=== PATIENT | female | born 1990 | race Caucasian/White ===

== ENCOUNTER 2017-03-26 05:33 | Emergency (ER) | payer SELFPAY ==
[~2017-03-26] VITALS: Ht 162.6 cm; Wt 52.2 kg
[~2017-03-26 05:33] MED LIST: ACYCLOVIR800 MG PO; AUGMENTIN1 TA2 PO; BACTRIM DS 8001 TA1 PO; BACTRIM DS 8001 TAB PO; BACTROBAN2% TP; BENTYL10 MG OR; CIPRO 500MG TA500 MG PO; DARVOCET-N 1001 EACH PO; KEFLEX 500MG.500 MG PO; LORTAB 5/500 501 TAB PO; MAGMTHWSH PO; NO HOME MEDS; NOMEDS XX; PRENATAL PLUS1 TA1 PO; PYRIDIUM 200MG200 MG PO; SEPTRA DS 800 M1 TAB PO; ULTRAM50 MG PO; VICODIN 5/500 T1 TAB PO
[2017-03-26 06:04] LABS: URINE BILIRUBIN - DIPSTICK NEGATIVE (NEG); URINE BLOOD 2+ (NEG)
[2017-03-26 06:16] LABS: LYMPH # 3.2 K/mm3 (0.7-4.5); LYMPH % 23.2 % (10-50.0)
[2017-03-26 06:19] LABS: URINE SQUAMOUS CELLS OCC #/hpf (0-5)
[2017-03-26 06:21] LABS: HEMOGLOBIN 12.7 g/dL (12.2-16.2)
--- NOTE | 2017-03-26 06:49 | Emergency Room Report ---
History of Present Illness Time Seen by MD Valdes Presenting Problem in Triage Pt arrived:Walked Presenting Problem:C/O PELVIC AND LOW BACK PAIN FOR 4 DAYS. 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 N Clinical Suspician of Infection? Y Mental Status: 1 - Regular (Normal Baseline) Sepsis Risk:Low Sepsis Risk Have you (or family members/close friends) recently traveled outside the [place]? N If Yes, where/when: Have you had exposure to infectious disease within the past month? N TB? Other? Specify: Source patient, RN notes reviewed, family, old records Exam Limitations no limitations Comment pt with 4 day hx of lower abd pain with no fever or vag d/c and she has urinary sx -no vomitnig or diarrhea Cardiac Chest Pain Chest pain indicative of cardiac No Timing/Duration this evening Severity moderate ALLERGIES Coded Allergies: Penicillins (03/26/17) Home Medications Reported Medications No Known Home Medications History Medical History General CAD? No Angina: No PR: No Hypertension? No Hyperlipidemia? No CHF? No DVT? No PE? No COPD? No Asthma? No Anemia? No GERD? No Gastric ulcers? No GI Bleed? No Hernia? No Thyroid Problems? No Hypothyroidism? No CVA? No Seizures? No Diabetes? No Insulin Dependent: No Insulin Pump: No Home FSBS? No Renal Insuffiency? No End Stage Renal Disease? No UTI? Yes Stones? No BPH? No GB Disease: No Nephritic Syndrome? No Asplenia? No Hepatitis? Yes Sickle Cell Disease? No Arthritis? No Migraines? No Cataracts? No Glaucoma? No MRSA? No HIV? No TB? No Anxiety? Yes Depression? Yes Cancer? No More? 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 Respiratory denies cough, denies shortness of breath, denies wheezing Cardiovascular denies chest pain, denies palpitations, denies syncope Gastrointestinal see HPI, abdominal pain, nausea, denies vomiting Genitourinary see HPI, dysuria, frequency. denies: discharge. Musculoskeletal denies back pain, denies joint pain, denies joint swelling, denies neck pain Skin denies rash Psychiatric/Neurological denies headache, denies seizure Physical Exam Vital Signs Vital Signs Date Time Temp Pulse Resp B/P Pulse O2 O2 Flow FiO2 Ox Delivery Rate 03/26 0540 100.3 58 20 115/83 95 - WBC >12,000 or <4,000 or 10% bands? 2 or more SIRS Criteria Met? B/P:115/83 MAP:93 Creatinine >2.0? UA output<0.5ml/kg/hr for 2 hrs? Platelet count >100,000? Lactate >2.0mmol/1? INR >1.2 or PTT > than 60 sec? Evidence of Organ Dysfunction? Provider documented clinical suspician of infection? Y Sepsis Criteria Count: 1 Sepsis Risk: Low Sepsis Risk General Appearance no apparent distress Eye Exam - bilateral eye PERRL, bilateral eye EOMI Ear, Nose, Throat normal ENT inspection Neck supple Respiratory Status No: respiratory distress. 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 No Results/Orders Laboratory Tests 03/26/17 0600: Lactic Acid 1.3 03/26/17 0600: Sodium 135 L, Potassium 3.7, Chloride 98, Carbon Dioxide 24, BUN 8, Creatinine 0.9, Estimated Creat Clear 79, Estimated GFR (MDRD) 77, Glucose 179 H, Calcium 9.0, Total Bilirubin 0.3, AST 18, ALT 18, Alkaline Phosphatase 104, Total Protein 8.6 H, Albumin 3.4, Globulin 5.2 H, Albumin/Globulin Ratio 0.7 L, WBC 13.8 H, RBC 4.20, Hgb 12.7, Hct 37.0, MCV 88.1, RDW 13.8, Plt Count 387, MPV 7.5, Gran % 71.6, Gran # 9.9 H, Lymphocytes % 23.2, Monocytes % 4.6, Eosinophils % 0.3, Basophils % 0.3, Lymphocytes # 3.2, Monocytes # 0.6, Eosinophils # 0.0, Basophils # 0.0, PUBS MCHC 34.2, MCH 30.1 03/26/17 0540: Urine Color YELLOW, Urine Appearance CLEAR, Urine pH 6.0, Ur Specific [place] 1.010, Urine Protein 2+ H, Urine Ketones NEGATIVE, Urine Blood 2+ H, Urine Nitrate NEGATIVE, Urine Bilirubin NEGATIVE, Urine Urobilinogen 0.2, Ur Leukocyte Esterase 3+ H, Urine RBC 5-10, Urine WBC 20-50, Ur Squamous Epith Cells OCC, Urine Bacteria 1+, Urine Mucus OCC, Urine Glucose NEGATIVE Current Medication Orders Sig/Lisa Start time Last Medication Dose Route Stop Time Status Admin Ceftriaxone Sodium 1 GM ONCE ONE 03/26 0745 r Sodium Chloride 50 ML IV 03/26 0814 Ketorolac 30 MG ONCE ONE 03/26 0745 AC Tromethamine IV 03/26 0746 Ceftriaxone Sodium 0 .STK-MED ONE 03/26 0741 DCr IV Ketorolac 0 .STK-MED ONE 03/26 0741 DC Tromethamine .ROUTE Sodium Chloride 50 ML .STK-MED ONE 03/26 0741 DC IV Sodium Chloride 10 ML PRN PRN 03/26 0600 AC IV 03/27 0548 Orders Procedure Date/time Status DIET-NOTHING BY MOUTH 03/[address] ABD & PELVIS W/O CONTRAST 03/[address] ABD/PELVIS REQ 03/26 617 Complete IV SALINE LOCK 03/26 549 Active CULTURE, BLOOD 03/26 549 Active URINALYSIS/COMPLETE 03/26 549 Complete URINE 03/26 549 Complete LACTIC ACID 03/26 549 Complete CBC WITH AUTO DIFF 03/26 549 Complete CHEM 12 PROFILE 08/29 0549 Complete CULTURE, URINE 03/26 0540 Active XRAY/CT/US XRAY/CT/US CT abdomen, pelvis CT interpretation by discussed w/radiologist Time results known: 733 CT Results normal/NAD Departure Departure Time of Disposition 733 Disposition DC Home or Self Care(routine) Clinical Impression Primary Impression: UTI (urinary tract infection) Qualifiers: Urinary tract infection type: acute cystitis Hematuria presence: without hematuria Qualified Code: N30.00 - Acute cystitis without hematuria Condition STABLE Referrals Robe CHAVEZ,Taj Beal Patient Instructions DI for Urinary Tract Infection (UTI) Additional Instructions use meds and see dr burton and pcp for follow up Discharge Counseling Counseled pt/family regarding diagnosis, test results, medications/RX, follow up needs Prescriptions Current Visit Scripts Ciprofloxacin HCl (Cipro 500MG TAB) 500 MG PO BID #14 TAB ED Critical Care Critical Care No at 0743
[2017-03-26] MEDS ORDERED: CIPRO 500MG TA500 MG PO (07:43)
[2017-03-26 08:41] VITALS: BP 100/53
--- NOTE | 2017-03-26 09:48 | RADIOLOGY REPORT PS360 ---
CT ABD PELVIS W/O CONTRAST CLINICAL INDICATION: Abdominal pain, lower pelvic pain, bilateral flank pain C/O PELVIC AND LOW BACK PAIN ORDERING PHYSICIAN: Kendall Garcia MD PATIENT AGE: 26 years COMPARISON: 11/04/2007 TECHNIQUE: Axial images obtained with sagittal and coronal reformats. PROCEDURE: Oral Contrast: None IV Contrast: None . FINDINGS: Study is limited without IV and oral contrast with multiple unopacified bowel loops which could obscure or mimic pathology. Clear lung bases. Liver, gallbladder, spleen, adrenal glands, and pancreas have an unremarkable unenhanced CT appearance. No obvious renal or ureteral calculi. No hydronephrosis. The left kidney is somewhat larger than the right is of questionable clinical significance. Unremarkable appendix. Moderate amount retained colonic feces. Multiple fluid-filled bowel loops are present in the pelvis which could obscure or mimic pathology. There is a IUD in place. Small amount of fluid noted in the pelvis. No free air. No acute bony anomalies. IMPRESSION: 1. Somewhat limited exam without IV and oral contrast. Multiple unopacified bowel loops are present which could obscure or mimic pathology. 2. Mildly prominent fluid-filled small bowel loops in the pelvis and left abdominal region. No obvious transition point. This may reflect ileus or enteritis. 3. Moderate amount retained colonic feces. 4. Left kidney appears somewhat larger than the right of questionable clinical significance. Urinary tract infection is a consideration. Please correlate with clinical findings.
== END 2017-03-26 08:42 | disposition home or self-care (01) ==
LOC: ER 05:33
PROVIDERS: Emergency Medicine
DX: N30.00 Acute cystitis without hematuria (principal); Z72.0 Tobacco use

== ENCOUNTER 2017-03-27 00:58 | Inpatient (IN) | payer SELFPAY ==
[2017-03-27] VITALS (8 sets, daily range): BP systolic 101–129; BP diastolic 55–80
[~2017-03-27] VITALS: Ht 162.6 cm; Wt 52.2 kg
[2017-03-27 01:31] LABS: HEMOGLOBIN 11.8 g/dL (12.2-16.2); LYMPH # 3.4 K/mm3 (0.7-4.5); LYMPH % 30.6 % (10-50.0)
--- NOTE | 2017-03-27 01:36 | Emergency Room Report ---
History of Present Illness Time Seen by MD Lozada Presenting Problem in Triage Pt arrived:Walked Presenting Problem:ABNORMAL BLOOD CX Onset of symptoms date/time:/ or onset unknown for:MEDICAL HX UNKNOWN Treatment Prior to Arrival: PT STATED SHE TOOK 1 TYLENOL 3 THAT WAS PERSCRIBED TO HER AT THE LAST VISIT TO THE ER. 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 Y Clinical Suspician of Infection? Y Mental Status: 1 - Regular (Normal Baseline) Sepsis Risk:Possible Sepsis Risk Have you (or family members/close friends) recently traveled outside the [place]? N If Yes, where/when: Have you had exposure to infectious disease within the past month? N TB? Other? Specify: Source patient, RN notes reviewed, old records Exam Limitations no limitations Comment pt with hx of iv drug use and was seen in am with lower abd pain and was sent home on cipro did not fill and had pos gram neg rods blood culture- pt with no fever or rash and no chest or jt pain - she was contcted and returned to ed - Cardiac Chest Pain Chest pain indicative of cardiac No Timing/Duration this evening Severity moderate ALLERGIES Coded Allergies: Penicillins (03/26/17) Home Medications Active Scripts Ciprofloxacin HCl (Cipro 500MG TAB) 500 MG PO BID #14 TAB Prov: 03/26/17 History Medical History General CAD? No Angina: No DE: No Hypertension? No Hyperlipidemia? No CHF? No DVT? No PE? No COPD? No Asthma? No Anemia? No GERD? No Gastric ulcers? No GI Bleed? No Hernia? No Thyroid Problems? No Hypothyroidism? No CVA? No Seizures? No Diabetes? No Insulin Dependent: No Insulin Pump: No Home FSBS? No Renal Insuffiency? No End Stage Renal Disease? No UTI? Yes Stones? No BPH? No GB Disease: No Nephritic Syndrome? No Asplenia? No Hepatitis? Yes Sickle Cell Disease? No Arthritis? No Migraines? No Cataracts? No Glaucoma? No MRSA? No HIV? No TB? No Anxiety? Yes Depression? Yes Cancer? No More? 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 Respiratory see HPI, cough, denies shortness of breath, denies wheezing Cardiovascular denies chest pain, denies palpitations, denies syncope Gastrointestinal see HPI, nausea, denies vomiting Genitourinary denies: dysuria, frequency, hesitancy, hematuria. Musculoskeletal denies back pain, denies joint pain, denies joint swelling, denies neck pain Skin denies rash Psychiatric/Neurological see HPI, denies headache, denies seizure, other Physical Exam Vital Signs Vital Signs Date Time Temp Pulse Resp B/P Pulse O2 O2 Flow FiO2 Ox Delivery Rate 03/27 0203 98.3 108 20 109/61 99 03/27 0102 98.3 110 20 129/80 98 - WBC >12,000 or <4,000 or 10% bands? 2 or more SIRS Criteria Met? B/P:109/61 MAP:96 Creatinine >2.0? UA output<0.5ml/kg/hr for 2 hrs? Platelet count >100,000? Lactate >2.0mmol/1? INR >1.2 or PTT > than 60 sec? Evidence of Organ Dysfunction? Provider documented clinical suspician of infection? Y Sepsis Criteria Count: 2 Sepsis Risk: Possible Sepsis Risk General Appearance no apparent distress Eye Exam - bilateral eye PERRL, bilateral eye EOMI Ear, Nose, Throat normal ENT inspection Neck supple Respiratory Status No: respiratory distress. Lung Sounds bilateral: lungs clear. 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 No Results/Orders Laboratory Tests 03/27/17 0140: Opiates Screen POSITIVE H, Urine Methadone Screen NEGATIVE, Barbiturates NEGATIVE, Phencyclidine Screen NEGATIVE, Amphetamines Screen POSITIVE H, Benzodiazepines Screen NEGATIVE, Cocaine Screen NEGATIVE, Marijuana (THC) Screen POSITIVE H, Urine Color DK YELLOW, Urine Appearance SL CLOUDY, Urine pH 6.0, Ur Specific [place] 1.020, Urine Protein 1+ H, Urine Ketones NEGATIVE, Urine Blood 1+ H, Urine Nitrate NEGATIVE, Urine Bilirubin NEGATIVE, Urine Urobilinogen 0.2, Ur Leukocyte Esterase 1+ H, Urine RBC 5-10, Urine WBC 20-50, Ur Squamous Epith Cells 3-5, Urine Bacteria 1+, Urine Mucus OCC, Urine Glucose NEGATIVE 03/27/17 013: Lactic Acid 1.9 03/27/17 013: Sodium 135 L, Potassium 3.5, Chloride 96 L, Carbon Dioxide 27, BUN 11, Creatinine 1.0, Estimated Creat Clear 71, Estimated GFR (MDRD) 68, Glucose 100, Calcium 8.7, Total Bilirubin 0.4, AST 23, ALT 27, Alkaline Phosphatase 105, Creatine Kinase 44, CK-MB (CK-2) Rel Index 1.1, CK and CKMB Interp < 0.5, Troponin I < 0.02, Total Protein 8.6 H, Albumin 3.4, Globulin 5.2 H, Albumin/ Globulin Ratio 0.7 L, WBC 11.2 H, RBC 3.93 L, Hgb 11.8 L, Hct 35.6 L, MCV 90.6, RDW 13.6, Plt Count 365, MPV 8.1, Gran % 64.7, Gran # 7.3, Lymphocytes % 30.6, Monocytes % 4.1, Eosinophils % 0.4, Basophils % 0.3, Lymphocytes # 3.4, Monocytes # 0.5, Eosinophils # 0.0, Basophils # 0.0, PUBS MCHC 33.0, ESR 108 H, MCH 29.9 Current Medication Orders Sig/Lisa Start time Last Medication Dose Route Stop Time Status Admin Sodium Chloride 10 ML PRN PRN 03/27 115 AC IV 03/28 115 Orders Procedure Date/time Status Decision to admit 08/30 0238 Active CHEST(2 VIEWS-NOT PORTABLE) 03/27 235 Active IV SALINE LOCK 03/27 116 Active CULTURE, BLOOD 03/27 116 Active URINALYSIS/COMPLETE 03/27 116 Complete LACTIC ACID 03/27 116 Complete SED RATE 03/27 116 Complete DRUG ABUSE SCREEN (TRIAGE) 03/27 116 Complete C-REACTIVE PROTEIN 03/27 116 Complete COMPLETE METABOLIC PANEL 03/27 116 Complete CBC WITH AUTO DIFF 03/27 116 Complete CARDIAC ENZYMES 03/27 116 Complete XRAY/CT/US XRAY/CT/US XRAY chest XR interpretation by reviewed by me Xray Results normal/NAD Departure Departure Time of Disposition 0252 Disposition Still a Patient Clinical Impression Primary Impression: Gram-negative bacteremia Secondary Impressions: IV drug abuse, Tobacco use Condition STABLE ED Critical Care Critical Care No at 0304
[2017-03-27 01:44] LABS: URINE BILIRUBIN - DIPSTICK NEGATIVE (NEG); URINE BLOOD 1+ (NEG)
[2017-03-27 01:58] LABS: AMPHETAMINES/METAMPHETAMINES POSITIVE ng/mL (<1000)
[2017-03-27 02:04] LABS: BUN 11 mg/dL (7-18); GFR (ESTIMATED) 68 ML/MIN (59-)
--- NOTE | 2017-03-27 05:59 | RADIOLOGY REPORT PS360 ---
CHEST(2 VIEWS-NOT PORTABLE) HISTORY: cough ORDERING PHYSICIAN: Magen Garcia MD PATIENT AGE: 26 years COMPARISON: 12/20/2009 FINDINGS: Unremarkable cardiovascular structures. Hyperinflation with attenuation of the peripheral pulmonary vessels consistent with small airway disease. There is prominence of the anterior clear space. No lobar consolidation or collapse. No acute bony anomalies IMPRESSION Hyperinflation which may be seen with asthma or bronchitis, otherwise negative
--- NOTE | 2017-03-27 12:02 | ACUTE CARE PROGRESS NOTE (QUA) ---
Progress Notes Subjective Date 03/27/17 Time 1158 Assessment/Plan Problem List 1. Gram-negative bacteremia 2. UTI (urinary tract infection) Plan: make medication changes This inpt stay is expected to cross 2 MNs from start of care Yes Antibiotic Stewardship (2) Current Culture Results Microbiology 03/27 130 BLOOD: Anaerobic Blood Culture - RECD 03/27 130 BLOOD: Aerobic Blood Culture - RECD INITIAL PCR RESULTS = E COLI Infxn that will respond? Yes Right drug,dose,and route? Yes (CHANGED ANTIBIOTIC SELECTION) More targeted antbx? Yes Comment: PT EMPIRICALLY STARTED ON LEVQUIN FOR UTI/POSITIVE BLOOD CULTURES. PHARMACIST REVIEWED C&S AND PCR INITIAL RESULTS SHOWED E COLI. BASED ON FACILITY'S ANTIBIOGRAMS, SUGGESTED SWITCHING FROM LEVAQUIN TO ROCEPHIN 1 GM IVPB EVERY 24 HOURS. CHUCHO BRUNO APRN AGREED. at 1201
--- NOTE | 2017-03-27 12:48 | PHARMACY CLINIC NOTE ---
Patient Demographics Patient Demographics Admission date: 03/27/17 Date: 03/27/17 Time: 1247 Allergies Coded Allergies: Penicillins (03/26/17) HEIGHT- FT: 5 IN: 4.00 K.164 VTE General Information Labs: Laboratory Tests 03/27 0130 Hematology Hgb (12.2 - 16.2 g/dL) 11.8 L Hct (37.0 - 47.0 %) 35.6 L Plt Count (142 - 424 K/mm3) 365 Disclaimer The following section includes nursing documentation that has been pulled in for pharmacy review. Patient's VTE score: 1 Patient's VTE Risk: VERY LOW RISK Clinical trial participant? No VTE prophylaxis [id number] [id number] VTE prophylaxis ordered? Yes Type of prophylaxis/treatment: MINNIE at [id number]
--- NOTE | 2017-03-27 13:21 | HISTORY AND PHYSICAL REPORT ---
Demographics: Admit date: 03/27/17 Chief complaint: positive blood culture PRIMARY DIAGNOSIS: GRAM NEGATIVE BACTERIA Allergies: Coded Allergies: Penicillins (03/26/17) History of present illness: History of present illness: this wf who was in the ed on the and had evaal for lower abd pain with possible uti and stable labs and nondiagnostic ct - she was d/c on cipro and follow up in office- she was discovered to have positive e coli blood cultures and i called pt to return to ed for eval- she had not started abx but had been given abx iv on prev visit- she admitted to iv drug use and no other acute c/o except feeling ill- she was admitted for eval and treatment as inc esr and c reat protein - Past medical history: Family HX Family Hx Insignificant Yes Immunization HX DT/Tetanus 1-4 Years Ago Pneumonia Never Had TB Test in last year Yes Result Unknown General CAD? No Angina: No IN: No Hypertension? No Hyperlipidemia? No CHF? No DVT? No PE? No COPD? No Asthma? No Anemia? No GERD? No Gastric ulcers? No GI Bleed? No Hernia? No Thyroid Problems? No Hypothyroidism? No CVA? No Seizures? No Diabetes? No Insulin Dependent: No Insulin Pump: No Home FSBS? No Renal Insuffiency? No UTI? Yes Stones? No BPH? No GB Disease: No Nephritic Syndrome? No Asplenia? No Hepatitis? Yes Sickle Cell Disease? No Arthritis? No Migraines? No Cataracts? No Glaucoma? No MRSA? No HIV? No TB? No Anxiety? Yes Depression? Yes Cancer? No More? Yes Additional hx: HEP C Past Surgical HX Previous Surgery?Y Tonsils MYRINGOTOMY D&E 02/08/08 Current home meds: Active Scripts Ciprofloxacin HCl (Cipro 500MG TAB) 500 MG PO BID #14 TAB Prov: 03/26/17 Social Hx: Smoking HX Tobacco Yes Type Cigarettes Packs/day < 1 PACK Are you/the child exposed to second-hand smoke: No Alcohol Alcohol: No Hx of Drug Use Drug Use? Yes Drug(s) of Choice: heroin Patien't marital status is single Patient's support system is fair Review of systems: Constitutional see HPI, malaise. No: chills, fever. Eyes No: drainage. Ears, Nose, Mouth, Throat No ear discharge, No epistaxis, No throat pain Respiratory No: cough, shortness of breath, wheezing. Cardiovascular No chest pain, No palpitations, No syncope Gastrointestinal/Abdominal see HPI, No abdominal pain, No nausea, poor appetite, poor fluid intake, No vomiting Genitourinary No: discharge, dysuria, frequency, hesitancy, hematuria. Musculoskeletal No: back pain, joint pain, joint swelling, neck pain. Skin No: rash. Neurological No: headache, parasthesia, seizure disorder. Psychiatric No: no symptoms reported. Exam: Lab data for last 24 hours: Laboratory Tests 03/27/17 0140: Opiates Screen POSITIVE H, Urine Methadone Screen NEGATIVE, Barbiturates NEGATIVE, Phencyclidine Screen NEGATIVE, Amphetamines Screen POSITIVE H, Benzodiazepines Screen NEGATIVE, Cocaine Screen NEGATIVE, Marijuana (THC) Screen POSITIVE H, Urine Color DK YELLOW, Urine Appearance SL CLOUDY, Urine pH 6.0, Ur Specific [place] 1.020, Urine Protein 1+ H, Urine Ketones NEGATIVE, Urine Blood 1+ H, Urine Nitrate NEGATIVE, Urine Bilirubin NEGATIVE, Urine Urobilinogen 0.2, Ur Leukocyte Esterase 1+ H, Urine RBC 5-10, Urine WBC 20-50, Ur Squamous Epith Cells 3-5, Urine Bacteria 1+, Urine Mucus OCC, Urine Glucose NEGATIVE 03/27/17 0130: Lactic Acid 1.9 03/27/17 0130: Sodium 135 L, Potassium 3.5, Chloride 96 L, Carbon Dioxide 27, BUN 11, Creatinine 1.0, Estimated Creat Clear 71, Estimated GFR (MDRD) 68, Glucose 100, Calcium 8.7, Total Bilirubin 0.4, AST 23, ALT 27, Alkaline Phosphatase 105, Creatine Kinase 44, CK-MB (CK-2) Rel Index 1.1, CK and CKMB Interp < 0.5, Troponin I < 0.02, Total Protein 8.6 H, Albumin 3.4, Globulin 5.2 H, Albumin/ Globulin Ratio 0.7 L, WBC 11.2 H, RBC 3.93 L, Hgb 11.8 L, Hct 35.6 L, MCV 90.6, RDW 13.6, Plt Count 365, MPV 8.1, Gran % 64.7, Gran # 7.3, Lymphocytes % 30.6, Monocytes % 4.1, Eosinophils % 0.4, Basophils % 0.3, Lymphocytes # 3.4, Monocytes # 0.5, Eosinophils # 0.0, Basophils # 0.0, PUBS MCHC 33.0, ESR 108 H, MCH 29.9 Microbiology 03/27 130 BLOOD: Anaerobic Blood Culture - RECD 03/27 130 BLOOD: Aerobic Blood Culture - RECD 03/27 130 BLOOD: Anaerobic Blood Culture - RECD 03/27 130 BLOOD: Aerobic Blood Culture - RECD Admission vital signs: 1ST Vital Signs Result Date Time Pulse Ox 98 03/27 102 B/P 129/80 03/27 102 Temp 98.3 03/27 102 Pulse 110 03/27 102 Resp 20 03/27 102 O2 Delivery OXYGEN 03/27 321 Exam General appearance: alert, awake Eyes: anicteric, PERRLA ENT: dry mucous membranes Neck: no JVD Cardiovascular: regular rate & rhythm, murmur Respiratory: clear to auscultation, no respiratory distress ABD: soft, no tenderness, no guarding, no organomegaly Genitourinary: no hematuria Extremities: moves all, no calf tenderness Musculoskeletal: equal muscle strength Skin: intact 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 Gram-negative bacteremia 2. UTI (urinary tract infection) 3. IV drug abuse 4. Tobacco use Plan: will give abx for 10 days at 1320
--- NOTE | 2017-03-27 17:01 | RADIOLOGY REPORT PS360 ---
PROCEDURE: 2-D M-mode and color Doppler study INDICATIONS FOR THE TEST: Chest pain + COPD Heart Murmur Tobacco Smoking+ Palpitations Fatigue Syncope Edema Hypertension Diabetes Mellitus Rheumatic Fever SOB PATRICK Obesity Hyperlipidemia Family History HD Additional History DRUG USER CRYSTAL METH DRUG OF CHOICE, HEROIN USER, + DRUG CULTURES PATIENT INFORMATION HEIGHT: 64 WEIGHT:115 GENDER: Female B/P: 2-D/M-MODE INTERPRETATION: 2-D MEASUREMENTS OBSERVED VALUES IN CMS Right Ventricular Dimension (RVDd) 2.2 Interventricular Septum (Thickness)(IVsd) 0.9 Left Ventricular Internal Dimensions(LVIDd) 4.8 Left Ventricular Posterior Wall (Thickness)(LVPWd) 0.7 Aortic Root 3.0 Aortic Cusp Separation 2.1 Left Atrial Dimensions (LAD) 2.7 2D 1. Left atrium is normal size, left ventricle is normal size, there is no concentric left ventricular hypertrophy, visually estimated ejection fraction 55% with no obvious regional wall motion abnormality. 2. The right atrium and right ventricle are normal size and contractility. 3. The aortic, mitral and tricuspid valve are grossly normal. 4. The pulmonic valve is poorly visualized. 5. No significant pericardial effusion noted. DOPPLER INTERROGATION: Doppler interrogation of the aortic mitral and tricuspid valvular presence of trace mitral and tricuspid regurgitation, tricuspid and jet velocity insufficient for calculation of the right ventricular systolic pressure, diastolic parameters are within normal range. CONCLUSION: 1. Normal left ventricular size, preserved left ventricular systolic function, visually estimated ejection fraction 55% with no obvious regional wall motion abnormality ,diastolic parameters are within normal range. 2. Trace mitral and tricuspid regurgitation. 3. No significant pericardial effusion noted.
[2017-03-28 03:11] VITALS: BP 103/59
[2017-03-28 06:00] VITALS: BP 103/60
[2017-03-28 06:18] LABS: LYMPH # 3.6 K/mm3 (0.7-4.5)
[2017-03-28 06:43] LABS: HEMOGLOBIN 10.7 g/dL (12.2-16.2)
[2017-03-28 08:00] VITALS: BP 103/64
[2017-03-28 08:40] LABS: HIV Screen 4th Generation wRfx Non Reactive (Non Reactive)
[2017-03-28 08:49] VITALS: BP 103/60
--- NOTE | 2017-03-28 09:00 | ACUTE CARE PROGRESS NOTE (QUA) ---
Progress Notes Subjective Date 03/28/17 Time 0857 Patient/family reports: feeling better Nursing reports: alert, no complaints Objective Findings Laboratory Tests 03/28/17 0555: Sodium 139, Potassium 4.1, Chloride 104, Carbon Dioxide 29, BUN 5 L, Creatinine 0.8, Estimated Creat Clear 89, Estimated GFR (MDRD) 88, Glucose 110 H, Calcium 8.3 L, WBC 7.9, RBC 3.64 L, Hgb 10.7 L, Hct 33.1 L, MCV 90.8, RDW 13.6, Plt Count 383, MPV 7.7, Gran % 47.0, Gran # 3.7, Lymphocytes % 45.0, Monocytes % 4.8 , Eosinophils % 2.7, Basophils % 0.5, Lymphocytes # 3.6, Monocytes # 0.4, Eosinophils # 0.2, Basophils # 0.0, PUBS MCHC 32.1, MCH 29.1 Vital Signs Date Time Temp Pulse Resp B/P Pulse O2 O2 Flow FiO2 Ox Delivery Rate 03/28 0849 98.4 77 18 103/60 96 03/28 0600 98.4 77 18 103/60 96 ROOM AIR 03/28 0311 98.9 95 18 103/59 99 ROOM AIR 03/27 2025 98.2 88 18 102/64 98 03/27 2000 98.2 88 18 102/64 98 ROOM AIR 03/27 1600 98.0 78 18 112/55 99 ROOM AIR Current Medications Diphenhydramine HCl 25 MG Q6HP PRN PO Diphenhydramine HCl 0 .STK-MED ONE PO (DC) Levofloxacin/Dextrose 150 ML 2100 IV (DC) Sodium Chloride 1,000 ML .STK-MED ONE IV (DC) Nicotine 0 .STK-MED ONE TD (DC) Ceftriaxone Sodium 1 GM 1300 IV Sodium Chloride 50 ML Acetaminophen 650 MG Q4HP PRN PO Acetaminophen/Codeine Phosphate 1 EACH Q4HP PRN PO Nicotine 21 MG DAILYP PRN TD Ondansetron HCl 4 MG Q6HP PRN IV Sodium Chloride 1,000 ML .Q10H IV Sodium Chloride 10 ML PRN PRN IV Last VS-Temp:98.4 B/P:103/60 Pulse:77 Resp:18 SaO2:96 ROOM AIR Last weight lbs:115 oz:0 [id number] Method:Stated Exam General appearance: normal appearance, awake, no acute distress Eyes: normal exam ENT: normal exam Neck: normal inspection Cardiovascular: normal exam, regular rate & rhythm Respiratory: normal exam ABD: normal exam, soft Genitourinary: normal voiding & quantity Extremities: normal exam Musculoskeletal: normal exam Skin: normal exam, intact, warm Neuro: normal exam, alert, intact, oriented Reviewed: allergies, medications, vital signs, lab results Assessment/Plan Problem List 1. Gram-negative bacteremia 2. UTI (urinary tract infection) 3. IV drug abuse 4. Tobacco use Patient condition Stable Plan: continue current care This inpt stay is expected to cross 2 MNs from start of care Yes Comments: ROUNDED WITH CALLIE, patient will talk with friends to see if she has away to get back to the hospital every day for 10 days for IM injections Antibiotic Stewardship (2) Current Culture Results Microbiology 03/27 130 BLOOD: Anaerobic Blood Culture - RECD 03/27 130 BLOOD: Aerobic Blood Culture - RECD Infxn that will respond? Yes Right drug,dose,and route? Yes (CHANGED ANTIBIOTIC SELECTION) More targeted antbx? Yes at 0900
[2017-03-28 09:42] LABS: HBsAg Screen Negative (Negative); Hep A Ab, IgM Negative (Negative); Hep B Core Ab, IgM Negative (Negative); Hep C Virus Ab >11.0 (0.0-0.9)
[2017-03-28 15:59] VITALS: BP 92/64
[2017-03-28] MEDS ORDERED: INVANZ 1 GM1 GM IM (17:13)
--- NOTE | 2017-03-28 17:18 | DISCHARGE SUMMARY STANDARD ---
Demographics Admit date: 03/27/17 Discharge date: 03/28/17 History of present illness History of present illness this wf who was in the ed on the and had evaal for lower abd pain with possible uti and stable labs and nondiagnostic ct - she was d/c on cipro and follow up in office- she was discovered to have positive e coli blood cultures and i called pt to return to ed for eval- she had not started abx but had been given abx iv on prev visit- she admitted to iv drug use and no other acute c/o except feeling ill- she was admitted for eval and treatment as inc esr and c reat protein - Hospital Course Hospital Course: bacterima/uti- iv antibotics, monitoring vs and conditon, Blood cx + for ecoli- neg esbl- sensitive to invanz pt states doing better today would like to go home and come back daily for im injections x 10 days. pt has found tranportation for daily injections x 10 days. Discharge diagnoses Problem List 1. Gram-negative bacteremia 2. UTI (urinary tract infection) 3. IV drug abuse 4. Tobacco use Medications Medications: Discharge meds are as noted. Follow up Follow up in office in: 5 DAYS with: Thomas CHAVEZ,Magen Zavala Comment: rounded with thomas at [id number]
[2017-03-28 18:08] VITALS: BP 92/64
--- OUTSIDE RECORDS SUMMARY | 2017-05-03 10:11 | External Medical Summary Rpt ---
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 t by Light microsc opy Erythro 5-10 0 complet cytes 017 ed [Presen 05:40 ce] in Urine sedimen t by Light microsc opy Epithel OCC 0#/hp complet ial 017 f - ed cells.s 05:40 5#/hp quamous f [Presen ce] in Urine sedimen t by Microsc opy high power field Leukocy 20-50 O complet cary 017 wbc/hpf ed [#/volu 05:40 me] in Urine Urinalysis dipstick W Reflex Microscopic panel in Urine (03-26-2017 05:40) Appeara CLEAR CLEAR complet nce of 017 ed Urine 05:40 Bilirub NEGATIV NEG complet in 017 E ed [Presen 05:40 ce] in Urine by Test strip Erythro 2+ NEG Abnorma complet cytes 017 l ed [Presen 05:40 ce] in Urine Color YELLOW YELLOW complet of 017 ed Urine 05:40 Ketones NEGATIV NEG complet 017 E ed [Presen 05:40 ce] in Urine by Automat ed test strip Mucus 3+ NEG Abnorma complet [Presen 017 l ed ce] in 05:40 Urine sedimen t by Light microsc opy Nitrite NEGATIV NEG complet 017 E ed [Presen 05:40 ce] in Urine by Test strip Urobili 0.2 NEG complet nogen 017 ed [Presen 05:40 ce] in Urine by Test strip B-HCG Ur Ql (05-28-2013 16:30) B-HCG NEGATIV NEG complet Ur Ql 013 E ed 16:30 URINALYSIS/COMPLETE (05-28-2013 16:30) URINE 05-28- YELLOW YELLOW complet COLOR 013 ed 16:30 URINE 05-28- CLEAR CLEAR complet APPEARA 013 ed NCE 16:30 URINE 05-28- NEGATIV NEG complet GLUCOSE 013 E ed - 16:30 DIPSTIC K URINE 05-28- 2+ NEG complet BILIRUB 013 ed IN - 16:30 DIPSTIC K URINE 05-28-2 1+ NEG complet KETONE 013 mg/dL ed 16:30 URINE 05-28-2 Greater 1.005-1 complet SPECIFI 013 than .030 ed C 16:30 or GRAVITY equal to 1.030 URINE 05-28-2 3+ NEG complet BLOOD 013 ed 16:30 URINE 05-28-2 6.5 UNK 5.0-8.5 complet PH 013 ed 16:30 URINE 05-28-2 3+ NEG complet PROTEIN 013 mg/dL ed - 16:30 DIPSTIC K URINE 05-28-2 1.0 NEG complet UROBILI 013 E.U./dL ed NOGEN - 16:30 DIPSTIC K URINE 05-28-2 POSITIV NEG complet NITRATE 013 E ed - 16:30 DIPSTIC K URINE 05-28-2 TRACE NEG complet LEUK 013 ed ESTERAS 16:30 E URINE 05-28- 50-100 0 complet RBC 013 rbc/hpf ed 16:30 URINE 10-31-2 3-5 O complet WBC 013 wbc/hpf ed 16:30 URINE 10-31-2 OCC 0-5 complet SQUAMOU 013 #/hpf ed S CELLS 16:30 URINE 05-28-2 2+ O complet BACTERI 013 ed A 16:30 Procedures Procedure DOS Code Location Performer Comment INCISION 03729 RADHA RADHA & 3 TRICE TRICE DRAINAGE ABSCESS SIMPLE/SI NGLE IAADIADOO 11186 FLORES FLORES 3 DON DON STREPTOCO CCUS GROUP A RADIOLOGI 62675 [facility] EXAMINATI INC INC ON TIBIA & FIBULA 2 VIEWS RADEX 30487 [facility] ANKLE 3 [facility] COMPLETE INC INC MINIMUM 3 VIEWS CRTCHS E0114 [facility] UNDARM 3 OTH THAN WOOD PAIR PAD TIP&HNDGR IP APPLICATI 92612 [facility] RAMSE[facility] ON LONG 3 [facility] LEG INC INC SPLINT THIGH ANKLE/TOE S ANTIBODY 03767 COMBINED COMBINED CHLAMYDIA 3 PHYSICIAN PHYSICIAN S LA S LA CUL BACT 70675 COMBINED COMBINED XCPT 3 PHYSICIAN PHYSICIAN URINE S LA S LA BLOOD/STO OL AEROBIC ISOL HEPATITIS 99381 [facility] RAMSE[facility] B CORE 3 [facility] ANTIBODY INC INC HBCAB TOTAL HEPATITIS 45057 [facility] RAMSE[facility] B SURF 3 [facility] [address] [facility] RAMSE[facility] HEPATITIS 3 [facility] B INC INC SURFACE ANTIGEN ANTIBODY 13744 [facility] RAMSE[facility] HERPES 3 [facility] SMPLX INC INC TYPE 1 ANTIBODY 02698 [facility] RAMSE[facility] VIRUS NOT 3 [facility] INC INC ELSEWHERE SPECIFIFE D HEPATITIS 33785 [facility] RAMSEY C 3 [facility] ANTIBODY INC INC HEPATITIS 92788 [facility]SE[facility] A 3 [facility] ANTIBODY INC INC HAAB INFLUENZA 73877 ANA M ANA M VACC 2 FRANSICO FRANSICO IIV3 SPLIT VIRUS PRSRV FREE ID INCISION 00580 [facility] & 2 EMERGENCY [place] DRAINAGE PHYS PSC ABSCESS SIMPLE/SI NGLE IADNA 83582 PATHOLOGY PICKLESIM NEISSERIA 2 & ER JR JAIMEE CYTOLOGY GONORRHOE LAB AE AMPLIFIED PROBE TQ CYTP C/V 52745 PATHOLOGY PICKLESIM AUTO THIN 2 & ER JR JAIMEE LYR CYTOLOGY PREPJ SCR LAB MNL RESCR PHYS IADNA 71868 PATHOLOGY PICKLESIM CHLAMYDIA 2 & ER JR JAIMEE CYTOLOGY TRACHOMAT LAB IS AMPLIFIED PROBE TQ ANESTHESI 48232 YOHANNES WHITE III A 2 DAGO OUSMANE DELIVERY ONLY 08768 [facility] DELIVERY 2 OLIVIA OLIVIA ONLY LOW 741 [facility] CERVICAL 2 [facility] [place] [address] DEVONTE GAMA KENNY SURG 2 JIN & PATHOLOGY DUBILIER GROSS&TRICE ROSCOPIC EXAM US PREG 51315 [facility] UTERUS 2 OLIVIA OLIVIA REAL TIME F/U TRNSABDL PER FETUS IADNA 73857 MEDICAL MEDICAL STREPTOCO 2 DIAGNOSTI DIAGNOSTI CCUS C LAB LLC C LAB [facility] GROUP B [place] T[place] P[place] 96685 [facility] UTERUS 1 OLIVIA OLIVIA REAL TIME F/U TRNSABDL PER FETUS SMR PRIM 57791 [facility] SRC WET 1 OLIVIA OLIVIA MOUNT NFCT AGT DIAB G0109 [facility] SELF-MGMT 1 [facility] TRN [facility] HOSP GROUP SESSION PER 30 MIN GLUCOSE 28242 LAB DARLYN LAB DARLYN TOLERANCE 1 AMERIC AMERIC TEST GTT HOLDINGS HOLDING 3 SPECIMENS GLUCOSE 91545 LAB D[facility] LAB DARLYN TOLERANCE 1 AMERIC AMERIC EA ADDL HOLDINGS HOLDING BEYOND 3 SPECIMENS GLUCOSE 00299 LAB [facility] LAB DARLY[facility] POST 1 AMERIC AMERIC GLUCOSE HOLDINGS HOLDING DOSE BLOOD 88424 LAB [facility] LAB D[facility] COUNT 1 AMERIC AMERIC COMPLETE HOLDINGS HOLDING AUTOMATED ANTIBODY 73242 LAB [facility] LAB D[facility] SCREEN 1 AMERIC AMERIC RBC EACH HOLDINGS HOLDING [place] PREG 36846 [place] [facility] UTERUS 1 PIPE ORGAN MECHANIC APPRENTICE OLIVIA AFTER 1ST ASSOCIATE TRIMEST S 1/ GESTATION ALPHA-FET 90641 LAB COR LAB COR OPROTEIN 1 YSABEL YSABEL [place] [address] LAB COR LAB COR ESTRIOL 1 YSABEL YSABEL HOLDING HOLDING [place] GONADOTRO 69159 LAB COR LAB COR PIN 1 YSABEL YSABEL CHORIONIC HOLDING [place] [address] LAB COR LAB COR 1 YSABEL YSABEL HOLDING HOLDING [place] US PREG 49877 [place] [facility] UTERUS 1 PIPE ORGAN MECHANIC APPRENTICE OLIVIA REAL TIME ASSOCIATE W/IMAGE [place] [address] LAB DARLYN LAB DARLYN NON-IMMUN 1 AMERIC AMERIC OLOGIC HOLDING HOLDING OTH/THN CYTOPATHI C US PREG 23367 [place] [facility] UTERUS 1 PIPE ORGAN MECHANIC APPRENTICE OLIVIA REAL TIME ASSOCIATE W/IMAGE S DCMTN TRANSVAG CYTP C/V 27046 PATHOLOGY PATHOLOGY AUTO THIN 1 & & LYR CYTOLOGY CYTOLOGY PREPJ SCR LAB LAB MNL RESCR PHYS IADNA 42032 PATHOLOGY PATHOLOGY NEISSERIA 1 & & CYTOLOGY CYTOLOGY GONORRHOE LAB LAB AE AMPLIFIED PROBE TQ IADNA 18736 PATHOLOGY PATHOLOGY CHLAMYDIA 1 & & CYTOLOGY CYTOLOGY TRACHOMAT LAB LAB IS AMPLIFIED PROBE TQ DRUG SCR G0434 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 NOT 1 Y Y CHROMATOG CORPORATI CORPORATI RAPHIC; ON OF AM ON OF AM ANY NUMBER PT ENC GONADOTRO 90725 COMBINED COMBINED PIN 1 PHYSICIAN PHYSICIAN MOYA S LA S LA QUANTITAT LUIZ ORTHOPANT 55550 THE BA[facility] OGRAM 1 IMPLANT & DON ORAL SURGERY C OPHTH 88636 [place] [facility], MEDICAL 0 VISION CHAPARRITA M XM&EVAL COMPRHNSV ESTAB PT 1/> REMOVAL 73552 [facility] IMPLANTAB 0 PHYSICIAN SUSY LE GROUP CONTRACEP PCC TIVE CAPSULES CYTP C/V 63040 PATHOLOGY PATHOLOGY AUTO THIN 0 & & LYR CYTOLOGY CYTOLOGY PREPJ SCR LAB LAB MNL RESCR PHYS IADNA 34326 PATHOLOGY PATHOLOGY NEISSERIA 0 & & CYTOLOGY CYTOLOGY GONORRHOE LAB LAB AE AMPLIFIED PROBE TQ IADNA 03256 PATHOLOGY PATHOLOGY CHLAMYDIA 0 & & CYTOLOGY CYTOLOGY TRACHOMAT LAB LAB IS AMPLIFIED PROBE TQ ECG 99756 [facility]RA[facility]IO RAMSEY ROUTINE 0 [facility] ECG INC INC W/LEAST 12 LDS TRCG ONLY W/O I&R RADIOLOGI 07638 PAULO ENAMORADO C EXAM 0 MEDICAL NASIM CHEST 2 IMAGING VIEWS ASSOCIATE FRONTAL&L S ATERAL ECG 63603 BRAULIO JORDANMIE ROUTINE 0 [facility] [place] W/LEAST PROF SERV 12 LDS I&R ONLY OPHTH 76600 [place], MEDICAL 9 VISION CHAPARRITA M XM&EVAL COMPRHNSV ESTAB PT 1/> IM ADM 41322 [facility] PRQ ID 9 [facility] SUBQ/IM [facility] NJXS 1 BANK ACCT VACCINE MPSV4 20841 [facility] VACCINE 9 [facility] [place] ACYW-135 BANK ACCT SUBQ USE IM ADM 18497 [facility] PRQ ID 9 HEALTH CO HEALTH SUBQ/IM [facility] NJXS 1 BANK ACCT VACCINE IM ADM 78905 [facility] PRQ ID 8 HEALTH CO HEALTH SUBQ/IM [facility] NJXS 1 BANK ACCT VACCINE URINE 61778 [facility] RAMSEY 8 [facility] TEST INC INC VISUAL COLOR CMPRSN METHS BLOOD 33140 BRA[facility] RAMSEY COUNT 8 [facility] COMPLETE INC INC AUTO&AUTO DIFRNTL WBC URNLS DIP 48744 [facility] RAMSEY 8 [facility] STICK/TAB INC INC LET REAGENT AUTO MICROSCOP Y CULTURE 84435 [facility]RA[facility]IO RAMSEY BACTERIAL 8 [facility] INC INC QU[place]TTAT[place] [address] PATHOLOGY PATHOLOGY SURG 8 & & PATHOLOGY CYTOLOGY CYTOLOGY LAB LAB GROSS&TRICE ROSCOPIC EXAM ANESTHESI 84056 Grecia DOMINGUEZ 8 ANESTH CJ Ji INCOMPLET OF THE E/MISSED [place] P[place] 40754 PAULO ENAMORADO, UTERUS 8 MEDICAL NASIM REAL TIME IMAGING W/IMAGE ASSOCIATE DCMTN S TRANSVAG US PREG 87696 ENDY KAY, UTERUS 8 RAHUL Lewis REAL TIME W/IMAGE DCMTN TRANSVAG IADNA 24532 [facility] [place], HERPES 8 [place] INC DOROTHY D SOMPLX VIRUS AMPLIFIED PROBE TQ IADNA 90424 [facility] [place], NEISSERIA 8 [place] DOROTHY D GONORRHOE AE AMPLIFIED PROBE TQ IADNA 14423 [facility] [place], CHLAMYDIA 8 [place] INC DOROTHY D TRACHOMAT IS AMPLIFIED PROBE TQ CYTP 01715 [facility] [place], CERV/VAG 8 [place] INC DOROTHY D AUTO THIN LAYER PREP MNL SCREEN GONADOTRO 79093 COMBINED COMBINED PIN 8 PHYSICIAN PHYSICIAN CHORIONIC S LAB S LAB QUANTITAT LUIZ URINE 99348 [facility] 8 [facility] TEST [facility] VISUAL BANK ACCT COLOR CMPRSN METHS URINE 69957 [facility] RAMSEY 8 [facility] TEST INC INC VISUAL COLOR CMPRSN METHS BASIC 23413 BRAULIO RAMSEY METABOLIC 8 [facility] [place] [address] [place] [facility], ABDOMEN 8 MEDICAL NASIM W/O IMAGING CONTRAST ASSOCIATE MATERIAL S URNLS DIP 00879 [facility] RAMSEY 8 [facility] STICK/TAB INC INC LET REAGENT AUTO MICROSCOP Y BLOOD 52547 [facility]RA[facility] RAMSEY COUNT 8 [facility] COMPLETE INC INC AUTO&AUTO DIFRNTL WBC CT PELVIS 01979 [place] [facility], W/O 8 MEDICAL NASIM CONTRAST IMAGING MATERIAL ASSOCIATE S 3D 48351 BRA[facility] RAMSEY RENDERING 8 [facility] INC INC W/INTERP& POSTPROC DIFF WORK STATION CULTURE 24007 [facility] RAMSEY BACTERIAL 8 [facility] INC INC QUANTTATI VE COLONY COUNT URINE RADEX 80156 FLORES, FLORES, RIBS UNI 8 DON R DON R W/POSTERO ANT CH MINIMUM 3 VIEWS APPLICATI 93.54 [place] ON OF AHMET CHAVEZ SPLINT OTHER 86.04 Kendall BHARDWAJ & Radha CHAVEZ SUBQ I D Encounters Encounter Start End Date Code Location Performer Type Date EMERGENCY 95284 BRI GARCIA 5 5 PHYSICIAN TRICE DEPARTMEN S, PLLC T VISIT MODERATE SEVERITY EMERGENCY 50846 [facility] 4 4 [facility] DEPARTMEN EMERGENCY T VISIT PHYSI MODERATE SEVERITY EMERGENCY 45634 [facility] 4 4 [facility] DEPARTMEN T VISIT MODERATE SEVERITY Emergency PAWEL Garcia MD (ER) 3 13:13 3 13:51 [facility] EMERGENCY 78392 RADHA GARCIA 3 3 TRICE TRICE DEPARTMEN T VISIT HIGH/URGE NT SEVERITY Emergency PAWEL Jackson MD (ER) 3 16:40 3 17:23 [facility] EMERGENCY 68129 SHERYL COLON 3 3 DEPARTMEN T VISIT MODERATE SEVERITY OFFICE 73688 SANDRA DUMONT 3 3 DON DON T VISIT 15 MINUTES Emergency PAWEL José MD (ER) 3 14:40 3 14:55 [facility] EMERGENCY 85385 BRAULIO 3 3 [facility] DEPARTMEN INC T VISIT LOW/MODER SEVERITY EMERGENCY 81676 MYNOR JAMESON 3 3 EMERGENCY DEPARTMEN SERVICES T VISIT MODERATE SEVERITY HOSPITAL [facility] - 3 3 [facility] OUTPATIEN INC T Emergency PAWEL Garcia MD (ER) 3 22:30 3 22:59 [facility] BRAULIO Monae 3 3 [facility] OUTPATIEN INC T EMERGENCY 81682 RADHA GARCIA 3 3 TRICE TRICE DEPARTMEN T VISIT HIGH/URGE NT SEVERITY EMERGENCY 79388 BRAULIO 3 3 [facility] DEPARTMEN INC T VISIT MODERATE SEVERITY HOSPITAL [facility] Monae 3 3 [facility] OUTPATIEN INC T OFFICE 00197 DIANA ORTIZ OUTPATIEN 3 3 [place] T VISIT 25 MINUTES OFFICE 46307 ANA M VIRAMONTES OUTPATIEN 2 2 FRANSICO FRANSICO T NEW 30 MINUTES EMERGENCY 71889 [facility] 2 2 EMERGENCY [place] DEPARTMEN PHYS PSC T VISIT HIGH/URGE NT SEVERITY OFFICE 71517 [facility] OUTPATIEN 2 2 OLIVIA OLIVIA T VISIT 15 MINUTES OFFICE 57534 SARAH SMITH ERNESTINE OUTPATIEN 2 2 T VISIT 15 MINUTES OFFICE 08048 [facility] OUTPATIEN 2 2 OLIVIA OLIVIA T VISIT 15 MINUTES HOSPITAL [facility] - 2 2 [facility] INPATIENT HOS[facility] OFFICE 89906 [facility] OUTPATIEN 2 2 OLIVIA OLIVIA T VISIT 15 MINUTES OFFICE 91658 [facility] OUTPATIEN 2 2 OLIVIA OLIVIA T VISIT 15 MINUTES OFFICE 11691 MARIA L Ko OUTPATIEN 2 2 T VISIT 15 MINUTES OFFICE 32808 [facility] OUTPATIEN 2 2 OLIVIA OLIVIA T VISIT 15 MINUTES OFFICE 05361 [facility] OUTPATIEN 1 1 OLIVIA OLIVIA T VISIT 15 MINUTES OFFICE 11437 [facility] OUTPATIEN 1 1 OLIVIA OLIVIA T VISIT 15 MINUTES OFFICE 78004 [facility] OUTPATIEN 1 1 OLIVIA OLIVIA T VISIT 15 MINUTES HOSPITAL [facility] - 1 1 [facility] OUTPATIEN HOSP T OFFICE 42731 SARAH SMITH ERNESTINE OUTPATIEN 1 1 T VISIT 15 MINUTES OFFICE 01933 AFUA BENITO OUTPATIEN 1 1 PIPE ORGAN MECHANIC APPRENTICE DEN T VISIT ASSOCIATE 15 S MINUTES OFFICE 61382 AFUA BENITO OUTPATIEN 1 1 PIPE ORGAN MECHANIC APPRENTICE DEN T VISIT ASSOCIATE 15 S MINUTES OFFICE 41026 AFUA BENITO OUTPATIEN 1 1 PIPE ORGAN MECHANIC APPRENTICE DEN T VISIT ASSOCIATE 15 S MINUTES OFFICE 31637 AFUA BENITO OUTPATIEN 1 1 PIPE ORGAN MECHANIC APPRENTICE DEN T VISIT ASSOCIATE 15 S MINUTES EMERGENCY 85217 MYNOR GARCIA 1 1 EMERGENCY [facility] DEPARTMEN SERVICES T VISIT HIGH/URGE NT SEVERITY HOSPITAL [facility] - 1 1 [facility] OUTPATIEN INC T EMERGENCY 51795 [facility] 1 1 [facility] DEPARTMEN INC T VISIT LIMITED/M INOR PROB OFFICE 87660 ALVAROLUNA KLINE NOHEMY OUTPATIEN 1 1 PIPE ORGAN MECHANIC APPRENTICE T VISIT ASSOCIATE 15 S MINUTES OFFICE 31574 AFUA RIZVI OUTPATIEN 1 1 PIPE ORGAN MECHANIC APPRENTICE OLIVIA T NEW 45 ASSOCIATE MINUTES S OFFICE 66220 THE BA[facility]IO OUTPATIEN 1 1 IMPLANT & DON T NEW 20 ORAL MINUTES SURGERY C OFFICE 07296 FLORESROSY FLORES OUTPATIEN 1 1 DON DON T VISIT 15 MINUTES OFFICE 55373 FLORES FLORES OUTPATIEN 0 0 DON DON T VISIT 15 MINUTES PERIODIC 65009 WOMEN'S ORTIZ, PREVENTIV 0 0 HEALTH REID J E MED EST CLINIC OF PATIENT 12[facility] EMERGENCY 54640 MYNOR GARCIA, 0 0 [facility] T VISIT MODERATE ASSOCIATE SEVERITY S EMERGENCY 90879 [facility] 0 0 [facility] DEPARTMEN INC T VISIT LOW/MODER SEVERITY HOSPITAL [facility] - 0 0 [facility] OUTPATIEN INC T HOSPITAL [facility] - 0 0 [facility] OUTPATIEN INC T EMERGENCY 78228 [facility] 0 0 [facility] DEPARTMEN INC T VISIT LOW/MODER SEVERITY EMERGENCY 28898 MYNOR GARCIA, DEPT 0 0 EMERGENCY TYRESE S VISIT SERVICES HIGH SEVERITY& ASSOCIATE THREAT S FUN OFFICE 38436 SANDRA FLORES OUTPATIEN 9 9 DON R DON R T VISIT 15 MINUTES OFFICE 16721 SANDRA FLORES OUTPATIEN 9 9 DON R DON R T VISIT 15 MINUTES OFFICE 39342 [facility] OUTPATIEN 9 9 [facility]ALTH CO HE[facility] T VISIT [facility] 10 BANK ACCT MINUTES OFFICE 18591 [facility] ORTIZTIM 9 9 HEALTH [facility] NEW 30 CLINIC OF MINUTES [facility] OFFICE 71910 [facility] BRA[facility] OUTPATIEN 9 9 HEALTH CO HE[facility] T VISIT [facility] 10 BANK ACCT MINUTES OFFICE 52865 [facility] OUTPATIEN 8 8 HEALTH CO [facility] T VISIT [facility] 10 BANK ACCT MINUTES OFFICE 79836 SANDRA FLORES OUTPATIEN 8 8 DON R DON R T VISIT 25 MINUTES OFFICE 23354 TIM [facility] 8 8 RAHUL Lewis T VISIT 15 MINUTES EMERGENCY 44868 [facility] 8 8 [facility] DEPARTMEN INC T VISIT LIMITED/M INOR [facility] H[facility]PITAL BRAUL[facility] - 8 8 [facility] OUTPATIEN INC T OFFICE 60018 SANDRA FLORES OUTPATIEN 8 8 DON R DON R T VISIT 15 MINUTES OFFICE 51503 TIM [facility] 8 8 RAHUL Lewis T VISIT 15 MINUTES OFFICE 55111 SANDRA FLORES OUTPATIEN 8 8 DON R DON R T VISIT 15 MINUTES HOSPITAL [facility] - 8 8 [facility] OUTPATIEN INC T EMERGENCY 25617 BRAULIO 8 8 [facility] INC T VISIT HIGH/URGE NT SEVERITY OFFICE 89032 TIM [facility] 8 8 RAHUL Lewis T VISIT 15 MINUTES OFFICE 09613 TIM [facility] 8 8 RAHUL Lewis T NEW 60 MINUTES OFFICE 22034 [facility]IO DUMONT 8 8 HEALTH [place] [facility] T VISIT [facility] 15 BANK ACCT MINUTES OFFICE 13571 [facility] 8 8 [facility] T VISIT [facility] 30182 SANDRA FLORES OUTPATIEN 8 8 DON R DON R T VISIT 15 MINUTES EMERGENCY 19627 BRA[facility]IO LEO, 8 8 [facility] T VISIT PROF SERV MODERATE SEVERITY HOSPITAL [facility] - 8 8 [facility] OUTPATIEN INC T OFFICE 87141 SANDRA FLORES OUTPATIEN 8 8 DON R DON R T VISIT 15 MINUTES OFFICE 67963 SANDRA FLORES OUTPATIEN 8 8 DON R DON R T VISIT 15 MINUTES
--- OUTSIDE RECORDS SUMMARY | 2017-05-03 10:11 | External Medical Summary Rpt ---
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 45923 SANDR[facility] FLORES OUTPATIEN 8 8 DON R DON R T VISIT 15 MINUTES EMERGENCY 82308 [facility] LEO, 8 8 [facility] T VISIT PROF SERV MODERATE SEVERITY HOSPITAL [facility] - 8 8 [facility] T OFFICE 67956 [facility] OUTPATIEN 8 8 DON R DON R T VISIT 15 MINUTES OFFICE 50681 [facility] FLOR[facility] OUTPATIEN 8 8 DON R DON R T VISIT 15 MINUTES
--- OUTSIDE RECORDS SUMMARY | 2017-05-03 10:16 | External Medical Summary Rpt ---
Author Author , ИВАН Ward ИВАН Address Unknown Phone [email or web address] Providers Care Sales Operations Director Name Role Phone LISA J, LISA J Unavailable Unavailable LISA J, LISA J Unavailable Unavailable ALFARIS MOH, ALFARIS Unavailable Unavailable MOH ALFARIS MOH, ALFARIS Unavailable Unavailable MOH FIERRO, NAVYA C, FIERRO, Unavailable Unavailable NAVYA C [facility], Unavailable Unavailable [facility] Un[facility], [facility] CHIPPS JIN & Unavailable Unavailable DUBILIER, CHIPPS JIN & DUBILIER ORTIZ CARLOTA, ORTIZ Unavailable Unavailable CARLOTA ORTIZ CARLOTA, ORTIZ Unavailable Unavailable CARLOTA REID ORTIZ, Unavailable Unavailable REID ORTIZ J [facility] Un[facility] Un[facility], [facility] Unavailable [facility], [facility] Unavailable Unavailable LAB, [facility] FEI TEAGAN, Unavailable Unavailable FEI TEAGAN NASIM ENAMORADO, Unavailable Unavailable NASIM ENAMORADO, GAMA COX Unavailable Unavailable [facility] Unavailable [place], [facility] [place] [facility] [place] Un[place] [facility], [facility] Unavailable Unavailable CALLIE TRICE, CALLIE Unavailable Unavailable TRICE CALLIE TRICE, CALLIE Unavailable Unavailable TRICE TYRESE LEDESMA S, Unavailable Unavailable TYRESE LEDESMA S HARPEL SUSY, HARPEL Unavailable Unavailable SUSY EVYPELENDY R, Unavailable Unavailable HARPELSUSYENDY R [facility] Unavailable Unavailable [place], [facility] Unavailable Unavailable INC, [facility] Unavailable Unavailable [facility], [facility] DOROTHY BETANCOURT, Unavailable Unavailable DOROTHY BETANCOURT ANA M FRANSICO, ANA M Unavailable Unavailable FRANSICO ANA M FRANSICO, ANA M Unavailable Unavailable [facility] Un[facility] Un[facility] Unavailable Unavailable [facility], [facility] Unavailable Unavailable [facility], [facility] Unavailable Unavailable [facility], [facility] Unavailable Unavailable [facility] OF AM, [facility] DIRECTOR OF CORPORATE SALES Unavailable Unavailable ASSOCIATES, [place] DIRECTOR OF CORPORATE SALES [facility]OCIATES [facility] Unavailable Unavailable SERVICES, [facility] CJ WESTFALL JR Unavailable Unavailable Garrison, CJ WESTFALL JR DON, Unavailable Unavailable BAUDILIO [facility] Un[facility] Unavailable [facility], [facility] CJ LOCKE, Unavailable Unavailable CJ LOCKE ELIUD KER, ELIUD KER Unavailable Unavailable SARAH RAN, SARAH RAN Unavailable Unavailable SARAH RAN, SARAH RAN Unavailable Unavailable [facility], [facility], [facility] Unavailable Unavailable LAB, [facility] Unavailable [facility]available LAB, [facility] PICKLESIMER JR JAIMEE, Unavailable Unavailable PICKLESIMER JR JAIMEE [id number], Unavailable Unavailable [id number] CHARLESCHTRISHA BATEMAN, Unavailable Unavailable RUSCHMAN FRANSICO JIGNA THORPE, JIGNA Unavailable Unavailable FLORENCE JEROME, Unavailable Unavailable FLORENCE RESENDIZ BELKYS OLIVIA, BELKYS Unavailable Unavailable OLIVIA BELKYS OLIVIA, BELKYS Unavailable Unavailable OLIVIA SCIFRES, CHAPARRITA M, Unavailable Unavailable SCIFRES, CHAPARRITA M YOHANNES DAGO, YOHANNES Unavailable Unavailable DAGO SOKAN BAB, SOKAN BAB Unavailable Unavailable [facility], [facility] FLORES DON, Unavailable Unavailable FLORES DON FLORES DON, Unavailable Unavailable FLORES DON FLORES, DON R, Unavailable Unavailable FLORES, DON R [facility] Unavailable Unavailable SURGERY C, [facility] Unavailable Unavailable #[id number], [facility] # Unavailable Unavailable [id number], [facility] # [id number] SHERYL YI Unavailable Unavailable SHERYL COLON, SHERYL COLON Unavailable Unavailable WHITE III OUSMANE, WHITE Unavailable Unavailable III ANSON LYONS, Unavailable Unavailable ANSON LEO Continuity of Care Document - 08-20-2007 through 2016 Problems Code Diagnosis DOS Provider Status 6828 CELLULITIS 12-18-2014 [facility]RI AND ABSCESS PHYSICIANS, OF OTHER [facility] SPECIFIED SITE 7823 EDEMA 02-07-2014 [facility] N EMERGENCY PHYSI 62430 UNSPECIFIED 02-07-2014 [facility] SITE OF N EMERGENCY ANKLE PHYSI SPRAIN AND STRAIN E9288 OTHER 02-07-2014 [facility] PHYSI 5225 PERIAPICAL 01-17-[address] [facility] ABSCESS WITHOUT SINUS 7842 SWELLING 01-17-2014 [facility] MASS OR LUMP IN HEAD AND NECK 6820 CELLULITIS 06-17-2013 CALLIE TRICE AND ABSCESS OF FACE 5990 URINARY 05-28-2013 SHERYL DARLENE TRACT INFECTION SITE NOT SPECIFIED 462 ACUTE 02-20-2013 FL[facility]ES PHARYNGITIS DON 4659 ACUTE URIS 02-20-2013 FLORES OF DON UNSPECIFIED SITE 82850 STOMATITIS 11-22-2012 [facility] MUCOSITIS SERVICES UNSPECIFIED 7295 PAIN IN 10-27-2012 FEI SOFT TEAGAN TISSUES OF LIMB 28623 SWELLING OF 10-27-2012 FEI LIMB TEAGAN 97024 OTHER 10-27-2012 FEI DISORDERS TEAGAN OF SOFT TISSUE 8449 SPRAIN&STRA 10-27-2012 [facility]IO IN OF MEM HOS[facility] UNSPECIFIED INC SITE OF KNEE&LEG E9068 OTHER 10-27-2012 FEI SPECIFIED TEAGAN INJURY CAUSED BY ANIMAL V692 PROBLEMS 10-21-2012 [facility] RELATED TO PHYSICIANS HIGH-RISK LA SEXUAL BEHAVIOR 6264 IRREGULAR 10-20-2012 DIANA CARLOTA MENSTRUAL CYCLE V2542 SURVEILLANC 10-20-2012 DIANA CARLOTA E PREV PRSC INTRAUTERN CNTRACPT DEVC 7267 UNSPECIFIED 03-17-2012 ANA M FRANSICO BACKACHE V065 NEED 03-17-2012 ANA M FRANSICO PROPHYLACTI C VACCINATION W/TETANUS-D IPHTH V066 NEED PROPH 03-17-2012 ANA M FRANSICO VACCINATION W/STREP PNEUMONE&[place] U [address]108 ONYCHIA AND 03-11-2012 [facility] PARONYCHIA EMERGENCY OF TOE PHYS PSC 6262 EXCESSIVE 10-17-2011 SARAH RAN OR FREQUENT MENSTRUATIO N 65044 MATERNAL 10-17-2011 SARAH RAN MENTAL D/O COND/COMPLI CATION V242 ROUTINE 10-17-2011 PATHOLOGY & CYTOLOGY FOLLOW-UP LAB V745 SCREENING 10-17-2011 PATHOLOGY & EXAMINATION CYTOLOGY FOR LAB VENEREAL DISEASE 6159 UNSPECIFIED 08-26-2011 [facility] DISEASE OF UTERUS 52940 ABN MAT 08-26-2011 [facility] GLUCOSE JIN & TOLERANCE DUBILIER COMPL PG CB/PP UNS EOC 10621 ABNORMAL 08-26-2011 [facility] MATERNAL [facility] GLU[facility]SE [facility] TOLERANCE W/DELIVERY 92744 TOBACCO USE 08-26-2011 [facility] D/O COMP [facility] PG HOSP CHILDBIRTH/ PP DELIVERED 31377 08-26-2011 YOHANNES DAGO DISTRESS AFFECT MANAGEMENT MOTH DELIVERED 33970 ABN FETL 08-26-2011 [facility] HRT [facility] RATE/RHYTHM HOSP DELIV W/WO ANTPRTM COND 61913 PUERPERAL 08-26-2011 [facility] ENDOMETRITI [facility] S DELIVERED HOSP W/MEN PP COMP V270 OUTCOME OF 08-26-2011 [facility] DELIVERY [facility] SINGLE HOSP LIVEBORN 55659 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 ANTEPARTUM 35758 ABNORMAL 08-22-2011 [facility] MATERNAL GLUCOSE TOLERANCE ANTEPARTUM 33312 TOB USE D/O 08-22-2011 [facility] BAKER COMP PG /PP ANTEPARTM COND/COMP 60177 POOR 08-22-2011 [facility] GROWTH MGMT MOTH ANTPRTM COND/COMP 95311 THREATENED 08-15-2011 [facility] PREMATURE LABOR ANTEPARTUM 52861 EDEMA OR 2011 MARIA L Ko EXCESSIVE WEIGHT GAIN ANTEPARTUM V221 SUPERVISION 2011 MEDICAL OF OTHER DIAGNOSTIC [facility] V286 SCREENING 2011 MEDICAL OF DIAGNOSTIC STREPTOCOCC LAB [facility] [place] [place] [address] DIAB W/O 08-01-2011 [facility] BAKER COMP TYPE II/UNS NOT STATED UNCNTRL 57750 MATERNAL 08-01-2011 [facility] BAKER DIABETES MELLITUS ANTEPARTUM V5867 LONG-TERM 08-01-2011 [facility]AK[facility] USE OF INSULIN 33212 DECR 07-18-2011 [facility] MOVMNTS MGMT MOTH ANTPRTM COND/COMP 97889 INFECTIONS 07-11-2011 [facility] BAKER OF GENITOURINA RY TRACT ANTEPARTUM V653 DIETARY 06-28-2011 [facility] SURVEILLANC [facility] E AND HOSP COUNSELING V851 BODY MASS 06-28-2011 [facility] INDEX [facility] BETWEEN HOSP - ADULT 07637 LATE 05-16-2011 [facility] VOMITING OF DIRECTOR OF CORPORATE SALES ASSOCIATES ANTEPARTUM V2881 ENCOUNTER 04-18-2011 [facility] FOR DIRECTOR OF CORPORATE SALES ANATOMIC ASSOCIATES SURVEY V220 SUPERVISION 03-21-2011 LAB COR [place] [address] UNSPECIFIED 02-13-2011 [facility] DENTAL [facility] CARIES INC 5259 UNSPECIFIED 02-13-2011 [facility] DISORDER EMERGENCY TEETH&SUPPO SERVICES RTING STRUCTURES 82389 OTH CURRENT 02-13-2011 [facility] KIRKPATRICK EMERGENCY CLASSIFIABL SERVICES E ELSW ANTPRTM 6164 OTHER 02-12-2011 [place] ABSCESS OF DIRECTOR OF CORPORATE SALES VULVA ASSOCIATES 6238 OTHER 02-12-2011 LAB D[facility]LYN SPECIFIED AMERIC NONINFLAMMA HOLDING TORY DISORDER VAGINA 6235 LEUKORRHEA 01-22-2011 PATHOLOGY & NOT CYTOLOGY SPECIFIED LAB INFECTIVE 88733 MILD 01-22-2011 [place] HYPEREMESIS DIRECTOR OF CORPORATE SALES GRAVIDARUM ASSOCIATES ANTEPARTUM 5206 DISTURBANCE 10-16-2010 THE IMPLANT S IN TOOTH & ORAL ERUPTION SURGERY C V7284 UNSPECIFIED 10-16-2010 [facility] PRE-OPERATI LA VE EXAMINATION 01197 REFLUX 09-11-2010 [facility] ESOPHAGITIS DON 7821 RASH AND 09-11-2010 FLOR[facility] OTHER DON NONSPECIFIC SKIN ERUPTION 33238 OTHER 03-07-2010 [facility] SPECIFIED DON DISORDERS OF URINARY TRACT 7881 DYSURIA 03-07-2010 FLORES DON 3670 HYPERMETROP 02-24-2010 NE IA VISION V259 UNSPECIFIED 02-17-2010 [facility] PHYSICIAN CONTRACEPTI GROUP PCC VE MANAGEMENT 6160 CERVICITIS 01-17-2010 PATHOLOGY & AND CYTOLOGY ENDOCERVICI LAB TIS V7231 ROUTINE 01-17-2010 [facility] CLINIC OF EXAMINATION SANKET [facility] 19257 SHORTNESS 12-20-2009 [facility] MEDICAL IMAGING ASSOCIATES 9948 ELECTROCUTI 12-20-2009 BRAULIO ON&NONFATAL [facility] ELECTRIC PROF SERV CURRENT 4618 OTHER ACUTE 06-27-2009 FLORES, [place]INUSIT[place] R [address] ABDOMINAL 02-07-2009 FLORES, PAIN RIGHT DON R LOWER QUADRANT V069 NEED PROPH 02-07-2009 [facility]/CO VACCINATION HEALTH W/UNSPEC [facility] COMB BANK ACCT VACCINE 7061 OTHER ACNE 10-01-2008 [facility] V2549 SURVEILLANC 10-01-2008 [facility] 64094 HEMATURIA 07-07-2008 FLORES, UNSPECIFIED DON R 7880 RENAL COLIC 07-07-2008 FLORES, DON R V1581 PERS HX 05-06-2008 MIKHAIL NONCOMPLIAN NATIONAL CE W/MED [place] CORPORATION PRS HAZARDS HLTH 9174 FOOT&TOE 04-27-2008 FLORES, INSECT BITE DON R NONVENOMOUS W/O MENTION INF V2543 SURVEILLANC 03-04-2008 ENDY Lewis E PREV PRSC RAHUL CHAVEZ IMPL SUBDERMAL CONTRACEPT 6929 CONTACT 02-11-2008 FLORES, DERMATITIS& DON R OTHER ECZEMA DUE UNSPEC CAUSE 7011 ACQUIRED 02-11-2008 FLORES, [place] [address] OTHER ACUTE 02-10-2008 [facility] POSTOPERATI INC VE PAIN 632 MISSED 02-08-2008 PATHOLOGY & CYTOLOGY LAB 04059 INCOMPLETE 02-08-2008 [place] SPONTANEOUS MEDICAL AB WITHOUT IMAGING MENTION ASSOCIATES COMP 63281 OTHER 01-13-2008 ENDY Lewis SPECIFED RAHUL CHAVEZ COMPLICATIO N ANTEPARTUM 6268 OTH D/O 01-08-2008 ENDY Lewis MENSTRUATIO RAHUL [...] OTITIS DON R MEDIA 6253 DYSMENORRHE 11-04-2007 [facility] PROF SERV 6259 UNSPEC 11-04-2007 FLORES, SYMPTOM DON R ASSOC W/FEMALE GENITAL ORGANS 25472 ABDOMINAL 11-04-2007 [place] PAIN, MEDICAL UNSPECIFIED IMAGING SITE ASSOCIATES 25425 CHEST PAIN 08-25-2007 FLORES, UNSPECIFIED DON R Medications Na ND Rx Da Fi Fi Am Da Di Ph RX Ph St me C No te ll ll ou ys ag ar # ys at rm s nt no ma ic us Or Da si cy ia de te s n re d DC 37 02 10 [address] Ac [place] 00 -1 -[address] 23 EP ti OS 00 4- 5- 00 SI 10 HE ve EC 45 20 20 DE NS 50 11 11 OT 2 PH DO C AR N 20 MA R .6 CY MG OF TA CY BL NT ET HI AN A DC 37 02 09 [address] Ac IL 00 -1 -[address] 23 EP ti OS 00 4 9 SI 10 HE ve EC 45 20 20 DE NS 50 11 11 OT 2 PH DO C AR N 20 MA R .6 CY MG OF TA CY BL NT ET HI AN A DC 37 02 07 5 [address] Ac IL 00 -1 -[address] 23 EP ti OS 00 4 SI 10 HE ve EC 45 20 20 DE NS 50 11 11 OT 2 PH DO C AR N 20 MA R .6 CY MG OF TA CY BL NT ET HI AN A DC 37 02 05 5 [address] Ac IL 00 -1 -[address] 23 EP ti OS 00 4 8 SI 10 HE ve EC 45 20 20 DE NS 50 11 11 OT 2 PH DO C AR N 20 MA R .6 CY MG OF TA CY BL NT ET HI AN A DC 37 02 04 [address] Ac IL 00 -1 -[address] 23 EP ti OS 00 4 5 SI 10 HE ve EC 45 [...] .0 ST 75 SH ti AL 33 8 8 SI 81 ve EX 14 20 20 DE NE IN 50 11 11 IL 1 PH C 25 AR 0 MA MG CY CA OF PS UL CY E NT HI AN A IB 53 03 03 0 [address] Ac UP 74 -1 -[address] 75 EP ti RO 60 8- 8- 00 SI 86 HE ve FE 46 20 20 DE NS N 50 11 11 60 5 PH DO 0 AR N MG MA R CY TA BL OF ET CY NT HI AN A DC 37 02 02 5 30 30 EA [...] .0 IN 03 AR ti ON 00 6- 0- 00 IC 14 KE ve 48 20 20 FE 21 10 10 PH DE 4 AR RE TA MA K BL CY J ET LL C FE 00 07 08 5 28 28 CL 22 CL Ac MC 43 -2 -2 .0 IN 03 AR ti ON 6- 3 00 IC 14 KE ve 48 20 20 FE 21 10 10 PH DE 4 AR RE TA MA K BL CY J ET LL C CI 00 08 08 0 [address] Ac DC 17 -1 -[address] 65 EP [...] -2 .0 IN 03 AR ti ON 6 IC 14 KE ve 48 20 20 FE 21 10 10 PH DE 4 AR RE TA MA K BL CY J ET LL C FE 00 05 06 1 28 28 CL 21 CL Ac MC 43 -2 -2 .0 IN 70 AR ti ON 00 8 00 IC 94 KE ve 48 20 20 FE 21 10 10 PH DE 4 AR RE TA MA K BL CY J ET LL C 00 06 06 0 10 2 WA 44 RU Ac 40 -1 -1 .0 L- 86 SH ti 60 7- 7- 00 MA 34 ve 35 20 20 RT 3 NE 90 10 10 IL 5 PH C AR MA CY # 10 05 91 00 06 06 0 8. 2 WA 44 GA Ac 40 -1 -1 00 L- 86 IN ti 60 2- 3- 0 MA 25 EY ve 35 20 20 RT 7 70 10 10 IA 5 PH CH AR AE MA L CY S # 10 05 91 CE 68 06 06 0 21 7 WA 70 GA Ac PH 18 -1 -1 .0 L- 74 IN ti AL 00 3 00 MA 51 EY ve EX 12 20 20 RT 9 IN 20 10 10 IA 1 PH CH 50 AR AE 0 [...] 6. [address] Ac IT 09 -3 -[address] 35 EP ti HR [...] .0 ST 37 EP ti LI 80 7 00 SI 42 HE ve CE 46 [...] -0 .0 IN 93 AR ti ON 00 1- 3 IC 19 KE ve 48 20 20 FE 21 09 09 PH DE 4 AR RE TA MA K BL CY J ET FE 00 08 11 02 28 28 CL 19 CL Ac MC 43 -2 -0 .0 IN 93 AR ti ON 00 IC 19 KE ve 48 20 20 FE 21 09 09 PH DE 4 AR RE TA MA K BL CY J ET FE 00 08 10 01 28 28 CL 19 CL Ac MC 43 -2 -0 .0 IN 93 AR ti ON 00 8 IC 19 KE ve 48 20 20 FE 21 09 09 PH DE 4 AR RE TA MA K BL CY J ET FE 00 08 08 00 28 28 CL 19 CL Ac MC 43 -2 -2 .0 IN 93 AR ti ON 00 1- 7 IC 19 KE ve 48 20 20 FE 21 09 09 PH DE 4 AR RE TA MA K BL CY J ET FE 00 04 07 03 28 28 CL 19 CL Ac MC 43 -0 -3 .0 IN 13 AR ti ON 00 7- 0- IC 81 KE ve 48 20 20 FE 21 09 09 PH DE 4 AR RE TA MA K BL CY J ET CI 00 07 07 [address] Ac DC 17 -1 -3 .0 TE 15 EP ti OF 25 3- 0- 00 36 HE ve LO 31 [...] 25 CL 19 HI Ac TA 06 2 -3 00 IN 76 NE ti NO 50 [...] -2 .0 IN 13 AR ti ON IC [...] 00 60 30 WA 70 CL Ac DC 09 -0 -1 .0 L- 11 AR [...] 20 20 RT 9 00 08 08 IA 1 PH CH AR AE MA L CY S #5 91 00 07 08 00 8. 2 WA 44 GA Ac 09 -1 -0 00 L- 69 IN ti 30 5- 1- 0 MA 53 EY ve 89 20 20 RT 5 00 08 08 IA 5 PH CH AR AE MA L [...] 00 20 10 CL 16 No Ac DC 11 -2 -2 .0 IN 32 t [...] ACYW ER BANK -135 ACCT SUBQ USE Procedures Procedure DOS Code Location Performer Comment INCISION 42274 CALLIE LEDESMA & 3 TRICE TRICE DRAINAGE ABSCESS SIMPLE/SI NGLE IAADIADOO 45719 SANDRA FLORES 3 DON DON STREPTOCO CCUS GROUP A CRTCHS E0114 [facility]ER[facility] [employer] UNDARM 3 OTH THAN WOOD PAIR PAD TIP&HNDGR IP RADIOLOGI 19467 [facility] Gonzalez 3 [facility] EXAMINATI INC INC ON TIBIA & FIBULA 2 VIEWS RADEX 40625 [facility] RAMSEY ANKLE 3 [facility] COMPLETE INC INC MINIMUM 3 VIEWS APPLICATI 89130 [facility] RAMSEY ON LONG 3 [facility] LEG INC INC SPLINT THIGH ANKLE/TOE S CUL BACT 61585 COMBINED COMBINED XCPT 3 PHYSICIAN PHYSICIAN URINE S LA S LA BLOOD/STO OL AEROBIC ISOL ANTIBODY 69755 COMBINED COMBINED CHLAMYDIA 3 PHYSICIAN PHYSICIAN S LA S LA HEPATITIS 67448 [facility] RAMSE[facility] B CORE 3 [facility] ANTIBODY INC INC HBCAB TOTAL ANTIBODY 74508 [facility] RAMSEY HERPES 3 [facility] SMPLX INC INC TYPE 1 ANTIBODY 43492 B[facility] RAMSEY VIRUS NOT 3 [facility] INC INC ELSEWHERE SPECIFIFE D HEPATITIS 91112 [facility] RAMSEY C 3 [facility] ANTIBODY INC INC HEPATITIS 29468 B[facility] RAMSEY A 3 [facility] ANTIBODY INC INC HAAB HEPATITIS 27487 B[facility]ULIO Ayala SURF 3 [facility] [place] [address] BRAULIO RAMSEY HEPATITIS 3 [facility] B INC INC SURFACE ANTIGEN INFLUENZA 23717 ANA M ANA M VACC 2 FRANSICO FRANSICO IIV3 SPLIT VIRUS PRSRV FREE ID INCISION 22340 [facility] RUSCHMAN & 2 EMERGENCY FRANSICO DRAINAGE PHYS PSC ABSCESS SIMPLE/SI NGLE IADNA 67403 PATHOLOGY PICKLESIM CHLAMYDIA 2 & ER JR JAIMEE CYTOLOGY TRACHOMAT LAB IS AMPLIFIED PROBE TQ IADNA 79402 PATHOLOGY PICKLESIM NEISSERIA 2 & ER JR JAIMEE CYTOLOGY GONORRHOE LAB AE AMPLIFIED PROBE TQ CYTP C/V 23919 PATHOLOGY PICKLESIM AUTO THIN 2 & ER JR JAIMEE LYR CYTOLOGY PREPJ SCR LAB MNL RESCR PHYS LOW 741 [facility] CERVICAL 2 [facility] SECTION 16212 [facility] DELIVERY 2 OLIVIA OLIVIA ONLY ANESTHESI 99844 YOHANNES WHITE III A 2 DAGO [place] [address] [facility] GAMA KENNY SURG 2 JIN & PATHOLOGY DUBILIER GROSS&TRICE ROSCOPIC EXAM US PREG 83133 [facility] UTERUS 2 OLIVIA OLIVIA REAL TIME F/U TRNSABDL PER FETUS IADNA 01338 MEDICAL MEDICAL STREPTOCO 2 DIAGNOSTI DIAGNOSTI CCUS C LAB LLC C LAB LLC GROUP B AMPLIFIED [place] T[place] US PREG 67998 [facility] BELKYS UTERUS 1 OLIVIA OLIVIA REAL TIME F/U TRNSABDL PER FETUS SMR PRIM 22138 [facility]KYS SRC WET 1 OLIVIA OLIVIA MOUNT NFCT AGT DIAB G0109 [facility] SELF-MGMT 1 [facility] TRN SRVC HOSP HOSP GROUP SESSION PER 30 MIN GLUCOSE 52284 LAB D[facility]N LAB DARLYN TOLERANCE 1 AMERIC AMERIC EA ADDL HOLDINGS HOLDING BEYOND 3 SPECIMENS GLUCOSE 57132 LAB [facility] LAB D[facility]LYN TOLERANCE 1 AMERIC AMERIC TEST GTT HOLDINGS HOLDING 3 SPECIMENS BLOOD 55529 LAB D[facility]N LAB DARLYN COUNT 1 AMERIC AMERIC COMPLETE HOLDINGS HOLDING AUTOMATED GLUCOSE 21462 LAB [facility] LAB DARLYN POST 1 AMERIC AMERIC GLUCOSE HOLDINGS HOLDING DOSE ANTIBODY 22038 LAB D[facility]N LAB DARLYN SCREEN 1 AMERIC AMERIC RBC EACH HOLDINGS HOLDING SERUM TECHNIQUE US PREG 23622 [place] [facility] UTERUS 1 DIRECTOR OF CORPORATE SALES OLIVIA AFTER ASSOCIATE [place] [address] LAB COR LAB COR 1 YSAB[place] [address] LAB COR LAB COR ESTRIOL 1 YSABEL YSABEL HOLDING HOLDING LA LA ALPHA-FET 11855 LAB COR LAB COR OPROTEIN 1 YSABEL YSABEL SERUM HOLDING HOLDING [place] GONADOTRO 33358 LAB COR LAB COR PIN 1 YSABEL YSABEL CHORIONIC HOLDING HOLDING LA LA QUANTITAT LUIZ US PREG 37173 [place] [facility] UTERUS 1 DIRECTOR OF CORPORATE SALES OLIVIA REAL TIME ASSOCIATE W/[place] [address] LAB D[facility]N LAB DARLYN NON-IMMUN 1 AMERIC AMERIC OLOGIC HOLDING HOLDING OTH/THN CYTOPATHI C CYTP C/V 03074 PATHOLOGY PATHOLOGY AUTO THIN 1 & & LYR CYTOLOGY CYTOLOGY PREPJ SCR LAB LAB MNL RESCR PHYS US PREG 86387 [place] [facility] UTERUS 1 DIRECTOR OF CORPORATE SALES OLIVIA REAL TIME ASSOCIATE W/IMAGE S DCMTN TRANSVAG DRUG SCR G0434 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 NOT 1 Y Y CHROMATOG CORPORATI CORPORATI RAPHIC; ON OF AM ON OF AM ANY NUMBER PT ENC IADNA 85077 PATHOLOGY PATHOLOGY CHLAMYDIA 1 & & CYTOLOGY CYTOLOGY TRACHOMAT LAB LAB IS AMPLIFIED PROBE TQ IADNA 21540 PATHOLOGY PATHOLOGY NEISSERIA 1 & & CYTOLOGY CYTOLOGY GONORRHOE LAB LAB AE AMPLIFIED PROBE TQ ORTHOPANT 04704 THE BAUDILIO OGRAM 1 IMPLANT & DON ORAL SURGERY C GONADOTRO 65865 COMBINED COMBINED PIN 1 PHYSICIAN PHYSICIAN GRIFFIN S LA S LA QUANTITAT LUIZ OPHTH 71664 NE GONG [facility]ICAL 0 VISION CHAPARRITA M XM&EVAL COMPRHNSV ESTAB PT 1/> REMOVAL 40586 [facility] HARPEL IMPLANTAB 0 PHYSICIAN SUSY CONTRERAS GROUP CONTRACEP PCC TIVE CAPSULES IADNA 88572 PATHOLOGY PATHOLOGY NEISSERIA 0 & & CYTOLOGY CYTOLOGY GONORRHOE LAB LAB AE AMPLIFIED PROBE TQ IADNA 62490 PATHOLOGY PATHOLOGY CHLAMYDIA 0 & & CYTOLOGY CYTOLOGY TRACHOMAT LAB LAB IS AMPLIFIED PROBE TQ CYTP C/V 47583 PATHOLOGY PATHOLOGY AUTO THIN 0 & & LYR CYTOLOGY CYTOLOGY PREPJ SCR LAB LAB MNL RESCR PHYS ECG 49988 BRAULIO [place] ROUTINE 0 [facility] W/LEAST PROF SERV 12 LDS I&R ONLY ECG 36788 BRAULIO BRAULIO ROUTINE 0 [facility] ECG INC INC W/LEAST 12 LDS TRCG ONLY W/O I&R RADIOLOGI 70596 [facility] ENAMORADO EXAM 0 MEDICAL NASIM CHEST 2 IMAGING VIEWS ASSOCIATE FRONTAL&L S ATERAL OPHTH 65637 NE [facility] 9 VISION CHAPARRITA M XM&EVAL COMPRHNSV ESTAB PT 1/> IM ADM 10622 [facility] B[facility] PRQ ID 9 [facility] HEALTH SUBQ/IM [facility] NJXS 1 BANK ACCT VACCINE MPSV4 63387 [facility]/CO BRAULIO VACCINE 9 HEALTH CO HEALTH GROUPS [facility] ACYW-135 BANK ACCT SUBQ USE IM ADM 54079 [facility]/CO BRAULIO PRQ ID [address] [facility] HEALTH SUBQ/IM [facility] NJXS 1 BANK ACCT VACCINE IM ADM 54418 DHS/CO BRAULIO PRQ ID [address] [facility] HEALTH SUBQ/IM [facility] NJXS 1 BANK ACCT VACCINE URINE 00690 [facility] RAMSEY 8 [facility] TEST INC INC VISUAL COLOR CMPRSN METHS URNLS DIP 88712 [facility] RAMSEY 8 [facility] STICK/TAB INC INC LET REAGENT AUTO MICROSCOP Y CULTURE 85401 [facility]IO RAMSEY BACTERIAL 8 [facility] INC INC QUANTTATI VE COLONY COUNT URINE BLOOD 64970 [facility]IO RAMSEY COUNT 8 [facility] COMPLETE INC INC AUTO&AUTO DIFRNTL WBC ANESTHESI 32687 Grecia DOMINGUEZ 8 ANESTH CJ Ji INCOMPLET OF THE E/MISSED [place] US PREG 65060 [facility] FEI, UTERUS 8 MEDICAL NASIM REAL TIME IMAGING W/IMAGE [place]OCI[place] [address] PATHOLOGY PATHOLOGY SURG 8 & & PATHOLOGY CYTOLOGY CYTOLOGY LAB LAB GROSS&TRICE ROSCOPIC EXAM US PREG 45678 ENDY R HARPEL, UTERUS 8 MARIMARL MD ENDY Lewis REAL TIME W/IMAGE DCMTN TRANSVAG IADNA 27383 [facility] [place], CHLAMY[place] 8 [place] DOROTHY D TRACHOMAT IS AMPLIFIED PROBE TQ CYTP 73565 [facility] [place], CERV/VAG 8 [place] DOROT[place] D AUTO THIN LAYER PREP MNL SCREEN IADNA 61448 [facility] [place], HERPES 8 [place] DOR[place] D SOMPLX VIRUS AMPLIFIED PROBE TQ IADNA 53793 [facility] [place], [place]IA 8 [place] DOROTHY D GONORRHOE AE AMPLIFIED PROBE TQ URINE 48884 DHS/CO BRAULIO [address] [facility] VISUAL BANK ACCT COLOR CMPRSN METHS GONADOTRO 55845 COMBINED COMBINED PIN 8 [facility]IC[facility] PHYSICIAN [facility]ORION[facility] S LAB S LAB QUANTITAT LUIZ URINE 28551 [facility] TEST INC INC VISUAL COLOR CMPRSN METHS BASIC 15573 [facility] METABOLIC 8 [facility] PANEL INC INC CALCIUM TOTAL CT PELVIS 18646 PAULO FEI, W/O 8 MEDICAL NASIM CONTRAST IMAGING MATERIAL ASSOCIATE S 3D 37691 [facility] RENDERING 8 [facility] INC INC W/INTERP& POSTPROC DIFF WORK STATION CULTURE 44754 [facility] BACTERIAL 8 [facility] INC [place] [address] PAULO FEI, ABDOMEN 8 MEDICAL NASIM W/O IMAGING CONTRAST ASSOCIATE MATERIAL S URNLS DIP 60776 [facility] 8 [facility] STICK/TAB INC INC LET REAGENT AUTO MICROSCOP Y BLOOD 08508 [facility] COUNT 8 [facility] COMPLETE INC INC AUTO&AUTO DIFRNTL WBC RADEX 92466 SANDRA, SANDRA, RIBArpit UNI 8 DON R DON R W/POSTERO ANT CH MINIMUM 3 VIEWS Encounters Encounter Start End Date Code Location Performer Type Date EMERGENCY 53500 BRI LEDESMA 5 5 PHYSICIAN TRICE [facility] MODERATE SEVERITY EMERGENCY [facility]60 [facility] 4 4 [facility] [place] DEPARTMEN EMERGENCY T VISIT PHYSI MODERATE SEVERITY EMERGENCY 40443 [facility] 4 4 [facility] DEPARTMEN T VISIT MODERATE SEVERITY EMERGENCY 05904 CALLIE LEDESMA 3 3 TRICE TRICE DEPARTMEN T VISIT HIGH/URGE NT SEVERITY EMERGENCY 41460 SHERYL COLON 3 3 DEPARTMEN T VISIT MODERATE SEVERITY OFFICE 86737 SANDRA FLORES OUTPATIEN 3 3 DON DON T VISIT 15 MINUTES EMERGENCY 22489 MYNOR JAMESON 3 3 EMERGENCY DEPARTMEN SERVICES T VISIT MODERATE SEVERITY EMERGENCY 47059 [facility] 3 3 [facility] VISIT LOW/MODER SEVERITY [facility] T EMERGENCY 78405 [facility] 3 3 [facility] DEPARTMEN INC T VISIT MODERATE SEVERITY [facility] - 3 3 [facility] T EMERGENCY 90783 CALLIE CALLIE 3 3 [facility] DEPARTMEN T VISIT HIGH/URGE NT SEVERITY [facility]OSPITAL [facility] - 3 3 [facility] T OFFICE 17222 ORTIZ DIANA OUTPATIEN 3 3 CARLOTA CARLOTA T VISIT 25 MINUTES OFFICE 65965 ANA M VIRAMONTES OUTPATIEN 2 2 FRANSICO FRANSICO T NEW 30 MINUTES EMERGENCY 60115 [facility] 2 2 EMERGENCY FRANSICO DEPARTMEN PHYS PSC T VISIT HIGH/URGE NT SEVERITY OFFICE 64207 [facility] BELKYS OUTPATIEN 2 2 OLIVIA OLIVIA T VISIT 15 MINUTES OFFICE 59061 SARAH SINHA OUTPATIEN 2 2 T VISIT 15 MINUTES OFFICE 84314 [facility] 2 2 OLIVIA OLIVIA T VISIT 15 MINUTES [facility]OSP[facility] OFFICE 36857 [facility] OUTPATIEN 2 2 OLIVIA OLIVIA T VISIT 15 MINUTES OFFICE 38851 [facility] OUTPATIEN 2 2 OLIVIA OLIVIA T VISIT 15 MINUTES OFFICE 34730 MARIA L Ko OUTPATIEN 2 2 T VISIT 15 MINUTES OFFICE 27439 [facility] OUTPATIEN 2 2 OLIVIA OLIVIA T VISIT 15 MINUTES OFFICE 47194 [facility]KYS OUTPATIEN 1 1 OLIVIA OLIVIA T VISIT 15 MINUTES OFFICE 07468 [facility] OUTPATIEN 1 1 OLIVIA OLIVIA T VISIT 15 MINUTES OFFICE 39200 [facility] OUTPATIEN 1 1 OLIVIA OLIVIA T VISIT 15 MINUTES [facility]OSP[facility] - [facility] 1 [facility] T OFFICE 77934 SARAH SMITH RAN OUTPATIEN 1 1 T VISIT 15 MINUTES OFFICE 51929 AFUA BENITO OUTPATIEN 1 1 DIRECTOR OF CORPORATE SALES DEN T VISIT ASSOCIATE 15 S MINUTES OFFICE 48042 AFUA BENITO OUTPATIEN 1 1 DIRECTOR OF CORPORATE SALES DEN T VISIT ASSOCIATE 15 S MINUTES OFFICE 12264 AFUA BENITO OUTPATIEN 1 1 DIRECTOR OF CORPORATE SALES DEN T VISIT ASSOCIATE 15 S MINUTES OFFICE 43979 AFUA BENITO OUTPATIEN 1 1 DIRECTOR OF CORPORATE SALES DEN T VISIT ASSOCIATE 15 S MINUTES EMERGENCY 92687 [facility] 1 1 [facility] DEPARTMEN INC T VISIT LIMITED/M INOR [facility] - 1 1 [facility] OUTPATIEN INC T EMERGENCY 38374 MYNOR LEDESMA 1 1 EMERGENCY TRICE DEPARTMEN SERVICES T VISIT HIGH/URGE NT SEVERITY OFFICE 51304 AFUA SLATER OUTPATIEN 1 1 DIRECTOR OF [employer]POR[employer] SALES T VISIT ASSOCIATE 15 S MINUTES OFFICE 64458 AFUA RIZVI OUTPATIEN 1 1 DIRECTOR OF CORPORATE SALES OLIVIA T NEW 45 ASSOCIATE MINUTES S OFFICE 58835 THE BA[facility] OUTPATIEN 1 1 IMPLANT & DON T NEW 20 ORAL MINUTES SURGERY C OFFICE 79928 SANDRA FLORES OUTPATIEN 1 1 DON DON T VISIT 15 MINUTES OFFICE 14321 SANDRA FLORES OUTPATIEN 0 0 DON DON T VISIT 15 MINUTES PERIODIC 77461 WOMEN'S ORTIZ, PREVENTIV 0 0 HEALTH REID J E MED EST [facility] OF PATIENT [facility] EMERGENCY 50718 [facility] 0 0 [facility] DEPARTMEN INC T VISIT LOW/MODER SEVERITY [facility] - 0 0 [facility] OUTPAT[facility] INC T EMERGENCY 68934 MYNOR LEDESMA, 0 0 EMERGENCY [facility] DEPARTMEN SERVICES T VISIT MODERATE ASSOCIATE SEVERITY S EMERGENCY 31571 MYNOR LEDESMA, DEPT 0 0 EMERGENCY [facility] VISIT SERVICES HIGH SEVERITY& ASSOCIATE THREAT S [facility] - 0 0 [facility] OUTPATIEN INC T EMERGENCY 30512 [facility] 0 0 [facility] DEPARTMEN INC T VISIT LOW/MODER SEVERITY OFFICE 09112 SANDRA FLORES OUTPATIEN 9 9 DON R DON R T VISIT 15 MINUTES OFFICE 52964 SANDRA FLORES OUTPATIEN 9 9 DON R DON R T VISIT 15 MINUTES OFFICE 81440 [facility] MISHAEN 9 9 [facility] 10 BANK ACCT MINUTES OFFICE 27742 [facility] ORTIZTIM P[facility] 9 9 HEALTH REID J T 30 [facility] OFFICE 64366 [facility] OUTPATIEN 9 9 [facility] 10 BANK ACCT MINUTES OFFICE 91338 [facility] OUTPATIEN 8 8 [facility] 10 BANK ACCT MINUTES OFFICE 91102 SANDRA FLORES OUTPATIEN 8 8 DON R DON R T VISIT 25 MINUTES OFFICE 86158 TIM B[place] 8 8 RAHUL Lewis T VISIT 15 MINUTES HOSPITAL [facility] - 8 8 [facility] OUTPATIEN INC T EMERGENCY 75936 [facility] 8 8 [facility] DEPARTMEN INC T VISIT LIMITED/M INOR PROB OFFICE 16078 SANDRA FLORES OUTPATIEN 8 8 DON R DON R T VISIT 15 MINUTES OFFICE 75995 TIM B[place] 8 8 RAHUL SCHUMACHER R T VISIT 15 MINUTES OFFICE 27904 SANDRA FLORES OUTPATIEN 8 8 DON R DON R T VISIT 15 MINUTES EMERGENCY 11051 [facility] 8 8 [facility] DEPARTMEN INC T VISIT HIGH/URGE NT SEVERITY [facility]OSPITAL [facility] - 8 8 [facility] OUT[facility] T OFFICE 65530 TIM [facility] 8 8 RAHUL SCHUMACHER R T VISIT 15 MINUTES OFFICE 14128 ENDY KAY OUTPATIEN 8 8 RAHUL SCHUMACHER R T NEW 60 MINUTES OFFICE 27326 [facility] 15 BANK ACCT MINUTES OFFICE 58969 [facility]APTIM 8 8 [facility] T VISIT CLINIC OF 15 MINUTES [facility] - 8 8 [facility] OUTPATIEN INC T OFFICE 97571 SANDRA FLORES OUTPATIEN 8 8 DON R DON R T VISIT 15 MINUTES EMERGENCY 65654 [facility] LEO, 8 8 [facility] T VISIT PROF SERV MODERATE SEVERITY OFFICE 38749 SANDRA FLORES OUTPATIEN 8 8 DON R DON R T VISIT 15 MINUTES OFFICE 12300 SANDRA FLORES OUTPATIEN 8 8 DON R DON R T VISIT 15 MINUTES
--- OUTSIDE RECORDS SUMMARY | 2017-05-03 10:16 | External Medical Summary Rpt ---
Author Author , ИВАН Ward ИВАН Address Unknown Phone [email or web address] Team Providers Care Training Associate Name Role Phone LISA J, LISA J Unavailable Unavailable LISA J, LISA J Unavailable Unavailable ALFARIS MOH, ALFARIS Unavailable Unavailable MOH ALFARIS MOH, ALFARIS Unavailable Unavailable MOH FIERRO, NAVYA C, FIERRO, Unavailable Unavailable NAVYA C [facility], Unavailable Unavailable [facility] Unavailable Unavailable PHYS [facility], [...] Unavailable NASIM ENAMORADO, GAMA COX Unavailable Unavailable [facility] [place] [place] [facility] Un[facility], [employer] [facility] Unavailable Unavailable CALLIE TRICE, CALLIE Unavailable Unavailable TRCIE CALLIE TRICE, CALLIE Unavailable Unavailable TRICE TYRESE LEDESMA S, Unavailable Unavailable TYRESE LEDESMA S HARPEL SUSY, HARPEL Unavailable Unavailable SUSY EVYPELENDY R, Unavailable Unavailable HARPELSUSYENDY R [facility] Unavailable Unavailable [place], [facility] Unavailable Unavailable INC, [facility] Unavailable Unavailable P[facility], [facility] DOROTHY BETANCOURT, Unavailable Unavailable [...] [facility] Unavailable Unavailable [employer] OF AM, [facility] Unavailable Unavailable ASSOCI[facility], [place] [facility] Unavailable Unavailable SERVICES, [facility] CJ WESTFALL JR Unavailable Unavailable [...] Unavailable Unavailable [facility], [facility] FLORES DON, Unavailable Unavailable FLORES DON FLORES DON, Unavailable Unavailable FLORES DON FLORES, DON R, Unavailable Unavailable FLORES, DON R [facility] Unavailable Unavailable SURGERY [facility], [facility] Unavailable Unavailable #591, [facility] # Unavailable Unavailable [id number], [facility] # [id number] SHERYL YI Unavailable Unavailable SHERYL COLON, SHERYL COLON Unavailable Unavailable WHITE III OUSMANE, WHITE Unavailable Unavailable III ANSON LYONS, Unavailable Unavailable ANSON LEO Continuity of Care Document - 08-20-2007 through 2016 Problems Code Diagnosis DOS Provider Status 6828 CELLULITIS 12-18-2014 [facility] SPECIFIED SITE 7823 EDEMA 02-07-2014 [facility] N EMERGENCY PHYSI 59031 UNSPECIFIED 02-07-2014 [facility] SITE OF N EMERGENCY ANKLE PHYSI SPRAIN AND STRAIN E9288 OTHER 02-07-2014 [facility]Y PHYSI 5225 PERIAPICAL 01-17-2014 [facility] ABSCESS WITHOUT SINUS 7842 SWELLING 01-17-2014 [facility] MASS OR LUMP IN HEAD AND NECK 6820 CELLULITIS 06-17-2013 CALLIE TRICE AND ABSCESS OF FACE 5990 URINARY 05-28-2013 SHERYL DARLENE TRACT INFECTION SITE NOT SPECIFIED 462 ACUTE 02-20-2013 FLORES PHARYNGITIS DON 4659 ACUTE URIS 02-20-2013 FLORES OF DON UNSPECIFIED SITE 49256 STOMATITIS 11-22-2012 [facility] MUCOSITIS SERVICES UNSPECIFIED 7295 PAIN IN 10-27-2012 FEI SOFT TEAGAN TISSUES OF LIMB 92131 SWELLING OF 10-27-2012 FEI LIMB TEAGAN 35292 OTHER 10-27-2012 FEI DISORDERS TEAGAN OF SOFT TISSUE 8449 SPRAIN&STRA 10-27-2012 B[facility]IO IN OF [facility] UNSPECIFIED INC SITE OF KNEE&LEG E9068 OTHER 10-27-2012 FEI SPECIFIED TEAGAN INJURY CAUSED BY ANIMAL V692 PROBLEMS 10-21-2012 COMBINED RELATED TO PHYSICIANS HIGH-RISK LA SEXUAL BEHAVIOR 6264 IRREGULAR 10-20-2012 DIANA CARLOTA MENSTRUAL CYCLE V2542 SURVEILLANC 10-20-2012 DIANA CARLOTA E PREV PRSC INTRAUTERN CNTRACPT DEVC 7284 UNSPECIFIED 03-17-2012 ANA M FRANSICO BACKACHE V065 NEED 03-17-2012 ANA M FRANSICO PROPHYLACTI C VACCINATION W/TETANUS-D IPHTH V066 NEED PROPH 03-17-2012 ANA M FRANS[place] VACCINATION W/STREP PNEUMONE&[place] U [address] ONYCHIA AND 03-11-2012 [facility] PARONYCHIA EMERGENCY OF TOE PHYS PSC 6262 EXCESSIVE 10-17-2011 SARAH RAN OR FREQUENT MENSTRUATIO N 23781 MATERNAL 10-17-2011 SARAH RAN MENTAL D/O COND/COMPLI CATION V242 ROUTINE 10-17-2011 PATHOLOGY & CYTOLOGY FOLLOW-UP LAB V745 SCREENING 10-17-2011 PATHOLOGY & EXAMINATION CYTOLOGY FOR LAB VENEREAL DISEASE 6159 UNSPECIFIED 08-26-2011 [facility] Y DISEASE OF UTERUS 67953 ABN MAT 08-26-2011 [facility] GLUCOSE JIN & TOLERANCE DUBILIER COMPL PG CB/PP UNS EOC 63567 ABNORMAL 08-26-2011 [facility] MATERNAL [facility] GLUCOSE [facility]OSP TOLERANCE W/DELIVERY 54894 TOBACCO USE 08-26-2011 [facility] D/O COMP [facility] PG HOSP CHILDBIRTH/ PP DELIVERED 26489 08-26-2011 YOHANNES DAGO DISTRESS AFFECT MANAGEMENT MOTH DELIVERED 07222 ABN FETL 08-26-2011 [facility] HRT [facility] RATE/RHYTHM HOSP DELIV W/WO ANTPRTM COND 55622 PUERPERAL 08-26-2011 [facility] ENDOMETRITI [facility] S DELIVERED HOSP W/MEN PP COMP V270 OUTCOME OF 08-26-2011 [facility] DELIVERY [facility] SINGLE HOSP LIVEBORN 08021 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 ANTEPARTUM 01135 ABNORMAL 08-22-2011 [facility] BAKER MATERNAL GLUCOSE TOLERANCE ANTEPARTUM 66740 TOB USE D/O 08-22-2011 [facility] BAKER COMP PG /PP ANTEPARTM COND/COMP 68762 POOR 08-22-2011 [facility] GROWTH MGMT MOTH ANTPRTM COND/COMP 77589 THREATENED 08-15-2011 [facility] PREMATURE LABOR ANTEPARTUM 87407 EDEMA OR 2011 MARIA L Ko EXCESSIVE WEIGHT GAIN ANTEPARTUM V221 SUPERVISION 2011 MEDICAL OF OTHER DIAGNOSTIC [facility] V286 SCREENING 2011 MEDICAL OF DIAGNOSTIC STREPTOCOCC LAB [facility] [place] [place] [address] DIAB W/O 08-01-2011 [facility] BAKER COMP TYPE II/UNS NOT STATED UNCNTRL 92984 MATERNAL 08-01-2011 [facility] DIABETES MELLITUS ANTEPARTUM V5867 LONG-TERM 08-01-2011 [facility] ABKER USE OF INSULIN 69821 DECR 07-18-2011 [facility] MOVMNTS MGMT MOTH ANTPRTM COND/COMP 00922 INFECTIONS 07-11-2011 [facility] BAKER OF GENITOURINA RY TRACT ANTEPARTUM V653 DIETARY 06-28-2011 [facility] SURVEILLANC DR[facility] E AND HOSP COUNSELING V851 BODY MASS 06-28-2011 [facility] INDEX [facility] - ADULT 89503 LATE 05-16-2011 [facility] VOMITING OF SUPERVISOR WOOD ROOM ASSOCIATES ANTEPARTUM V2881 ENCOUNTER 04-18-2011 [facility] FOR SUPERVISOR WOOD ROOM ANATOMIC ASSOCIATES SURVEY V220 SUPERVISION 03-21-2011 LAB [place] [address] UNSPECIFIED 02-13-2011 [facility] DENTAL [facility] CARIES INC 5259 UNSPECIFIED 02-13-2011 [facility] DISORDER EMERGENCY TEETH&SUPPO SERVICES RTING STRUCTURES 93527 OTH CURRENT 02-13-2011 [facility] KIRKPATRICK EMERGENCY CLASSIFIABL SERVICES E ELSW ANTPRTM 6164 OTHER 02-12-2011 [place] ABSCESS OF SUPERVISOR WOOD ROOM VULVA ASSOCIATES 6238 OTHER 02-12-2011 LAB DARLYN SPECIFIED AMERIC NONINFLAMMA HOLDING TORY DISORDER VAGINA 6235 LEUKORRHEA 01-22-2011 PATHOLOGY & NOT CYTOLOGY SPECIFIED LAB INFECTIVE 82020 MILD 01-22-2011 [place] HYPEREMESIS SUPERVISOR WOOD ROOM GRAVIDARUM ASSOCIATES ANTEPARTUM 5206 DISTURBANCE 10-16-2010 THE IMPLANT S IN TOOTH & ORAL ERUPTION SURGERY C V7284 UNSPECIFIED 10-16-2010 COMBINED PHYSICIANS PRE-OPERATI LA VE EXAMINATION 32590 REFLUX 09-11-2010 FLORES ESOPHAGITIS DON 7821 RASH AND 09-11-2010 FLORES OTHER DON NONSPECIFIC SKIN ERUPTION 00230 OTHER 03-07-2010 FLORES SPECIFIED DON DISORDERS OF URINARY TRACT 7881 DYSURIA 03-07-2010 FLORES DON 3670 HYPERMETROP 02-24-2010 NE IA VISION V259 UNSPECIFIED 02-17-2010 [facility] PCC VE MANAGEMENT 6160 CERVICITIS 01-17-2010 PATHOLOGY & AND CYTOLOGY ENDOCERVICI LAB TIS V7231 ROUTINE 01-17-2010 [facility] 01538 SHORTNESS 12-20-2009 [facility] IM[facility] 9948 ELECTROCUTI 12-20-2009 [facility] ON&NONFATAL [facility] ELECTRIC PROF SERV CURRENT 4618 OTHER ACUTE 06-27-2009 FLORES, [place] R [address] ABDOMINAL 02-07-2009 FLORES, PAIN RIGHT DON R LOWER QUADRANT V069 NEED PROPH 02-07-2009 [facility] VACCINATION HEALTH W/UNSPEC [facility] COMB [facility] ACCT VACCINE 7061 OTHER ACNE 10-01-2008 [facility] V2549 SURVEILLANC 10-01-2008 [facility] 38985 HEMATURIA 07-07-2008 FLORES, UNSPECIFIED DON R 7880 [...] 7011 ACQUIRED 02-11-2008 FLORES, [place] [address] OTHER ACUTE 02-10-2008 [facility] POSTOPERATI INC VE PAIN 632 MISSED 02-08-2008 PATHOLOGY & CYTOLOGY LAB 38893 INCOMPLETE 02-08-2008 [place] SPONTANEOUS MEDICAL AB WITHOUT IMAGING MENTION ASSOCIATES COMP 68523 OTHER 01-13-2008 ENDY Lewis SPECIFED RAUHL CHAEVZ COMPLICATIO N ANTEPARTUM 6268 OTH D/O 01-08-2008 [...] OTITIS DON R MEDIA 6253 DYSMENORRHE 11-04-2007 [facility] PROF SERV 6259 UNSPEC 11-04-2007 FLORES, SYMPTOM DON R ASSOC W/FEMALE GENITAL ORGANS 39978 ABDOMINAL 11-04-2007 [place] PAIN, MEDICAL UNSPECIFIED IMAGING SITE ASSOCIATES 57667 CHEST PAIN 08-25-2007 FLORES, UNSPECIFIED DON R Medications Na ND Rx Da Fi Fi Am Da Di Ph RX Ph St me C No te ll ll ou ys ag ar # ys at rm s nt no ma ic us Or Da si cy ia de te s n re d NH 37 02 10 [address] Ac [place] 00 -1 -[address] 23 EP ti OS 00 4- 5- 00 SI 10 HE ve EC 45 20 20 DE NS 50 11 11 OT 2 PH DO C AR N 20 MA R .6 CY MG OF TA CY BL NT ET HI AN A NH 37 02 09 [address] Ac IL 00 -1 -[address] 23 EP ti OS 00 4 9 SI 10 HE ve EC 45 20 20 DE NS 50 11 11 OT 2 PH DO C AR N 20 MA R .6 CY MG OF TA CY BL NT ET HI AN A NH 37 02 07 5 [address] Ac IL 00 -1 -[address] 23 EP ti OS 00 4 SI 10 HE ve EC 45 20 20 DE NS 50 11 11 OT 2 PH DO C AR N 20 MA R .6 CY MG OF TA CY BL NT ET HI AN A NH 37 02 05 5 [address] Ac IL 00 -1 -[address] 23 EP ti OS 00 4 8 SI 10 HE ve EC 45 20 20 DE NS 50 11 11 OT 2 PH DO C AR N 20 MA R .6 CY MG OF TA CY BL NT ET HI AN A NH 37 02 04 5 30 30 EA [...] OF ET CY NT HI AN A NH 37 02 02 5 30 30 EA [...] 0 [address] Ac [place] 17 -1 -[address] 65 EP [...] 20 20 RT 7 70 10 10 ND 5 PH CH AR AE MA L CY S # 10 05 91 CE 68 06 06 0 21 7 WA 70 GA Ac PH 18 -1 -1 .0 L- 74 IN ti AL 00 3 00 MA 51 EY ve EX 12 20 20 RT 9 IN 20 10 10 ND 1 PH CH 50 AR AE 0 [...] [address] Ac NH 17 -1 -3 .0 TE 15 EP [...] 00 60 30 WA 70 CL Ac NH 09 -0 -1 .0 L- 11 AR [...] 20 20 RT 9 00 08 08 ND 1 PH CH AR AE MA L CY S #5 91 00 07 08 00 8. 2 WA 44 GA Ac 09 -1 -0 00 L- 69 IN ti 30 5- 1- 0 MA 53 EY ve 89 20 20 RT 5 00 08 08 ND 5 PH CH AR AE MA L [...] 00 20 10 CL 16 No Ac NH 11 -2 -2 .0 IN 32 t [...] Procedure DOS Code Location Performer Comment INCISION 37965 CALLIE LEDESMA & 3 TRICE TRICE DRAINAGE ABSCESS SIMPLE/SI NGLE IAADIADOO 92571 SANDRA FLORES 3 DON DON STREPTOCO CCUS GROUP A CRTCHS E0114 [employer] [employer] UNDARM 3 OTH THAN WOOD PAIR PAD TIP&HNDGR IP RADIOLOGI 57900 [facility]IO Gonzalez 3 [facility] EXAMINATI INC INC ON TIBIA & FIBULA 2 VIEWS RADEX 74020 [facility] RAMSEY ANKLE 3 [facility] COMPLETE INC INC MINIMUM 3 VIEWS APPLICATI 59430 B[facility]IO RAMSEY ON LONG 3 [facility] LEG INC INC SPLINT THIGH ANKLE/TOE S CUL BACT 62545 COMBINED COMBINED XCPT 3 PHYSICIAN PHYSICIAN URINE S LA S LA BLOOD/STO OL AEROBIC ISOL ANTIBODY 62281 COMBINED COMBINED CHLAMYDIA 3 PHYSICIAN PHYSICIAN S LA S LA HEPATITIS 11425 [facility] RAM[facility] B CORE 3 [facility] ANTIBODY INC INC HBCAB TOTAL ANTIBODY 49339 BRAULIO RAMSEY HERPES 3 MEM [facility]OS[facility] SMPLX INC INC TYPE 1 ANTIBODY 32321 BRAULIO RAMSEY VIRUS NOT 3 MEM [facility]OS[facility]OS[facility] INC INC ELSEWHERE SPECIFIFE D HEPATITIS 74283 BRA[facility]IO RAMSEY C 3 [facility] ANTIBODY INC INC HEPATITIS 04963 B[facility]IO RAMSEY A 3 [facility] ANTIBODY INC INC HAAB HEPATITIS 84691 BRAULIO Ayala SURF 3 [facility] [place] [address] BRAULIO RAMSEY HEPATITIS 3 [facility] B INC INC SURFACE ANTIGEN INFLUENZA 70942 ANA M ANA M VACC 2 FRANSICO FRANSICO IIV3 SPLIT VIRUS PRSRV FREE ID INCISION 37577 [facility] RUSCHMAN & 2 EMERGENCY FRANS[place] DRAINAGE PHYS PSC ABSCESS SIMPLE/SI NGLE IADNA 33127 PATHOLOGY PICKLESIM CHLAMYDIA 2 & ER JR JAIMEE CYTOLOGY TRACHOMAT LAB IS AMPLIFIED PROBE TQ IADNA 09538 PATHOLOGY PICKLESIM NEISSERIA 2 & ER JR JAIMEE CYTOLOGY GONORRHOE LAB AE AMPLIFIED PROBE TQ CYTP C/V 64406 PATHOLOGY PICKLESIM AUTO THIN 2 & ER JR JAIMEE LYR CYTOLOGY PREPJ SCR LAB MNL RESCR PHYS LOW 741 [facility]TRAL CERVICAL 2 [facility] HOSP SECTION 58951 [facility] BELKYS DELIVERY 2 OLIVIA OLIVIA ONLY ANESTHESI 70110 YOHANNES WHITE III A 2 DAGO [place]MAN[place] [address] [facility]PS GAMA KENNY SURG 2 JIN & PATHOLOGY DUBILIER GROSS&TRICE ROSCOPIC EXAM US PREG 77715 [facility] BELKYS UTERUS 2 OLIVIA OLIVIA REAL TIME F/U TRNSABDL PER FETUS IADNA 23875 MEDICAL MEDICAL STREPTOCO 2 DIAGNOSTI DIAGNOSTI CCUS C LAB LLC C LAB LLC GROUP B [place] T[place] PREG 56382 [facility] BELKYS UTERUS 1 OLIVIA OLIVIA REAL TIME F/U TRNSABDL PER FETUS SMR PRIM 83754 [facility] SRC WET 1 OLIVIA OLIVIA MOUNT NFCT AGT DIAB G0109 [facility]TRAL SELF-MGMT 1 [facility] DR[facility] TRN SRVC HOSP HOSP GROUP SESSION PER 30 MIN GLUCOSE 05815 LAB DARLYN LAB DARLYN TOLERANCE 1 AMERIC AMERIC EA ADDL HOLDINGS HOLDING BEYOND 3 SPECIMENS GLUCOSE 91388 LAB DARLYN LAB DARLYN TOLERANCE 1 AMERIC AMERIC TEST GTT HOLDINGS HOLDING 3 SPECIMENS BLOOD 25059 LAB DARLYN LAB DARLYN COUNT 1 AMERIC AMERIC COMPLETE HOLDINGS HOLDING AUTOMATED GLUCOSE 32002 LAB D[facility]N LAB DARLYN POST 1 AMERIC AMERIC GLUCOSE HOLDINGS HOLDING DOSE ANTIBODY 84678 LAB DARLYN LAB DARLYN SCREEN 1 AMERIC AMERIC RBC EACH HOLDINGS HOLDING SERUM TECHNIQUE US PREG 94991 [place] BELKYS UTERUS 1 SUPERVISOR WOOD ROOM OLIVIA AFTER ASSOCIATE [place] [address] LAB COR LAB COR 1 YS[place] [address] LAB COR LAB COR ESTRIOL 1 YSABEL YSABEL HOLDING HOLDING [place] ALPHA-FET 64771 LAB COR LAB COR OPROTEIN 1 YSABEL YSABEL SERUM HOLDING [place]ING [place] GONADOTRO 53952 LAB COR LAB COR PIN 1 YSABEL YSABEL CHORIONIC HOLDING HOLDING LA [place] QUANTITAT LUIZ US PREG 08226 [place] BELKYS UTERUS 1 SUPERVISOR WOOD ROOM OLIVIA REAL TIME ASSOCIATE W/[place] [address] LAB DARLYN LAB DARLYN NON-IMMUN 1 AMERIC AMERIC OLOGIC HOLDING HOLDING OTH/THN CYTOPATHI C CYTP C/V 31140 PATHOLOGY PATHOLOGY AUTO THIN 1 & & LYR CYTOLOGY CYTOLOGY PREPJ SCR LAB LAB MNL RESCR PHYS US PREG 50238 [place] BELK[facility] UTERUS 1 SUPERVISOR WOOD ROOM OLIVIA REAL TIME ASSOCIATE W/IMAGE S DCMTN TRANSVAG DRUG SCR G0434 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 NOT 1 Y Y CHROMATOG CORPORATI CORPORATI RAPHIC; ON OF AM ON OF AM ANY NUMBER PT ENC IADNA 49181 PATHOLOGY PATHOLOGY CHLAMYDIA 1 & & CYTOLOGY CYTOLOGY TRACHOMAT LAB LAB IS AMPLIFIED PROBE TQ IADNA 50382 PATHOLOGY PATHOLOGY NEISSERIA 1 & & CYTOLOGY CYTOLOGY GONORRHOE LAB LAB AE AMPLIFIED PROBE TQ ORTHOPANT 94324 THE BAUDILIO OGRAM 1 IMPLANT & DON ORAL SURGERY C GONADOTRO 22782 COMBINED COMBINED PIN 1 PHYSICIAN PHYSICIAN GRIFFIN S LA S LA QUANTITAT LUIZ OPHTH 06534 NE GONG MEDICAL 0 VISION CHAPARRITA M XM&EVAL COMPRHNSV ESTAB PT 1/> REMOVAL 98746 [facility] IMPLANTAB 0 PHYSICIAN SUSY CONTRERAS GROUP CONTRACEP PCC TIVE CAPSULES IADNA 12377 PATHOLOGY PATHOLOGY NEISSERIA 0 & & CYTOLOGY CYTOLOGY GONORRHOE LAB LAB AE AMPLIFIED PROBE TQ IADNA 66575 PATHOLOGY PATHOLOGY CHLAMYDIA 0 & & CYTOLOGY CYTOLOGY TRACHOMAT LAB LAB IS AMPLIFIED PROBE TQ CYTP C/V 17802 PATHOLOGY PATHOLOGY AUTO THIN 0 & & LYR CYTOLOGY CYTOLOGY PREPJ SCR LAB LAB MNL RESCR PHYS ECG 14161 BRAULIO [place] ROUTINE 0 [facility] W/LEAST PROF SERV 12 LDS I&R ONLY ECG 89449 BRA[facility]IO BRAULIO ROUTINE 0 [facility] ECG INC INC W/LEAST 12 LDS TRCG ONLY W/O I&R RADIOLOGI 63759 [facility] ENAMORADO EXAM 0 MEDICAL NASIM CHEST 2 IMAGING VIEWS ASSOCIATE FRONTAL&L S ATERAL OPHTH 98468 NE [facility] 9 VISION CHAPARRITA M XM&EVAL COMPRHNSV ESTAB PT 1/> IM ADM 05895 [facility] PRQ ID 9 [facility] HEALTH SUBQ/IM [facility] NJXS 1 BANK ACCT VACCINE MPSV4 83859 [facility] VACCINE 9 HEALTH CO HEALTH GROUPS [facility] ACYW-135 BANK ACCT SUBQ USE IM ADM 64109 [facility] BRAULIO PRQ ID 9 [facility] HEALTH SUBQ/IM [facility] NJXS 1 BANK ACCT VACCINE IM ADM 26339 [facility] BRAULIO PRQ ID 8 [facility] HEALTH SUBQ/IM [facility] NJXS 1 BANK ACCT VACCINE URINE 10825 [facility] RAMSEY 8 [facility] TEST INC INC VISUAL COLOR CMPRSN METHS URNLS DIP 73891 [facility] RAMSEY 8 [facility] STICK/TAB INC INC LET REAGENT AUTO MICROSCOP Y CULTURE 98235 [facility] RAMSEY BACTERIAL 8 [facility] INC INC QUANTTATI VE COLONY COUNT URINE BLOOD 65387 [facility] RAMSEY COUNT 8 [facility] COMPLETE INC INC AUTO&AUTO DIFRNTL WBC ANESTHESI 06085 Grecia DOMINGUEZ 8 ANESTH CJ Ji INCOMPLET OF THE E/MISSED [place] US PREG 31173 [facility], UTERUS 8 MEDICAL NASIM REAL TIME IMAGING W/IMAGE [place] [address] PATHOLOGY PATHOLOGY SURG 8 & & PATHOLOGY CYTOLOGY CYTOLOGY LAB LAB GROSS&TRICE ROSCOPIC EXAM US PREG 72997 ENDY R HARPEL, UTERUS 8 MARIMARL MD ENDY Leiws REAL TIME W/IMAGE DCMTN TRANSVAG IADNA 64214 [facility], CHLAMYDIA 8 [place] INC DOROTHY D TRACHOMAT IS AMPLIFIED PROBE TQ CYTP 94166 [facility] [place], CERV/VAG 8 [place] INC DOROTHY D AUTO THIN LAYER PREP MNL SCREEN IADNA 31173 [facility] [place], HERPES 8 [place] INC DOROTHY D SOMPLX VIRUS AMPLIFIED PROBE TQ IADNA 76415 [facility] [place], NEISSERIA 8 [place] INC DOROTHY D GONORRHOE AE AMPLIFIED PROBE TQ URINE 42197 [facility] BRAULIO 8 [facility] HEALTH TEST [facility] VISUAL BANK ACCT COLOR CMPRSN METHS GONADOTRO 01567 COMBINED COMBINED PIN 8 PHYSICIAN PHYSICIAN CHORIONIC S LAB S LAB QUANTITAT LUIZ URINE 11469 [facility] RAMSEY 8 [facility] TEST INC INC VISUAL COLOR CMPRSN METHS BASIC 33309 B[facility]IO [facility]SEY METABOLIC 8 [facility] PANEL INC INC CALCIUM TOTAL CT PELVIS 96524 PAULO FEI, W/O 8 MEDICAL NASIM CONTRAST IMAGING MATERIAL ASSOCIATE S 3D 87243 [facility] RAMSEY RENDERING 8 [facility] INC INC W/INTERP& POSTPROC DIFF WORK STATION CULTURE 39064 [facility]IO RAMSEY BACTERIAL 8 [facility] INC [place] [address] PAULO FEI, ABDOMEN 8 MEDICAL NASIM W/O IMAGING CONTRAST ASSOCIATE MATERIAL S URNLS DIP 31447 [facility] RAMSEY 8 [facility] STICK/TAB INC INC LET REAGENT AUTO MICROSCOP Y BLOOD 40995 [facility] RAMSEY COUNT 8 [facility] COMPLETE INC INC AUTO&AUTO DIFRNTL WBC RADEX 49442 SANDRA, SANDRA, RIBArpit UNI 8 DON R DON R W/POSTERO ANT CH MINIMUM 3 VIEWS Encounters Encounter Start End Date Code Location Performer Type Date EMERGENCY 24677 BRI LEDESMA 5 5 PHYSIC[facility] MODERATE SEVERITY [facility]ERGENC[facility] 71612 [facility] 4 4 [facility] DEPARTMEN EMERGENCY T VISIT PHYSI MODERATE SEVERITY EMERGENCY 86677 [facility] 4 4 [facility] DEPARTMEN T VISIT MODERATE SEVERITY EMERGENCY 73705 CALLIE LEDESMA 3 3 TRICE TRICE DEPARTMEN T VISIT HIGH/URGE NT SEVERITY EMERGENCY 70859 SHERYL COLON 3 3 DEPARTMEN T VISIT MODERATE SEVERITY OFFICE 60391 SANDRA FLORES OUTPATIEN 3 3 DON DON T VISIT 15 MINUTES EMERGENCY 87444 MYNOR JAMESON 3 3 EMERGENCY DEPARTMEN SERVICES T VISIT MODERATE SEVERITY EMERGENCY 97167 [facility] 3 3 [facility] DEPARTMEN INC T VISIT LOW/MODER SEVERITY HOSPITAL [facility] - 3 3 [facility] OUTPATIEN INC T EMERGENCY 05138 [facility] 3 3 [facility] DEPARTMEN INC T VISIT MODERATE SEVERITY HOSPITAL BRAULIO - 3 3 [facility] OUTPATIEN INC T EMERGENCY 73695 CALLIE CALLIE 3 3 [facility] DEPARTMEN T VISIT HIGH/URGE NT SEVERITY HOSPITAL BRAULIO - 3 3 [facility] OUTPATIEN INC T OFFICE 29609 ORTIZ DIANA OUTPATIEN 3 3 [place] CARLOTA T VISIT 25 MINUTES OFFICE 31942 ANA M VIRAMONTES OUTPATIEN 2 2 FRANSICO FRANSICO T NEW 30 MINUTES EMERGENCY 10784 [facility] 2 2 EMERGENCY [place]ANS[place] DEPARTMEN PHYS PSC T VISIT HIGH/URGE NT SEVERITY OFFICE 86300 [facility] BELKYS OUTPATIEN 2 2 OLIVIA OLIVIA T VISIT 15 MINUTES OFFICE 82544 SARAH SINHA OUTPATIEN 2 2 T VISIT 15 MINUTES OFFICE 36971 [facility] BELKYS OUTPATIEN 2 2 OLIVIA OLIVIA T VISIT 15 MINUTES HOSPITAL [facility] - 2 2 [facility] INPATIENT HOSP OFFICE 83958 [facility] OUTPATIEN 2 2 OLIVIA OLIVIA T VISIT 15 MINUTES OFFICE 58167 [facility] OUTPATIEN 2 2 OLIVIA OLIVIA T VISIT 15 MINUTES OFFICE 02116 MARIA L Ko OUTPATIEN 2 2 T VISIT 15 MINUTES OFFICE 33556 [facility]YS OUTPATIEN 2 2 OLIVIA OLIVIA T VISIT 15 MINUTES OFFICE 67223 [facility] OUTPATIEN 1 1 OLIVIA OLIVIA T VISIT 15 MINUTES OFFICE 93856 [facility] OUTPATIEN 1 1 OLIVIA OLIVIA T VISIT 15 MINUTES OFFICE 85954 [facility]PAT[facility] 1 1 [facility] OLIVIA T VISIT 15 MINUTES [facility] - 1 1 [facility] OUT[facility] T OFFICE 71997 SARAH SMITH RAN OUTPATIEN 1 1 T VISIT 15 MINUTES OFFICE 37425 [facility]ENITO OUTPATIEN 1 1 SUPERVISOR WOOD ROOM DEN T VISIT ASSOCIATE 15 S MINUTES OFFICE 23380 [facility] BENITO OUTPATIEN 1 1 SUPERVISOR WOOD ROOM DEN T VISIT ASSOCIATE 15 S MINUTES OFFICE 82390 [facility] BENITO OUTPATIEN 1 1 SUPERVISOR WOOD ROOM DEN T VISIT ASSOCIATE 15 S MINUTES OFFICE 95872 [facility] BENITO OUTPATIEN 1 1 SUPERVISOR WOOD ROOM DEN T VISIT ASSOCIATE 15 S MINUTES EMERGENCY 46481 [facility] 1 1 [facility] T VISIT LIMITED/M [facility] - [facility] 1 [facility] OUTPATIEN INC T EMERGENCY 55632 MYNOR LEDESMA 1 1 EMERGENCY TRICE DEPARTMEN SERVICES T VISIT HIGH/URGE NT SEVERITY OFFICE 23545 AF[facility] SLATER OUTPATIEN 1 1 SUPERVISOR WOOD ROOM T VISIT ASSOCIATE 15 S MINUTES OFFICE 34048 AF[facility] RIZVI OUTPATIEN 1 1 SUPERVISOR WOOD ROOM OLIVIA T NEW 45 ASSOCIATE MINUTES S OFFICE 64359 THE BAUDILIO OUTPATIEN 1 1 IMPLANT & DON T NEW 20 ORAL MINUTES SURGERY C OFFICE 20242 SANDRA FLORES OUTPATIEN 1 1 DON DON T VISIT 15 MINUTES OFFICE 81040 SANDRA FLORES OUTPATIEN 0 0 DON DON T VISIT 15 MINUTES PERIODIC 65206 WOMEN'S ORTIZ, PREVENTIV 0 0 HEALTH REID J E MED EST [facility] EMERGENCY 13931 [facility] 0 0 [facility] DEPARTMEN INC T VISIT LOW/MODER SEVERITY [facility]OSPITAL [facility] - 0 0 [facility] OUTPATIEN INC T EMERGENCY 35964 MYNOR LEDESMA, 0 0 EMERGENCY [facility] DEPARTMEN SERVICES T VISIT MODERATE ASSOCIATE SEVERITY S EMERGENCY 80138 MYNOR LEDESMA, DEPT 0 0 EMERGENCY [facility] VISIT SERVICES HIGH SEVERITY& ASSOCIATE THREAT S [facility] - 0 0 [facility] OUTPATIEN INC T EMERGENCY 83668 [facility] 0 0 [facility] DEPARTMEN INC T VISIT LOW/MODER SEVERITY OFFICE 53667 SANDRA FLORES OUTPATIEN 9 9 DON R DON R T VISIT 15 MINUTES OFFICE 29445 SANDRA FLORES OUTPATIEN 9 9 DON R DON R T VISIT 15 MINUTES OFFICE 41529 [facility] MISHAEN 9 9 [facility] 10 BANK ACCT MINUTES OFFICE 26566 [facility] ORTIZTIM [facility] 9 9 HEALTH REID J T 30 [facility] OFFICE 29815 [facility] OUTPATIEN 9 9 [facility] 10 BANK ACCT MINUTES OFFICE 47039 [facility] OUTPATIEN 8 8 [facility] 10 BANK ACCT MINUTES OFFICE 24370 SANDRA FLORES OUTPATIEN 8 8 DON R DON R T VISIT 25 MINUTES OFFICE 76640 TIM BECKFORD 8 8 RAHUL Lewis T VISIT 15 MINUTES [facility]OSPITAL [facility] - 8 8 [facility] OUTPATIEN INC T EMERGENCY 49235 [facility] 8 8 [facility] DEPARTMEN INC T VISIT LIMITED/M INOR PROB OFFICE 14063 SANDRA FLORES OUTPATIEN 8 8 DON R DON R T VISIT 15 MINUTES OFFICE 64996 TIM BECKFORD 8 8 RAHUL SCHUMACHER R T VISIT 15 MINUTES OFFICE 49185 SANDRA FLORES OUTPATIEN 8 8 DON R DON R T VISIT 15 MINUTES EMERGENCY 58839 [facility] 8 8 [facility] [facility] VISIT [facility] T OFFICE [id number] TIM [place] 8 8 RAHUL SCHUMACHER R T VISIT 15 MINUTES OFFICE 95041 ENDY [facility] OUTPATIEN 8 8 RAHUL SCHUMACHER R T NEW 60 MINUTES OFFICE 28314 [facility] 15 BANK ACCT MINUTES OFFICE [id number] [facility] 8 8 [facility] T VISIT CLIN[facility] OF 15 MINUTES [facility] - 8 8 [facility] T OFFICE 75521 [facility] OUTPATIEN 8 8 DON R DON R T VISIT 15 MINUTES EMERGENCY 09527 [facility]IO [facility], [facility] V[facility]IT PROF SERV MODERATE SEVERITY OFFICE 78844 [facility] OUTPATIEN 8 8 DON R DON R T VISIT 15 MINUTES OFFICE 21878 [facility] OUTPATIEN 8 8 DON R DON R T VISIT 15 MINUTES
--- OUTSIDE RECORDS SUMMARY | 2017-05-03 10:17 | External Medical Summary Rpt ---
Author Author , ИВАН OATES Address Unknown Phone [email or web address] Name Date Rout CVX Reac Dose Comm Prov Is Faci e tion ent ider Refu lity Give sed n HPV4 07-1 62 999 Hist H149 No H149 3-20 oric (Gar 09 al dasi Info l) rmat ion - Sour ce Unsp ecif ied Meni 07-1 32 999 Hist H149 No H149 peggy 3-20 oric occa 09 al l Info MPSV rmat 4 ion - Sour ce Unsp ecif ied HPV4 02-2 62 999 Hist H149 No H149 6-20 oric (Gar 09 al dasi Info l) rmat ion - Sour ce Unsp ecif ied HPV4 12-2 62 999 Hist H149 No H149 2-20 oric (Gar 08 al dasi Info l) rmat ion - Sour ce Unsp ecif ied Td 07-2 9 999 Hist H149 No H149 (minoo 8-20 oric lt), 05 al Info adso rmat rbed ion - Sour ce Unsp ecif ied Vari 01-1 21 999 Hist H149 No H149 cell 4-20 oric a 03 al Info rmat ion - Sour ce Unsp ecif ied DTaP 03-2 107 999 Hist H149 No H149 , UF 4-19 oric 97 al Info rmat ion - Sour ce Unsp ecif ied MMR 03-2 3 999 Hist H149 No H149 4-19 oric 97 al Info rmat ion - Sour ce Unsp ecif ied Oscar 03-2 2 999 Hist H149 No H149 o-OP 4-19 oric V 97 al Info rmat ion - Sour ce Unsp ecif ied
--- OUTSIDE RECORDS SUMMARY | 2017-05-03 10:17 | External Medical Summary Rpt ---
Author Author , ИВАН OATES Address Unknown Phone [email or web address] Immunization Name Date Rout CVX Reac Dose [...]
--- OUTSIDE RECORDS SUMMARY | 2017-05-03 10:18 | External Medical Summary Rpt ---
Author Author JULIOSOREN Stafford, [employer] Organization [employer] Address Unknown Phone Unavailable Results CBC W Auto Differential panel in Blood Observa Value Referen Units Interpr Notes Date tion ce etation Range Basophils 0 - 0.2 K/MM3 Normal No Mar 28 informati 2017 5:55 [#/volume on in AM ] in source Blood by data Automated count Basophils 0.1 - 2.0 % Normal No Mar 28 informati 2017 5:55 leukocyte on in AM s in source Blood by data Automated count Eosinophi 0.0 - 0.4 K/mm3 Normal No Mar 28 ls informati 2017 5:55 [#/volume on in AM ] in source Blood by data Automated count Eosinophi 0.1 - % Normal No Mar 28 ls/100 12.0 informati 2017 5:55 leukocyte on in AM s in source Blood by data Automated count Granulocy 1.8 - 7.8 K/mm3 Normal No Mar 28 cary informati 2017 5:55 [#/volume on in AM ] in source Blood by data Automated count Granulocy 37.0 - % Normal No Mar 28 cary/100 80.0 informati 2017 5:55 leukocyte on in AM s in source Blood by data Automated count Hematocri 37.0 - % Low No Mar 28 t [Volume 47.0 informati 2016 5:55 on in AM Fraction] source of Blood data Hemoglobi 12.2 - g/dL Low No Mar 28 n 16.2 informati 2017 5:55 [Mass/vol on in AM ume] in source Blood data Lymphocyt 0.7 - 4.5 K/mm3 Normal No Mar 28 es informati 2017 5:55 [#/volume on in AM ] in source Unspecifi data ed specimen by Automated count Lymphocyt 10 - 50.0 % Normal No Mar 28 es informati 2017 5:55 [#/volume on in AM ] in source Unspecifi data ed specimen by Automated count Erythrocy 27 - 31.2 pg Normal No Mar 28 te mean informati 2017 5:55 corpuscul on in AM ar source hemoglobi data n [Entitic mass] Erythrocy 31.8 - g/dl Normal No Mar 28 te mean 35.4 informati 2017 5:55 corpuscul on in AM ar source hemoglobi data n concentra tion [Mass/vol ume] by Automated count Erythrocy 82.2 - fl Normal No Mar 28 te mean 97.8 informati 2016 5:55 corpuscul on in AM ar volume source [Entitic data volume] by Automated count Monocytes 0.1 - 1.0 K/mm3 Normal No Mar 28 informati 2016 5:55 [#/volume on in AM ] in source Blood by data Automated count Monocytes 1.7 - 9.3 % Normal No Mar 28 /100 informati 2017 5:55 leukocyte on in AM s in source Blood by data Automated count Platelet 7.4 - fl Normal No Mar 28 mean 10.4 informati 2016 5:55 volume on in AM [Entitic source volume] data in Blood by Automated count Platelets 142 - 424 K/mm3 Normal No Mar 28 informati 2017 5:55 [#/volume on in AM ] in source Blood data Erythrocy 4.2 - 5.4 M/mm3 Low No Mar 28 cary informati 2017 5:55 [#/volume on in AM ] in source Amniotic data fluid Erythrocy 11.5 - % Normal No Mar 28 te 17.5 informati 2016 5:55 distribut on in AM ion width source [Entitic data volume] by Automated count Leukocyte 4.8 - K/MM3 No Mar 28 s 10.8 informati informati 2016 5:55 [#/volume on in on in AM ] in source source Blood data data Basic metabolic panel in Blood Observa Value Referen Units Interpr Notes Date tion ce etation Range Urea 7 - 18 mg/dL Low No Mar 28 nitrogen informati 2017 5:55 [Mass/vol on in AM ume] in source Serum or data Plasma Calcium 8.5 - mg/dL Low No Mar 28 [Mass/vol 10.1 informati 2017 5:55 ume] in on in AM Serum or source Plasma data Chloride 98 - 107 mmoL/L Normal No Mar 28 [Moles/vo informati 2016 5:55 lume] in on in AM Serum or source Plasma data Carbon 21.0 - mmoL/L Normal No Mar 28 dioxide, 32.0 informati 2017 5:55 total on in AM [Moles/vo source lume] in data Serum or Plasma Creatinin 0.55 - mg/dL Normal No Mar 28 e 1.02 informati 2016 5:55 [Mass/vol on in AM ume] in source Serum or data Plasma Creatinin 50 - 200 ML/MIN Normal No Mar 28 e renal informati 2016 5:55 clearance on in AM source predicted data by Cockcroft -Gault formula Estimated 59- ML/MIN No REFERENCE Mar 28 informati RANGE: 2017 5:55 glomerula on in >60 AM r source ML/MIN/1. filtratio data 73 SQUARE n rate METERSIf (GF this patient is -A merican, then multiply theresult by 1.210. Glucose 74 - 106 mg/dL High No Mar 28 [Mass/vol informati 2016 5:55 ume] in on in AM Serum or source Plasma data Potassium 3.5 - 5.1 mmoL/L Normal No Mar 28 informati 2016 5:55 [Moles/vo on in AM lume] in source Serum or data Plasma Sodium 136 - 145 mmoL/L Normal No Mar 28 [Moles/vo informati 2016 5:55 lume] in on in AM Serum or source Plasma data Drugs identified in Urine by Screen method Observa Value Referen Units Interpr Notes Date tion ce etation Range Positive urine drug screen samples are stored for 7 days. Contact the Lab if confirmation of positives is needed. Ampheta POSITIV <1000 ng/mL Abnorma This is Mar 27 mine E l an 2016 [Presen UNCONFI 1:40 AM ce] in RMED Urine result. by This Screen result method is for medical purpose s and/or treatme nt only. Barbitura <200 ng/mL No No Mar 27 cary informati informati 2016 1:40 [Mass/vol on in on in AM ume] in source source Urine by data data Screen method Benzodiaz 200 ng/mL ng/mL No No Mar 27 epines informati informati 2016 1:40 [Mass/vol on in on in AM ume] in source source Serum or data data Plasma by Screen method Cocaine <300 ng/g No No Mar 27 [Mass/vol informati informati 2017 1:40 ume] in on in on in AM Unspecifi source source ed data data specimen Methadone <300 ng/mL No No Mar 27 informati informati 2017 1:40 [Mass/vol on in on in AM ume] in source source Unspecifi data data ed specimen Opiates <300 ng/mL High This is Mar 27 [Mass/vol an 2017 1:40 ume] in UNCONFIRM AM Unspecifi ED ed result. specimen This result is for medicalpu rposes and/or treatment only. Phencycli <25 ng/mL No No Mar 27 dine informati informati 2017 1:40 [Mass/vol on in on in AM ume] in source source Unspecifi data data ed specimen 11-Hydr POSITIV <50 ng/mL Abnorma This is Mar 27 oxy E l an 2017 delta-9 UNCONFI 1:40 AM RMED tetrahy result. drocann This abinol result [Presen is for ce] in medical Unspeci purpose fied s specime and/or n treatme nt only. Urinalysis dipstick W Reflex Microscopic panel in Urine Observa Value Referen Units Interpr Notes Date tion ce etation Range Appeara SL CLEAR No No No Mar 27 nce of CLOUDY informa informa informa 2016 Urine tion in tion in tion in 1:40 AM source source source data data data Bacteri 1+ O No No No Mar 27 a informa informa informa 2016 [Presen tion in tion in tion in 1:40 AM ce] in source source source Urine data data data sedimen t by Light microsc opy Bilirub NEGATIV NEG No No No Mar 27 in E informa informa informa 2016 [Presen tion in tion in tion in 1:40 AM ce] in source source source Urine data data data by Test strip Erythro 1+ NEG No Abnorma No Mar 27 cytes informa l informa 2016 [Presen tion in tion in 1:40 AM ce] in source source Urine data data Color DK YELLOW No No No Mar 27 of YELLOW informa informa informa 2017 Urine tion in tion in tion in 1:40 AM source source source data data data Glucose NEG No No No Mar 27 [Mass/vol informati informati informati 2017 1:40 ume] in on in on in on in AM Urine by source source source Test data data data strip Ketones NEGATIV NEG mg/dL No No Mar 27 E informa informa 2016 [Presen tion in tion in 1:40 AM ce] in source source Urine data data by Automat ed test strip Mucus 1+ NEG No Abnorma No Mar 27 [Presen informa l informa 2016 ce] in tion in tion in 1:40 AM Urine source source sedimen data data t by Light microsc opy Mucus OCC OCC No No No Mar 27 [Presen informa informa informa 2016 ce] in tion in tion in tion in 1:40 AM Urine source source source sedimen data data data t by Light microsc opy Nitrite NEGATIV NEG No No No Mar 27 E informa informa informa 2016 [Presen tion in tion in tion in 1:40 AM ce] in source source source Urine data data data by Test strip pH of 5.0 - 8.5 No Normal No Mar 27 Urine informati informati 2017 1:40 on in on in AM source source data data Protein NEG mg/dL High No Mar 27 [Mass/vol informati 2017 1:40 ume] in on in AM Urine by source Automated data test strip Erythro 5-10 0 rbc/hpf No No Mar 27 cytes informa informa 2016 [Presen tion in tion in 1:40 AM ce] in source source Urine data data sedimen t by Light microsc opy Specific 1.005 - No Normal No Mar 27 gravity 1.030 informati informati 2017 1:40 of Urine on in on in AM source source data data Epithel 3-5 0 - 5 #/hpf No No Mar 27 ial informa informa 2017 cells.s tion in tion in 1:40 AM quamous source source data data [Presen ce] in Urine sedimen t by Microsc opy high power field Urobili 0.2 NEG E.U./dL No No Mar 27 nogen informa informa 2016 [Presen tion in tion in 1:40 AM ce] in source source Urine data data by Test strip Leukocy [20 O wbc/hpf No No Mar 27 cary wbc/hpf informa informa 2017 [#/volu ; 50 tion in tion in 1:40 AM me] in wbc/hpf source source Urine ] data data Urinalysis dipstick W Reflex Microscopic panel in Urine Observa Value Referen Units Interpr Notes Date tion ce etation Range Appeara SL CLEAR No No No Mar 27 nce of CLOUDY informa informa informa 2016 Urine tion in tion in tion in 1:40 AM source source source data data data Bilirub NEGATIV NEG No No No Mar 27 in E informa informa informa 2016 [Presen tion in tion in tion in 1:40 AM ce] in source source source Urine data data data by Test strip Erythro 1+ NEG No Abnorma No Mar 27 cytes informa l informa 2016 [Presen tion in tion in 1:40 AM ce] in source source Urine data data Color DK YELLOW No No No Mar 27 of YELLOW informa informa informa 2016 Urine tion in tion in tion in 1:40 AM source source source data data data Glucose NEG No No No Mar 27 [Mass/vol informati informati informati 2017 1:40 ume] in on in on in on in AM Urine by source source source Test data data data strip Ketones NEGATIV NEG mg/dL No No Mar 27 E informa informa 2016 [Presen tion in tion in 1:40 AM ce] in source source Urine data data by Automat ed test strip Mucus 1+ NEG No Abnorma No Mar 27 [Presen informa l informa 2016 ce] in tion in tion in 1:40 AM Urine source source sedimen data data t by Light microsc opy Nitrite NEGATIV NEG No No No Mar 27 E informa informa informa 2016 [Presen tion in tion in tion in 1:40 AM ce] in source source source Urine data data data by Test strip pH of 5.0 - 8.5 No Normal No Mar 27 Urine informati informati 2017 1:40 on in on in AM source source data data Protein NEG mg/dL High No Mar 27 [Mass/vol informati 2016 1:40 ume] in on in AM Urine by source Automated data test strip Specific 1.005 - No Normal No Mar 27 gravity 1.030 informati informati 2017 1:40 of Urine on in on in AM source source data data Urobili 0.2 NEG E.U./dL No No Mar 27 nogen informa informa 2016 [Presen tion in tion in 1:40 AM ce] in source source Urine data data by Test strip CBC W Auto Differential panel in Blood Observa Value Referen Units Interpr Notes Date tion ce etation Range Basophils 0 - 0.2 K/MM3 Normal No Mar 27 inform2016 1:30 [#/volume on in AM ] in source Blood by data Automated count Basophils 0.1 - 2.0 % Normal No Mar 27 /100 informati 2016 1:30 leukocyte on in AM s in source Blood by data Automated count Eosinophi 0.0 - 0.4 K/mm3 Normal No Mar 27 ls informati 2016 1:30 [#/volume on in AM ] in source Blood by data Automated count Eosinophi 0.1 - % Normal No Mar 27 ls/100 12.0 informati 2016 1:30 leukocyte on in AM s in source Blood by data Automated count Granulocy 1.8 - 7.8 K/mm3 Normal No Mar 27 cary informati 2016 1:30 [#/volume on in AM ] in source Blood by data Automated count Granulocy 37.0 - % Normal No Mar 27 cary/100 80.0 informati 2016 1:30 leukocyte on in AM s in source Blood by data Automated count Hematocri 37.0 - % Low No Mar 27 t [Volume 47.0 informati 2016 1:30 on in AM Fraction] source of Blood data Hemoglobi 12.2 - g/dL Low No Mar 27 n 16.2 informati 2016 1:30 [Mass/vol on in AM ume] in source Blood data Lymphocyt 0.7 - 4.5 K/mm3 Normal No Mar 27 es informati 2016 1:30 [#/volume on in AM ] in source Unspecifi data ed specimen by Automated count Lymphocyt 10 - 50.0 % Normal No Mar 27 es informati 2016 1:30 [#/volume on in AM ] in source Unspecifi data ed specimen by Automated count Erythrocy 27 - 31.2 pg Normal No Mar 27 te mean informati 2016 1:30 corpuscul on in AM ar source hemoglobi data n [Entitic mass] Erythrocy 31.8 - g/dl Normal No Mar 27 te mean 35.4 informati 2016 1:30 corpuscul on in AM ar source hemoglobi data n concentra tion [Mass/vol ume] by Automated count Erythrocy 82.2 - fl Normal No Mar 27 te mean 97.8 informati 2016 1:30 corpuscul on in AM ar volume source [Entitic data volume] by Automated count Monocytes 0.1 - 1.0 K/mm3 Normal No Mar 27 informati 2016 1:30 [#/volume on in AM ] in source Blood by data Automated count Monocytes 1.7 - 9.3 % Normal No Mar 27 /100 informati 2017 1:30 leukocyte on in AM s in source Blood by data Automated count Platelet 7.4 - fl Normal No Mar 27 mean 10.4 informati 2016 1:30 volume on in AM [Entitic source volume] data in Blood by Automated count Platelets 142 - 424 K/mm3 Normal No Mar 27 informati 2016 1:30 [#/volume on in AM ] in source Blood data Erythrocy 4.2 - 5.4 M/mm3 Low No Mar 27 cary informati 2016 1:30 [#/volume on in AM ] in source Amniotic data fluid Erythrocy 11.5 - % Normal Mar 27 te 17.5 informati 2016 1:30 distribut on in AM ion width source [Entitic data volume] by Automated count Leukocyte 4.8 - K/MM3 High No Mar 27 s 10.8 informati 2016 1:30 [#/volume on in AM ] in source Blood data Erythrocyte sedimentation rate by Westergren method Observa Value Referen Units Interpr Notes Date tion ce etation Range Erythrocy 0 - 20 mm/hr High No Mar 27 te informati 2016 1:30 sedimenta on in AM tion rate source by data Westergre n method Lactate [Moles/volume] in Blood Observa Value Referen Units Interpr Notes Date tion ce etation Range Lactate 0.4 - 2.0 mmol/L Normal No Mar 27 [Moles/vo informati 2016 1:30 lume] in on in AM Blood source data Lactate [Moles/volume] in Blood Observa Value Referen Units Interpr Notes Date ti ce etation Range Lactate 0.4 - 2.0 mmol/L Normal No Mar 26 [Moles/vo informati 2016 6:00 lume] in on in AM Blood source data Comprehensive metabolic 2000 panel in Serum or Plasma Observa Value Referen Units Interpr Notes Date tion ce etation Range Albumin/G 1.1 - 1.8 No Low No Mar 26 lobulin informati informati 2017 6:00 [Mass on in on in AM ratio] in source source Serum or data data Plasma Albumin 3.4 - 5.0 gm/dL Normal No Mar 26 [Mass/vol informati 2016 6:00 ume] in on in AM Serum or source Plasma data Alkaline 46 - 116 U/L Normal No Mar 26 phosphata informati 2017 6:00 se on in AM [Enzymati source c data activity/ volume] in Serum or Plasma Bilirubin 0.2 - 1.0 mg/dL Normal No Mar 26 .total informati 2017 6:00 [Mass/vol on in AM ume] in source Serum or data Plasma Urea 7 - 18 mg/dL Normal No Mar 26 nitrogen informati 2017 6:00 [Mass/vol on in AM ume] in source Serum or data Plasma Calcium 8.5 - mg/dL Normal No Mar 26 [Mass/vol 10.1 informati 2016 6:00 ume] in on in AM Serum or source Plasma data Chloride 98 - 107 mmoL/L Normal No Mar 26 [Moles/vo informati 2016 6:00 lume] in on in AM Serum or source Plasma data Carbon 21.0 - mmoL/L Normal No Mar 26 dioxide, 32.0 informati 2017 6:00 total on in AM [Moles/vo source lume] in data Serum or Plasma Creatinin 0.55 - mg/dL Normal No Mar 26 e 1.02 informati 2017 6:00 [Mass/vol on in AM ume] in source Serum or data Plasma Creatinin 50 - 200 ML/MIN Normal No Mar 26 e renal informati 2016 6:00 clearance on in AM source predicted data by Cockcroft -Gault formula Estimated 59- ML/MIN No REFERENCE Mar 26 informati RANGE: 2017 6:00 glomerula on in >60 AM r source ML/MIN/1. filtratio data 73 SQUARE n rate METERSIf (GF this patient is -A merican, then multiply theresult by 1.210. Globulin 1.3 - 3.2 gm/dL High No Mar 26 [Mass/vol informati 2017 6:00 ume] in on in AM Serum source data Glucose 74 - 106 mg/dL High No Mar 26 [Mass/vol informati 2016 6:00 ume] in on in AM Serum or source Plasma data Potassium 3.5 - 5.1 mmoL/L Normal No Mar 26 inform2016 6:00 [Moles/vo on in AM lume] in source Serum or data Plasma Sodium 136 - 145 mmoL/L Low No Mar 26 [Moles/vo 2016 6:00 lume] in on in AM Serum or source Plasma data Aspartate 15 - 37 U/L Normal No Mar 26 inform2016 6:00 aminotran on in AM sferase source [Enzymati data c activity/ volume] in Serum or Plasma Alanine 12 - 78 U/L Normal No Mar 26 aminotran informati 2016 6:00 sferase on in AM [Enzymati source c data activity/ volume] in Serum or Plasma Protein 6.4 - 8.2 gm/dL High No Mar 26 [Mass/vol informati 2016 6:00 ume] in on in AM Serum or source Plasma data CBC W Auto Differential panel in Blood Observa Value Referen Units Interpr Notes Date tion ce etation Range Basophils 0 - 0.2 K/MM3 Normal No Mar 262016 6:00 [#/volume on in AM ] in source Blood by data Automated count Basophils 0.1 - 2.0 % Normal No Mar 26 / informati 2016 6:00 leukocyte on in AM s in source Blood by data Automated count Eosinophi 0.0 - 0.4 K/mm3 Normal No Mar 26 ls ati 2016 6:00 [#/volume on in AM ] in source Blood by data Automated count Eosinophi 0.1 - % Normal No Mar 26 ls/100 12.0 informati 2016 6:00 leukocyte on in AM s in source Blood by data Automated count Granulocy 1.8 - 7.8 K/mm3 High No Mar 26 cary informati 2016 6:00 [#/volume on in AM ] in source Blood by data Automated count Granulocy 37.0 - % Normal No Mar 26 cary/100 80.0 informati 2016 6:00 leukocyte on in AM s in source Blood by data Automated count Hematocri 37.0 - % Normal Mar 26 t [Volume 47.0 informati 2016 6:00 on in AM Fraction] source of Blood data Hemoglobi 12.2 - g/dL No Mar 26 n 16.2 informati informati 2016 6:00 [Mass/vol on in on in AM ume] in source source Blood data data Lymphocyt 0.7 - 4.5 K/mm3 Normal No Mar 26 es informati 2016 6:00 [#/volume on in AM ] in source Unspecifi data ed specimen by Automated count Lymphocyt 10 - 50.0 % Normal No Mar 26 es informati 2016 6:00 [#/volume on in AM ] in source Unspecifi data ed specimen by Automated count Erythrocy 27 - 31.2 pg Normal No Mar 26 te mean informati 2016 6:00 corpuscul on in AM ar source hemoglobi data n [Entitic mass] Erythrocy 31.8 - g/dl Normal No Mar 26 te mean 35.4 informati 2016 6:00 corpuscul on in AM ar source hemoglobi data n concentra tion [Mass/vol ume] by Automated count Erythrocy 82.2 - fl Normal No Mar 26 te mean 97.8 informati 2016 6:00 corpuscul on in AM ar volume source [Entitic data volume] by Automated count Monocytes 0.1 - 1.0 K/mm3 Normal No Mar 26 informati 2016 6:00 [#/volume on in AM ] in source Blood by data Automated count Monocytes 1.7 - 9.3 % Normal No Mar 26 /100 informati 2017 6:00 leukocyte on in AM s in source Blood by data Automated count Platelet 7.4 - fl Normal No Mar 26 mean 10.4 informati 2016 6:00 volume on in AM [Entitic source volume] data in Blood by Automated count Platelets 142 - 424 K/mm3 No No Mar 26 informati informati 2017 6:00 [#/volume on in on in AM ] in source source Blood data data Erythrocy 4.2 - 5.4 M/mm3 Normal No Mar 26 cary informati 2017 6:00 [#/volume on in AM ] in source Amniotic data fluid Erythrocy 11.5 - % Normal No Mar 26 te 17.5 informati 2016 6:00 distribut on in AM ion width source [Entitic data volume] by Automated count Leukocyte 4.8 - K/MM3 High No Mar 26 s 10.8 informati 2016 6:00 [#/volume on in AM ] in source Blood data Urinalysis dipstick W Reflex Microscopic panel in Urine Observa Value Referen Units Interpr Notes Date tion ce etation Range Appeara CLEAR CLEAR No No No Mar 26 nce of informa informa informa 2017 Urine tion in tion in tion in 5:40 AM source source source data data data Bacteri 1+ O No No No Mar 26 a informa informa informa 2016 [Presen tion in tion in tion in 5:40 AM ce] in source source source Urine data data data sedimen t by Light microsc opy Bilirub NEGATIV NEG No No No Mar 26 in E informa informa informa 2016 [Presen tion in tion in tion in 5:40 AM ce] in source source source Urine data data data by Test strip Erythro 2+ NEG No Abnorma No Mar 26 cytes informa l informa 2016 [Presen tion in tion in 5:40 AM ce] in source source Urine data data Color YELLOW YELLOW No No No Mar 26 of informa informa informa 2016 Urine tion in tion in tion in 5:40 AM source source source data data data Glucose NEG No No No Mar 26 [Mass/vol informati informati informati 2016 5:40 ume] in on in on in on in AM Urine by source source source Test data data data strip Ketones NEGATIV NEG mg/dL No No Mar 26 E informa informa 2016 [Presen tion in tion in 5:40 AM ce] in source source Urine data data by Automat ed test strip Mucus 3+ NEG No Abnorma No Mar 26 [Presen informa l informa 2016 ce] in tion in tion in 5:40 AM Urine source source sedimen data data t by Light microsc opy Mucus OCC OCC No No No Mar 26 [Presen informa informa informa 2016 ce] in tion in tion in tion in 5:40 AM Urine source source source sedimen data data data t by Light microsc opy Nitrite NEGATIV NEG No No No Mar 26 E informa informa informa 2016 [Presen tion in tion in tion in 5:40 AM ce] in source source source Urine data data data by Test strip pH of 5.0 - 8.5 No Normal No Mar 26 Urine informati informati 2017 5:40 on in on in AM source source data data Protein NEG mg/dL High No Mar 26 [Mass/vol informati 2016 5:40 ume] in on in AM Urine by source Automated data test strip Erythro 5-10 0 rbc/hpf No No Mar 26 cytes informa informa 2016 [Presen tion in tion in 5:40 AM ce] in source source Urine data data sedimen t by Light microsc opy Specific 1.005 - No Normal No Mar 26 gravity 1.030 informati informati 2017 5:40 of Urine on in on in AM source source data data Epithel OCC 0 - 5 #/hpf No No Mar 26 ial informa informa 2017 cells.s tion in tion in 5:40 AM quamous source source data data [Presen ce] in Urine sedimen t by Microsc opy high power field Urobili 0.2 NEG E.U./dL No No Mar 26 nogen informa informa 2016 [Presen tion in tion in 5:40 AM ce] in source source Urine data data by Test strip Leukocy [20 O wbc/hpf No No Mar 26 cary wbc/hpf informa informa 2016 [#/volu ; 50 tion in tion in 5:40 AM me] in wbc/hpf source source Urine ] data data Urinalysis dipstick W Reflex Microscopic panel in Urine Observa Value Referen Units Interpr Notes Date tion ce etation Range Appeara CLEAR CLEAR No No No Mar 26 nce of informa informa informa 2016 Urine tion in tion in tion in 5:40 AM source source source data data data Bilirub NEGATIV NEG No No No Mar 26 in E informa informa informa 2016 [Presen tion in tion in tion in 5:40 AM ce] in source source source Urine data data data by Test strip Erythro 2+ NEG No Abnorma No Mar 26 cytes informa l informa 2016 [Presen tion in tion in 5:40 AM ce] in source source Urine data data Color YELLOW YELLOW No No No Mar 26 of informa informa informa 2017 Urine tion in tion in tion in 5:40 AM source source source data data data Glucose NEG No No No Mar 26 [Mass/vol informati informati informati 2017 5:40 ume] in on in on in on in AM Urine by source source source Test data data data strip Ketones NEGATIV NEG mg/dL No No Mar 26 E informa informa 2016 [Presen tion in tion in 5:40 AM ce] in source source Urine data data by Automat ed test strip Mucus 3+ NEG No Abnorma No Mar 26 [Presen informa l informa 2016 ce] in tion in tion in 5:40 AM Urine source source sedimen data data t by Light microsc opy Nitrite NEGATIV NEG No No No Mar 26 E informa informa informa 2016 [Presen tion in tion in tion in 5:40 AM ce] in source source source Urine data data data by Test strip pH of 5.0 - 8.5 No Normal No Mar 26 Urine informati informati 2017 5:40 on in on in AM source source data data Protein NEG mg/dL High No Mar 26 [Mass/vol informati 2017 5:40 ume] in on in AM Urine by source Automated data test strip Specific 1.005 - No Normal No Mar 26 gravity 1.030 informati informati 2016 5:40 of Urine on in on in AM source source data data Urobili 0.2 NEG E.U./dL No No Mar 26 nogen informa informa 2016 [Presen tion in tion in 5:40 AM ce] in source source Urine data data by Test strip Choriogonadotropin.beta subunit [Units] in 24 hour Urine Observa Value Referen Units Interpr Notes Date tion ce etation Range Choriogon NEG No No No Mar 26 adotropin informati informati informati 2017 5:40 .beta on in on in on in AM subunit source source source [Units] data data data in 24 hour Urine
--- OUTSIDE RECORDS SUMMARY | 2017-05-03 10:57 | External Medical Summary Rpt ---
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 [facility] OUTPATIALEXIS 9 9 [facility]ALTH [facility] T VISIT [facility] 10 BANK ACCT MINUTES OFFICE 12481 [facility] OUTPATIEN 8 8 HEALTH CO [facility] T VISIT [facility] 10 BANK ACCT MINUTES OFFICE 80979 SANDRA FLORES OUTPATIEN 8 8 DON R DON R T VISIT 25 MINUTES OFFICE 46926 TIM [facility] 8 8 RAHUL Lewis T VISIT 15 MINUTES HOSPITAL [facility] - 8 8 [facility] OUTPATIEN INC T EMERGENCY 33780 [facility] 8 8 [facility] DEPARTMEN INC T VISIT LIMITED/M INOR PROB OFFICE 04704 SANDRA FLORES OUTPATIEN 8 8 DON R DON R T VISIT 15 MINUTES OFFICE 13410 TIM [facility] 8 8 RAHUL Lewis T VISIT 15 MINUTES OFFICE 18436 SANDRA FLORES OUTPATIEN 8 8 DON R DON R T VISIT 15 MINUTES EMERGENCY 58541 [facility] 8 8 [facility] INC T VISIT HIGH/URGE NT SEVERITY HOSPITAL [facility] - 8 8 [facility] OUTPATI[facility] INC T OFFICE 37226 TIM [facility] 8 8 RAHUL Lewis T VISIT 15 MINUTES OFFICE 90164 KARMA [facility]ECKFORDPATIALEXIS 8 8 RAHUL Lewis T NEW 60 MINUTES OFFICE 22227 [facility] 15 BANK ACCT MINUTES OFFICE 60346 WOMEN'S CALYPSOTIM 8 8 [facility] T [facility]IS[facility] 59470 SANDRA FLORES OUTPATIEN 8 8 DON R DON R T VISIT 15 MINUTES HOSPITAL [facility] - 8 8 [facility] INC T EMERGENCY 12661 BRAULIO LEO, 8 8 [facility] T VISIT PROF SERV MODERATE SEVERITY OFFICE 18559 SANDRA FLORES OUTPATIEN 8 8 DON R DON R T VISIT 15 MINUTES OFFICE 81618 SANDRA FLORES OUTPATIEN 8 8 DON R DON R T VISIT 15 MINUTES
--- OUTSIDE RECORDS SUMMARY | 2017-05-03 10:57 | External Medical Summary Rpt ---
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 [facility] INC T EMERGENCY 16230 [facility] LEO, 8 8 [facility] T VISIT PROF SERV MODERATE SEVERITY OFFICE 82919 [facility] OUTPATIEN 8 8 DON R DON R T VISIT 15 MINUTES OFFICE 70103 [facility] OUTPATIEN 8 8 DON R DON R T VISIT 15 MINUTES
--- OUTSIDE RECORDS SUMMARY | 2017-05-03 11:03 | External Medical Summary Rpt ---
Author Author , ИВАН Ward ИВАН Address Unknown Phone [email or web address] Care Team Providers Care Undercoat Sprayer Name Role Phone LISA J, LISA J Unavailable Unavailable LISA J, LISA J Unavailable Unavailable ALFARIS MOH, ALFARIS Unavailable Unavailable MOH ALFARIS MOH, ALFARIS Unavailable Unavailable MOH FIERRO, NAVYA C, FIERRO, Unavailable Unavailable NAVYA C [facility], Unavailable Unavailable [facility] Unavailable Unavailable PHYS [facility], [...] Unavailable NASIM ENAMORADO, GAMA COX Unavailable Unavailable [facility] Un[facility] [place], [facility] [place] [facility] Un[facility] Un[facility] [place], [facility] Unavailable Unavailable CALLIE RTICE, CALLIE Unavailable Unavailable TRICE CALLIE TRICE, CALLIE Unavailable Unavailable TRICE TYRESE LEDESMA S, Unavailable Unavailable TYRESE LEDESMA S HARPEL SUSY, HARPEL Unavailable Unavailable SUSY EVYPELENDY R, Unavailable Unavailable HARPELSUSYENDY R [facility] Unavailable Unavailable [place], [facility]available INC, [facility] Unavailable Unavailable P[facility], [facility] DOROTHY BETANCOURT, Unavailable Unavailable [...] [facility] Unavailable Unavailable [email or web address] OF AM, [facility] [employer] Unavailable Unavailable ASSOCIATES, [place] [facility] Unavailable Unavailable SERVICES, [facility] Unavailable Unavailable [...] BATEMAN, Unavailable Unavailable RUSCHMAN FRANSICO JIGNA THORPE, JIGAN Unavailable Unavailable FLORENCE JEROME, Unavailable Unavailable FLORENCE RESENDIZ BELKYS OLIVIA, BELKYS Unavailable Unavailable OLIVIA BELKYS OLIVIA, BELKYS Unavailable Unavailable OLIVIA SCIFRES, CHAPARRITA M, Unavailable Unavailable SCIFRES, CHAPARRITA M YOHANNES DAGO, YOAHNNES Unavailable Unavailable DAGO SOKAN BAB, SOKAN BAB Unavailable Unavailable [facility], [facility] FLORES DON, Unavailable Unavailable FLORES DON FLORES DON, Unavailable Unavailable FLORES DON FLORES, DON R, Unavailable Unavailable FLORES, DON R [facility] Unavailable Unavailable SURGERY C, [facility] Unavailable Unavailable #591, [facility] # Unavailable Unavailable [id number], [facility] # [id number] SHERYL YI Unavailable Unavailable SHERYL COLON, SHERYL COLON Unavailable Unavailable WHITE III OUSMANE, WHITE Unavailable Unavailable III ANSON LYONS, Unavailable Unavailable ANSON LEO Continuity of Care Document - 08-20-2007 through 2016 Problems Code Diagnosis DOS Provider Status 6828 CELLULITIS 12-18-2014 [facility] AND ABSCESS PHYSICIANS, OF OTHER [facility] SPECIFIED SITE 7823 EDEMA 02-07-2014 [facility] N EMERGENCY PHYSI 47561 UNSPECIFIED 02-07-2014 [facility] SITE OF N EMERGENCY ANKLE PHYSI SPRAIN AND STRAIN E9288 OTHER 02-07-2014 [facility] PHYSI 5225 PERIAPICAL 01-17-2014 [facility] ABSCESS WITHOUT SINUS 7842 SWELLING 01-17-2014 [facility] MASS OR LUMP IN HEAD AND NECK 6820 CELLULITIS 06-17-2013 CALLIE TRICE AND ABSCESS OF FACE 5990 URINARY 05-28-2013 SHERYL DARLENE TRACT INFECTION SITE NOT SPECIFIED 462 ACUTE 02-20-2013 FLORES PHARYNGITIS DON 4659 ACUTE URIS 02-20-2013 FLORES OF DON UNSPECIFIED SITE 26699 STOMATITIS 11-22-2012 [facility] MUCOSITIS SERVICES UNSPECIFIED 7295 PAIN IN 10-27-2012 FEI SOFT TEAGAN TISSUES OF LIMB 79193 SWELLING OF 10-27-2012 FEI LIMB TEAGAN 65297 OTHER 10-27-2012 FEI DISORDERS TEAGAN OF SOFT TISSUE 8449 SPRAIN&STRA 10-27-2012 [facility] IN OF [facility] UNSPECIFIED INC SITE OF KNEE&LEG E9068 OTHER 10-27-2012 FEI SPECIFIED TEAGAN INJURY CAUSED BY ANIMAL V692 PROBLEMS 10-21-2012 COMBINED RELATED TO PHYSICIANS HIGH-RISK LA SEXUAL BEHAVIOR 6264 IRREGULAR 10-20-2012 DIANA CARLOTA MENSTRUAL CYCLE V2542 SURVEILLANC 10-20-2012 DIANA CARLOTA E PREV PRSC INTRAUTERN CNTRACPT DEVC 7256 UNSPECIFIED 03-17-2012 ANA M FRANSICO BACKACHE V065 NEED 03-17-2012 ANA M FRANSICO PROPHYLACTI C VACCINATION W/TETANUS-D IPHTH V066 NEED PROPH 03-17-2012 ANA M FRANSICO VACCINATION W/STREP PNEUMONE&[place] U [address] ONYCHIA AND 03-11-2012 [facility] PARONYCHIA EMERGENCY OF TOE PHYS PSC 6262 EXCESSIVE 10-17-2011 SARAH RAN OR FREQUENT MENSTRUATIO N 25482 MATERNAL 10-17-2011 SARAH RAN MENTAL D/O COND/COMPLI CATION V242 ROUTINE 10-17-2011 PATHOLOGY & CYTOLOGY FOLLOW-UP LAB V745 SCREENING 10-17-2011 PATHOLOGY & EXAMINATION CYTOLOGY FOR LAB VENEREAL DISEASE 6159 UNSPECIFIED 08-26-2011 [facility] DISEASE OF UTERUS 09613 ABN MAT 08-26-2011 [facility] GLUCOSE JIN & TOLERANCE DUBILIER COMPL PG CB/PP UNS EOC 97291 ABNORMAL 08-26-2011 [facility] MATERNAL [facility] GLU[facility]SE [facility] TOLERANCE W/DELIVERY 60127 TOBACCO USE 08-26-2011 [facility] D/O COMP [facility] PG HOSP [facility]IL[facility]/ PP DELIVERED 60136 08-26-2011 YOHANNES DAGO DISTRESS AFFECT MANAGEMENT MOTH DELIVERED 93028 ABN FETL 08-26-2011 [facility] HRT [facility] RATE/RHYTHM HOSP DELIV W/WO ANTPRTM COND 41205 PUERPERAL 08-26-2011 [facility] ENDOMETRITI [facility] S DELIVERED HOSP W/MEN PP COMP V270 OUTCOME OF 08-26-2011 [facility] DELIVERY [facility] SINGLE HOSP LIVEBORN 49954 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 ANTEPARTUM 71206 ABNORMAL 08-22-2011 [facility] BAKER MATERNAL GLUCOSE TOLERANCE ANTEPARTUM 52327 TOB USE D/O 08-22-2011 [facility] BAKER COMP PG /PP ANTEPARTM COND/COMP 82568 POOR 08-22-2011 [facility] BAKER GROWTH MGMT MOTH ANTPRTM COND/COMP 69387 THREATENED 08-15-2011 [facility] BAKER PREMATURE LABOR ANTEPARTUM 95463 EDEMA OR 2011 MARIA L Ko EXCESSIVE WEIGHT GAIN ANTEPARTUM V221 SUPERVISION 2011 MEDICAL OF OTHER DIAGNOSTIC [facility] V286 SCREENING 2011 MEDICAL OF DIAGNOSTIC STREPTOCOCC [place] [facility] [place] [address] DIAB W/O 08-01-2011 BELK[facility] BAKER COMP TYPE II/UNS NOT STATED UNCNTRL 49963 MATERNAL 08-01-2011 [facility] BAKER DIABETES MELLITUS ANTEPARTUM V5867 LONG-TERM 08-01-2011 BEL[facility] BAKER USE OF INSULIN 81288 DECR 07-18-2011 [facility] BAKER MOVMNTS MGMT MOTH ANTPRTM COND/COMP 29365 INFECTIONS 07-11-2011 BELKYS BAKER OF GENITOURINA RY TRACT ANTEPARTUM V653 DIETARY 06-28-2011 [facility] SURVEILLANC [facility] E AND HOSP COUNSELING V851 BODY MASS 06-28-2011 [facility] INDEX [facility] 98216 LATE 05-16-2011 AFUA VOMITING OF FRETTED INSTRUMENT INSPECTOR ASSOC[facility]ATES ANTEPARTUM V2881 ENCOUNTER 04-18-2011 AF[facility] FOR FRETTED INSTRUMENT INSPECTOR ANATOMIC ASSOCIATES SURVEY V220 SUPERVISION 03-21-2011 LAB [place] [address] UNSPECIFIED 02-13-2011 [facility] DENTAL [facility] CARIES INC 5259 UNSPECIFIED 02-13-2011 [facility] DISORDER EMERGENCY TEETH&SUPPO SERVICES RTING STRUCTURES 59211 OTH CURRENT 02-13-2011 [facility] KIRKPATRICK EMERGENCY CLASSIFIABL SERVICES E ELSW ANTPRTM 6164 OTHER 02-12-2011 [place] ABSCESS OF FRETTED INSTRUMENT INSPECTOR VULVA ASSOCIATES 6238 OTHER 02-12-2011 LAB D[facility]LY[facility] SPECIFIED AMERIC NONINFLAMMA HOLDING TORY DISORDER VAGINA 6235 LEUKORRHEA 01-22-2011 PATHOLOGY & NOT CYTOLOGY SPECIFIED LAB INFECTIVE 23380 MILD 01-22-2011 [place] HYPEREMESIS FRETTED INSTRUMENT INSPECTOR GRAVIDARUM ASSOCIATES ANTEPARTUM 5206 DISTURBANCE 10-16-2010 THE IMPLANT S IN TOOTH & ORAL ERUPTION SURGERY C V7284 UNSPECIFIED 10-16-2010 COMBINED PHYSICIANS PRE-OPERATI LA VE EXAMINATION 40551 REFLUX 09-11-2010 FLORES ESOPHAGITIS DON 7821 RASH AND 09-11-2010 FLORES OTHER DON NONSPECIFIC SKIN ERUPTION 11717 OTHER 03-07-2010 FLOR[facility] SPECIFIED DON DISORDERS OF URINARY TRACT 7881 DYSURIA 03-07-2010 FLORES DON 3670 HYPERMETROP 02-24-2010 NE IA VISION V259 UNSPECIFIED 02-17-2010 [facility] PCC VE MANAGEMENT 6160 CERVICITIS 01-17-2010 PATHOLOGY & AND CYTOLOGY ENDOCERVICI LAB TIS V7231 ROUTINE 01-17-2010 [facility] 78233 SHORTNESS 12-20-2009 [facility] 9948 ELECTROCUTI 12-20-2009 B[facility]IO ON&NONFATAL [facility] ELECTRIC PROF SERV CURRENT 4618 OTHER ACUTE 06-27-2009 FLORES, [place] [address] ABDOMINAL 02-07-2009 FLORES, PAIN RIGHT DON R LOWER QUADRANT V069 NEED PROPH 02-07-2009 [facility] VACCINATION HEALTH W/UNSPEC [facility] COMB BANK ACCT VACCINE 7061 OTHER ACNE 10-01-2008 [facility] V2549 SURVEILLANC 10-01-2008 [facility] [address]2907 HEMATURIA 07-07-2008 FLORES, UNSPECIFIED DON R 7880 [...] 7011 ACQUIRED 02-11-2008 FLORES, [place]ERATODERMA [place] R [address] OTHER ACUTE 02-10-2008 [facility] POSTOPERATI INC VE PAIN 632 MISSED 02-08-2008 PATHOLOGY & CYTOLOGY LAB 72322 INCOMPLETE 02-08-2008 [place] SPONTANEOUS MEDICAL AB WITHOUT IMAGING MENTION ASSOCIATES COMP 30873 OTHER 01-13-2008 ENDY Lewis SPECIFED RAHUL CHAVEZ [...] OTITIS DON R MEDIA 6253 DYSMENORRHE 11-04-2007 [facility] PROF SERV 6259 UNSPEC 11-04-2007 FLORES, SYMPTOM DON R ASSOC W/FEMALE GENITAL ORGANS 40021 ABDOMINAL 11-04-2007 [place] PAIN, MEDICAL UNSPECIFIED IMAGING SITE ASSOCIATES 88616 CHEST PAIN 08-25-2007 FLORES, UNSPECIFIED DON R Medications Na ND Rx Da Fi Fi Am Da Di Ph RX Ph St me C No te ll ll ou ys ag ar # ys at rm s nt no ma ic us Or Da si cy ia de te s n re d VA 37 02 10 5 30 30 [...] 20 20 RT 7 70 10 10 NC 5 PH CH AR AE MA L CY S # 10 05 91 CE 68 06 06 0 21 7 WA 70 GA Ac PH 18 -1 -1 .0 L- 74 IN ti AL 00 3 00 MA 51 EY ve EX 12 20 20 RT 9 IN 20 10 10 NC 1 PH CH 50 AR AE 0 [...] 20 20 RT 9 00 08 08 NC 1 PH CH AR AE MA L CY S #5 91 00 07 08 00 8. 2 WA 44 GA Ac 09 -1 -0 00 L- 69 IN ti 30 5- 1- 0 MA 53 EY ve 89 20 20 RT 5 00 08 08 NC 5 PH CH AR AE MA L [...] Procedure DOS Code Location Performer Comment INCISION 43505 CALLIE LEDESMA & 3 TRICE TRICE DRAINAGE ABSCESS SIMPLE/SI NGLE IAADIADOO 29006 SANDRA FLORES 3 DON DON STREPTOCO CCUS GROUP A RADIOLOGI 69092 [facility] RAMSEY C 3 [facility] EXAMINATI INC INC ON TIBIA & FIBULA 2 VIEWS APPLICATI 44168 [facility] RAMSEY ON LONG 3 [facility] LEG INC INC SPLINT THIGH ANKLE/TOE S CRTCHS E0114 [facility] UNDARM 3 OTH THAN WOOD PAIR PAD TIP&HNDGR IP RADEX 59472 [facility]IO RAMSEY ANKLE 3 [facility] COMPLETE INC INC MINIMUM 3 VIEWS ANTIBODY 43831 COMBINED COMBINED CHLAMYDIA 3 PHYSICIAN PHYSICIAN S LA S LA CUL BACT 70039 COMBINED COMBINED XCPT 3 PHYSICIAN PHYSICIAN URINE S LA S LA BLOOD/STO OL AEROBIC ISOL HEPATITIS 86213 [facility] RAMSEY B CORE 3 [facility] ANTIBODY INC INC HBCAB TOTAL HEPATITIS 10709 B[facility]IO RAMSEY B SURF 3 [facility] [place] [address] BRAULIO RAMSEY HEPATITIS 3 [facility] B INC INC SURFACE ANTIGEN HEPATITIS 18287 BRAULIO RAMSEY A 3 [facility] ANTIBODY INC INC HAAB ANTIBODY 29635 BRAULIO RAMSEY HERPES 3 [facility] SMPLX INC INC TYPE 1 ANTIBODY 37409 BRAULIO RAMSEY VIRUS NOT 3 [facility] INC INC ELSEWHERE SPECIFIFE D HEPATITIS 99036 B[facility]IO RAMSEY C 3 [facility] ANTIBODY INC INC INFLUENZA 14900 ANA M ANA M VACC 2 FRANSICO FRANSICO IIV3 SPLIT VIRUS PRSRV FREE ID INCISION 60420 [facility] RUSCHMAN & 2 EMERGENCY FRANSICO DRAINAGE PHYS PSC ABSCESS SIMPLE/SI NGLE IADNA 09998 PATHOLOGY PICKLESIM NEISSERIA 2 & ER JR JAIMEE CYTOLOGY GONORRHOE LAB AE AMPLIFIED PROBE TQ CYTP C/V 47499 PATHOLOGY PICKLESIM AUTO THIN 2 & ER JR JAIMEE LYR CYTOLOGY PREPJ SCR LAB MNL RESCR PHYS IADNA 89025 PATHOLOGY PICKLESIM CHLAMYDIA 2 & ER JR JAIMEE CYTOLOGY TRACHOMAT LAB IS AMPLIFIED PROBE TQ LOW 741 [facility] CERVICAL 2 [facility] [place] [address] DEVONTE MALLOY KENNY SURG 2 JIN & PATHOLOGY EDDIE GROSS&TRICE ROSCOPIC EXAM 06115 [facility] BELKYS DELIVERY 2 OLIVIA OLIVIA ONLY ANESTHESI 30508 YOHANNES WHITE III A 2 DAGO OUSMANE DELIVERY ONLY US PREG 74487 [facility] BELKYS UTERUS 2 OLIVIA OLIVIA REAL TIME F/U TRNSABDL PER FETUS IADNA 02909 MEDICAL MEDICAL STREPTOCO 2 DIAGNOSTI DIAGNOSTI CCUS C LAB LLC C LAB LLC GROUP B AMPLIFIED PROBE TQ US PREG 53997 BELK[facility] BELKYS UTERUS 1 OLIVIA OLIVIA REAL TIME F/U TRNSABDL PER FETUS SMR PRIM 62175 BEL[facility] BELKYS SRC WET 1 OLIVIA OLIVIA MOUNT NFCT AGT DIAB G0109 [facility] SELF-MGMT 1 [facility] TRN [facility]VC [facility] HOSP GROUP SESSION PER 30 MIN GLUCOSE 45685 LAB [facility] LAB DARLYN TOLERANCE 1 AMERIC AMERIC TEST GTT HOLDINGS HOLDING 3 SPECIMENS GLUCOSE 36811 LAB [facility] LAB D[facility] TOLERANCE 1 AMERIC AMERIC EA ADDL HOLDINGS HOLDING BEYOND 3 SPECIMENS BLOOD 65152 LAB [facility] LAB D[facility] COUNT 1 AMERIC AMERIC COMPLETE HOLDINGS HOLDING AUTOMATED ANTIBODY 25826 LAB [facility] LAB D[facility] SCREEN 1 AMERIC AMERIC RBC EACH HOLDINGS HOLDING SERUM TECHNIQUE GLUCOSE 31389 LAB [facility] LAB DARLYN POST 1 AMERIC AMERIC GLUCOSE [place] PREG 55225 [place] BELKYS UTERUS 1 FRETTED INSTRUMENT INSPECTOR OLIVIA AFTER ASSOCIATE TRIMEST S GESTATION ALPHA-FET 71491 LAB COR LAB COR OPROTEIN 1 YSABEL YSAB[place] [address] LAB COR LAB COR ESTRIOL 1 YSABEL YSABEL HOLDING [place] GONADOTRO 89497 LAB COR LAB COR PIN 1 YSABEL YSABEL CHORIONIC HOLDING [place] [address] LAB COR LAB COR 1 YSABEL YSABEL HOLDING [place] PREG 47252 [place] BELKYS UTERUS 1 FRETTED INSTRUMENT INSPECTOR OLIVIA REAL TIME ASSOCIATE [place] [address] LAB [facility] LAB DARLY[facility] NON-IMMUN 1 AMERIC AMERIC OLOGIC HOLDING HOLDING OTH/THN CYTOPATHI C IADNA 73938 PATHOLOGY PATHOLOGY NEISSERIA 1 & & CYTOLOGY CYTOLOGY GONORRHOE LAB LAB AE AMPLIFIED PROBE TQ CYTP C/V 31761 PATHOLOGY PATHOLOGY AUTO THIN 1 & & LYR CYTOLOGY CYTOLOGY PREPJ SCR LAB LAB MNL RESCR PHYS US PREG 65812 [place] [facility] UTERUS 1 FRETTED INSTRUMENT INSPECTOR OLIVIA REAL TIME ASSOCIATE W/IMAGE S DCMTN TRANSVAG IADNA 38763 PATHOLOGY PATHOLOGY CHLAMYDIA 1 & & CYTOLOGY CYTOLOGY TRACHOMAT LAB LAB IS AMPLIFIED PROBE TQ DRUG SCR G0434 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 NOT 1 Y Y CHROMATOG CORPORATI CORPORATI RAPHIC; ON OF AM ON OF AM ANY NUMBER PT ENC ORTHOPANT 03935 THE BAUDILIO OGRAM 1 IMPLANT & DON ORAL SURGERY C GONADOTRO 66459 COMBINED COMBINED PIN 1 PHYSICIAN PHYSICIAN GRIFFIN S LA S LA QUANTITAT LUIZ OPHTH 19674 NE GONG MEDICAL 0 VISION CHAPARRITA Angelo XM&EVAL COMPRHNSV ESTAB PT 1/> REMOVAL 85494 [facility] IMPLANTAB 0 PHYSICIAN SUSY CONTRERAS GROUP CONTRACEP PCC TIVE CAPSULES IADNA 81703 PATHOLOGY PATHOLOGY CHLAMYDIA 0 & & CYTOLOGY CYTOLOGY TRACHOMAT LAB LAB IS AMPLIFIED PROBE TQ IADNA 68054 PATHOLOGY PATHOLOGY NEISSERIA 0 & & CYTOLOGY CYTOLOGY GONORRHOE LAB LAB AE AMPLIFIED PROBE TQ CYTP C/V 47965 PATHOLOGY PATHOLOGY AUTO THIN 0 & & LYR CYTOLOGY CYTOLOGY PREPJ SCR LAB LAB MNL RESCR PHYS ECG 88742 [facility] RAMSEY ROUTINE 0 [facility] ECG INC INC W/LEAST 12 LDS TRCG ONLY W/O I&R RADIOLOGI 69014 [place] Carlos ENAMORADO EXAM 0 MEDICAL NASIM CHEST 2 IMAGING VIEWS ASSOCIATE FRONTAL&L S ATERAL ECG 70670 BRAULIO WE[place] ROUTINE 0 [facility] W/LEAST PROF SERV 12 LDS I&R ONLY OPHTH 82445 NE [facility]ICAL 9 VISION CHAPARRITA M XM&EVAL COMPRHNSV ESTAB PT 1/> IM ADM 71283 [facility] PRQ ID 9 HEALTH CO HEALTH SUBQ/IM [facility] NJXS 1 BANK ACCT VACCINE MPSV4 87756 [facility] VACCINE 9 HEALTH CO HEALTH GROUPS [facility] ACYW-135 BANK ACCT SUBQ USE IM ADM 81065 [facility] PRQ ID 9 [facility] HEALTH SUBQ/IM [facility] NJXS 1 BANK ACCT VACCINE IM ADM 13370 [facility] B[facility]IO PRQ ID 8 [facility] HEALTH SUBQ/IM [facility] NJXS 1 BANK ACCT VACCINE URINE 37906 [facility] RAMSEY 8 [facility] TEST INC INC VISUAL COLOR CMPRSN METHS CULTURE 90804 [facility] RAMSEY BACTERIAL 8 [facility] INC INC QUANTTATI VE COLONY COUNT URINE BLOOD 71702 [facility] RAMSEY COUNT 8 [facility] COMPLETE INC INC AUTO&AUTO DIFRNTL WBC URNLS DIP 17389 [facility] RAMSEY 8 [facility] STICK/TAB INC INC LET REAGENT AUTO MICROSCOP Y US PREG 92515 [facility], UTERUS 8 MEDICAL NASIM REAL TIME IMAGING W/IMAGE ASSOCIATE DCMTN S TRANSVAG ANESTHESI 09292 [facility] ANESTH CJ FORBES OF THE E/MISSED [facility] [place] [address] PATHOLOGY PATHOLOGY SURG 8 & & PATHOLOGY CYTOLOGY CYTOLOGY LAB LAB GROSS&TRICE ROSCOPIC EXAM US PREG 03796 ENDY Lewis HARJOSE CL, UTERUS 8 MARIMARL MD ENDY Lewis REAL TIME W/IMAGE DCMTN TRANSVAG IADNA 64364 [facility] [place], HERPES 8 [place] INC DOROTHY D SOMPLX VIRUS AMPLIFIED PROBE TQ IADNA 41160 [facility] [place], NEISSERIA 8 [place] INC DOROTHY D GONORRHOE AE AMPLIFIED PROBE TQ IADNA 48243 [facility] [place], CHLAMYDIA 8 [place] INC DOROTHY D TRACHOMAT IS AMPLIFIED PROBE TQ CYTP 16114 [facility] [place], CERV/VAG 8 [place] INC DOROTHY D AUTO THIN LAYER PREP MNL SCREEN URINE 83958 [facility]ULIO 8 [facility] HEALTH TEST [facility] VISUAL BANK ACCT COLOR CMPRSN METHS GONADOTRO 99975 COMBINED COMBINED PIN 8 PHYSICIAN PHYSICIAN CHORIONIC S LAB S LAB QUANTITAT LUIZ URNLS DIP 86070 BRAULIO RAMSEY 8 [facility] STICK/TAB INC INC LET REAGENT AUTO MICROSCOP Y BLOOD 80933 B[facility]IO RAMSEY COUNT 8 [facility] COMPLETE INC INC AUTO&[place] [address] PAULO FEI, ABDOMEN 8 MEDICAL NASIM W/O IMAGING CONTRAST ASSOCIATE MATERIAL S URINE 38574 BRAULIO RAMSEY 8 [facility] TEST INC INC VISUAL COLOR CMPRSN METHS BASIC 67409 B[facility]IO RAMSEY METABOLIC 8 [facility] PANEL INC INC CALCIUM TOTAL CT PELVIS 53366 PAULO FEI, W/O 8 MEDICAL NASIM CONTRAST IMAGING MATERIAL ASSOCIATE S 3D 35197 BRAULIO RAMSEY RENDERING 8 [facility] INC INC W/INTERP& POSTPROC DIFF WORK STATION CULTURE 30534 B[facility]IO RAMSEY BACTERIAL 8 [facility] INC INC QUANTTATI VE COLONY COUNT URINE RADEX 53243 SANDRA, SANDRA, RIBS UNI 8 DON R DON R W/POSTERO ANT CH MINIMUM 3 VIEWS Encounters Encounter Start End Date Code Location Performer Type Date EMERGENCY 91754 BRI LEDESMA 5 5 PHYSICIAN TRICE DEPARTMEN S, PLLC T VISIT MODERATE SEVERITY EMERGENCY 19704 [facility] [address] [facility] DEPARTMEN EMERGENCY T VISIT PHYSI MODERATE SEVERITY EMERGENCY 41843 [facility] 4 4 [facility] DEPARTMEN T VISIT MODERATE SEVERITY EMERGENCY 31108 CALLIE LEDESMA 3 3 TRICE TRICE DEPARTMEN T VISIT HIGH/URGE NT SEVERITY EMERGENCY 82751 SHERYL COLON 3 3 DEPARTMEN T VISIT MODERATE SEVERITY OFFICE 90141 SANDRA FLORES OUTPATIEN 3 3 DON DON T VISIT 15 MINUTES EMERGENCY 05350 MYNOR JAMESON 3 3 EMERGENCY DEPARTMEN SERVICES T VISIT MODERATE SEVERITY EMERGENCY 35463 [facility] 3 3 [facility] DEPARTMEN INC T VISIT LOW/MODER SEVERITY HOSPITAL [facility] - 3 3 [facility] OUTPATIEN INC T EMERGENCY 31151 CALLIE CALLIE 3 3 TRICE TRICE DEPARTMEN T VISIT HIGH/URGE NT SEVERITY EMERGENCY 40540 B[facility]IO 3 3 [facility] DEPARTMEN INC T VISIT MODERATE SEVERITY HOSPITAL [facility] - 3 3 [facility] OUTPATIEN INC T OFFICE 83118 DIANA ORTIZ OUTPATIEN 3 3 [place] CARLOTA T VISIT 25 MINUTES HOSPITAL [facility] - 3 3 [facility] OUTPATIEN INC T OFFICE 16572 ANA M VIRAMONTES OUTPATIEN 2 2 FRANSICO FRANSICO T NEW 30 MINUTES EMERGENCY 62551 [facility] 2 2 EMERGENCY FRANSICO DEPARTMEN PHYS PSC T VISIT HIGH/URGE NT SEVERITY OFFICE 78235 [facility] BEKLYS OUTPATIEN 2 2 OLIVIA OLIVIA T VISIT 15 MINUTES OFFICE 80730 SARAH SINHA OUTPATIEN 2 2 T VISIT 15 MINUTES OFFICE 69093 [facility] BELKYS OUTPATIEN 2 2 OLIVIA OLIVIA T VISIT 15 MINUTES HOSPITAL [facility] - 2 2 [facility] OFFICE 56225 [facility] BELKYS OUTPATIEN 2 2 OLIVIA OLIVIA T VISIT 15 MINUTES OFFICE 10723 [facility] BELKYS OUTPATIEN 2 2 OLIVIA OLIVIA T VISIT 15 MINUTES OFFICE 81982 MARIA L Ko OUTPATIEN 2 2 T VISIT 15 MINUTES OFFICE 74280 [facility] BELKYS OUTPATIEN 2 2 OLIVIA OLIVIA T VISIT 15 MINUTES OFFICE 64499 [facility] BELKYS OUTPATIEN 1 1 OLIVIA OLIVIA T VISIT 15 MINUTES OFFICE 10976 [facility] BELKYS OUTPATIEN 1 1 OLIVIA OLIVIA T VISIT 15 MINUTES OFFICE 78355 [facility] BELKYS OUTPATIEN 1 1 OLIVIA OLIVIA T VISIT 15 MINUTES HOSPITAL [facility] - 1 1 [facility] T OFFICE 80216 SARAH SMITH RAN OUTPATIEN 1 1 T VISIT 15 MINUTES OFFICE 05097 AF[facility] BENITO OUTPATIEN 1 1 FRETTED INSTRUMENT INSPECTOR DEN T VISIT ASSOCIATE 15 S MINUTES OFFICE 65172 AFUA BENITO OUTPATIEN 1 1 FRETTED INSTRUMENT INSPECTOR DEN T VISIT ASSOCIATE 15 S MINUTES OFFICE 00734 AFUA BENITO OUTPATIEN 1 1 FRETTED INSTRUMENT INSPECTOR DEN T VISIT ASSOCIATE 15 S MINUTES OFFICE 59375 AFUA BENITO OUTPATIEN 1 1 FRETTED INSTRUMENT INSPECTOR DEN T VISIT ASSOCIATE 15 S MINUTES EMERGENCY 74618 MYNOR LEDESMA 1 1 EMERGENCY TRICE DEPARTMEN SERVICES T VISIT HIGH/URGE NT SEVERITY EMERGENCY 27691 [facility] 1 1 [facility] DEPARTMEN INC T VISIT LIMITED/M INOR [facility] - 1 1 [facility] OUTPATIEN INC T OFFICE 52874 AFUA SLATER OUTPATIEN 1 1 FRETTED INSTRUMENT INSPECTOR T VISIT ASSOCIATE 15 S MINUTES OFFICE 13981 AFUA RIZVI OUTPATIEN 1 1 FRETTED INSTRUMENT INSPECTOR OLIVIA T NEW 45 ASSOCIATE MINUTES S OFFICE 94661 THE BAUDILIO OUTPATIEN 1 1 IMPLANT & DON T NEW 20 ORAL MINUTES SURGERY C OFFICE 77789 SANDRA FLORES OUTPATIEN 1 1 DON DON T VISIT 15 MINUTES OFFICE 86509 SANDRA FLORES OUTPATIEN 0 0 DON DON T VISIT 15 MINUTES PERIODIC 33866 WOMEN'S ORTIZ, PREVENTIV 0 0 HEALTH REID J E MED EST [facility] - 0 0 [facility] OUTPATIEN INC T EMERGENCY 27876 [facility] 0 0 [facility] DEPARTMEN INC T VISIT LOW/MODER SEVERITY EMERGENCY 49912 MYNOR LEDESMA, 0 0 EMERGENCY [facility] SERVICES T VISIT MODERATE ASSOCIATE SEVERITY S EMERGENCY 07258 MYNOR LEDESMA, DEPT 0 0 EMERGENCY [facility] VISIT SERVICES HIGH SEVERITY& ASSOCIATE THREAT S [facility] - 0 0 [facility] OUTPATIEN INC T EMERGENCY 32576 [facility] 0 0 [facility] DEPARTMEN INC T VISIT LOW/MODER SEVERITY OFFICE 40233 SANDRA FLORES OUTPATIEN 9 9 DON R DON R T VISIT 15 MINUTES OFFICE 04776 SANDRA FLORES OUTPATIEN 9 9 DON R DON R T VISIT 15 MINUTES OFFICE 03286 [facility] OUTFRANCISEN 9 9 [facility] 10 BANK ACCT MINUTES OFFICE 78943 WOMEN'S ORTIZTIM Pinto 9 9 HEALTH REID J T 30 [facility] OFFICE 76761 [facility] OUTPATIEN 9 9 [facility] 10 BANK ACCT MINUTES OFFICE 25759 [facility] OUTPATIEN 8 8 [facility] 10 BANK ACCT MINUTES OFFICE 81186 SANDRA FLORES OUTPATIEN 8 8 DON R DON R T VISIT 25 MINUTES OFFICE 29571 TIM [facility] 8 8 RAHUL Lewis T VISIT 15 MINUTES HOSPITAL [facility] - 8 8 [facility] OUTPATIEN INC T EMERGENCY 25176 [facility] 8 8 [facility] DEPARTMEN INC T VISIT LIMITED/M INOR PROB OFFICE 23647 SANDRA FLORES OUTPATIEN 8 8 DON R DON R T VISIT 15 MINUTES OFFICE 15550 TIM [facility] 8 8 RAHUL Lewis T VISIT 15 MINUTES OFFICE 19751 SANDRA FLORES OUTPATIEN 8 8 DON R DON R T VISIT 15 MINUTES HOSPITAL [facility] - 8 8 [facility] OUTPATIEN INC T EMERGENCY 07696 [facility] 8 8 [facility] DEPARTMEN INC T VISIT HIGH/URGE NT SEVERITY OFFICE 36306 TIM [facility] 8 8 RAHUL SCHUMACHER R T VISIT 15 MINUTES OFFICE 82450 ENDY KAY OUTPATIALEXIS 8 8 RAHUL Lewis T NEW 60 MINUTES OFFICE 99800 [facility] 8 8 [facility] T VISIT [facility] 15 BANK ACCT MINUTES OFFICE 30429 [facility] 8 8 [facility] T VISIT CLINIC OF 15 MINUTES [facility] [address] [facility] LEO, 8 8 [facility] VISIT PROF [facility] - [facility] T OFFICE [id number] [facility] 8 8 DON R DON R T VISIT 15 MINUTES OFFICE 11804 [facility] 8 8 DON R DON R T VISIT 15 MINUTES OFFICE [id number] [facility] OUT[facility] 8 8 DON R DON R T VISIT 15 MINUTES
--- OUTSIDE RECORDS SUMMARY | 2017-05-03 11:03 | External Medical Summary Rpt ---
Author Author , ИВАН Ward ИВАН Address Unknown Phone [email or web address] Team Providers Care Vending Route Driver Name Role Phone LISA J, LISA J Unavailable Unavailable LISA J, LISA J Unavailable Unavailable ALFARIS MOH, ALFARIS Unavailable Unavailable MOH ALFARIS MOH, ALFARIS Unavailable Unavailable MOH FIERRO, NAVYA C, FIERRO, Unavailable Unavailable NAVYA C [facility], Unavailable Unavailable [facility] Unavailable Unavailable PHYS [facility], [...] Unavailable NASIM ENAMORADO, GAMA COX Unavailable Unavailable [facility] [place] [facility] [place] [facility] Un[place] Un[place] [facility] [facility], [facility] Unavailable Unavailable CALLIE TRICE, CALLIE Unavailable Unavailable TRICE CALLIE TRICE, CALLIE Unavailable Unavailable TRICE TYRESE LEDESMA S, Unavailable Unavailable TYRESE LEDESMA S HARPEL SUSY, HARPEL Unavailable Unavailable SUYS EVYPELENDY R, Unavailable Unavailable HARPELSUSYENDY R [facility] Unavailable Unavailable [place] PLATA, [facility] Unavailable Unavailable INC, [facility]available Unavailable PCC, [facility] P[facility] DOROTHY BETANCOURT, Unavailable [...] [facility] Unavailable Unavailable [employer] OF AM, [facility] LEAD Unavailable Unavailable ASSOCIATES, [facility] Unavailable Unavailable SERVICES, [facility] CJ WESTFALL JR Unavailable Unavailable [...] Unavailable [facility] Un[facility] Unavailable [facility], [facility], [facility] FLORES DON, Unavailable Unavailable FLORES DON FLORES DON, Unavailable Unavailable FLORES DON FLORES, DON R, Unavailable Unavailable FLORES, DON R [facility] Unavailable Unavailable SURGERY C, [facility] Unavailable Unavailable #[phone], [facility] # Unavailable Unavailable [id number], [facility] # [id number] SHERYL YI Unavailable Unavailable SHERYL COLON, SHERYL COLON Unavailable Unavailable WHITE III OUSMANE, WHITE Unavailable Unavailable III ANSON LYONS, Unavailable Unavailable ANSON LEO Continuity of Care Document - 08-20-2007 through 2016 Problems Code Diagnosis DOS Provider Status 6828 CELLULITIS 12-18-2014 BRI AND ABSCESS PHYSICIANS, OF OTHER [facility] SPECIFIED SITE 7823 EDEMA 02-07-2014 [facility] N EMERGENCY PHYSI 06032 UNSPECIFIED 02-07-2014 [facility] SITE OF N EMERGENCY ANKLE PHYSI SPRAIN AND STRAIN E9288 OTHER 02-07-2014 [facility] EMERGENCY PHYSI 5225 PERIAPICAL 01-17-2014 [facility] ABSCESS WITHOUT SINUS 7842 SWELLING 01-17-2014 [facility] MASS OR LUMP IN HEAD AND NECK 6820 CELLULITIS 06-17-2013 CALLIE TRICE AND ABSCESS OF FACE 5990 URINARY 05-28-2013 SHERYL DARLENE TRACT INFECTION SITE NOT SPECIFIED 462 ACUTE 02-20-2013 FLORES PHARYNGITIS DON 4659 ACUTE URIS 02-20-2013 FLORES OF DON UNSPECIFIED SITE 77660 STOMATITIS 11-22-2012 [facility] UNSPECIFIED 7295 PAIN IN 10-27-2012 FEI SOFT TEAGAN TISSUES OF LIMB 94784 SWELLING OF 10-27-2012 FEI LIMB TEAGAN 92726 OTHER 10-27-2012 FEI DISORDERS TEAGAN OF SOFT TISSUE 8449 SPRAIN&STRA 10-27-2012 B[facility]IO IN OF [facility] UNSPECIFIED INC SITE OF KNEE&LEG E9068 OTHER 10-27-2012 FEI SPECIFIED TEAGAN INJURY CAUSED BY ANIMAL V692 PROBLEMS 10-21-2012 COMBINED RELATED TO PHYSICIANS HIGH-RISK LA SEXUAL BEHAVIOR 6264 IRREGULAR 10-20-2012 DIANA CARLOTA MENSTRUAL CYCLE V2542 SURVEILLANC 10-20-2012 DIANA CARLOTA E PREV PRSC INTRAUTERN CNTRACPT DEVC 7209 UNSPECIFIED 03-17-2012 ANA M FRANSICO BACKACHE V065 NEED 03-17-2012 ANA M [place] PROPHYLACTI C VACCINATION W/TETANUS-D IPHTH V066 NEED PROPH 03-17-2012 ANA M [place]ANS[place] VACCINATION W/STREP PNEUMONE&FL U 07637 ONYCHIA AND 03-11-2012 [facility] PARONYCHIA EMERGENCY OF TOE PHYS PSC 6262 EXCESSIVE 10-17-2011 SARAH RAN OR FREQUENT MENSTRUATIO N 06555 MATERNAL 10-17-2011 SARAH RAN MENTAL D/O COND/COMPLI CATION V242 ROUTINE 10-17-2011 PATHOLOGY & CYTOLOGY FOLLOW-UP LAB V745 SCREENING 10-17-2011 PATHOLOGY & EXAMINATION CYTOLOGY FOR LAB VENEREAL DISEASE 6159 UNSPECIFIED 08-26-2011 [facility] Y DISEASE OF UTERUS 40105 ABN MAT 08-26-2011 [facility] GLUCOSE JIN & TOLERANCE DUBILIER COMPL PG CB/PP UNS EOC 01898 ABNORMAL 08-26-2011 [facility] MATERNAL [facility] GLUCOSE HOSP TOLERANCE W/DELIVERY 58287 TOBACCO USE 08-26-2011 [facility] D/O COMP [facility] PG HOSP CHILDBIRTH/ PP DELIVERED 72855 08-26-2011 YOHANNES DAGO DISTRESS AFFECT MANAGEMENT MOTH DELIVERED 75427 ABN FETL 08-26-2011 [facility] HRT [facility] RATE/RHYTHM HOSP DELIV W/WO ANTPRTM COND 49662 PUERPERAL 08-26-2011 [facility] ENDOMETRITI [facility] S DELIVERED HOSP W/MEN PP COMP V270 OUTCOME OF 08-26-2011 [facility] DELIVERY [facility] SINGLE HOSP LIVEBORN 91111 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 ANTEPARTUM 43910 ABNORMAL 08-22-2011 [facility] MATERNAL GLUCOSE TOLERANCE ANTEPARTUM 37208 TOB USE D/O 08-22-2011 [facility]ER COMP PG /PP ANTEPARTM COND/COMP 55955 POOR 08-22-2011 [facility] GROWTH MGMT MOTH ANTPRTM COND/COMP 47565 THREATENED 08-15-2011 [facility] PREMATURE LABOR ANTEPARTUM 79656 EDEMA OR 2011 MARIA L Ko EXCESSIVE WEIGHT GAIN ANTEPARTUM V221 SUPERVISION 2011 MEDICAL OF OTHER DIAGNOSTIC [facility] V286 SCREENING 2011 MEDICAL OF DIAGNOSTIC [place] [facility] [place] [address] DIAB W/O 08-01-2011 [facility] BAKER COMP TYPE II/UNS NOT STATED UNCNTRL 37209 MATERNAL 08-01-2011 [facility] DIABETES MELLITUS ANTEPARTUM V5867 LONG-TERM 08-01-2011 [facility] USE OF INSULIN 47520 DECR 07-18-2011 [facility] MOVMNTS MGMT MOTH ANTPRTM COND/COMP 53588 INFECTIONS 07-11-2011 [facility] BAKER OF GENITOURINA RY TRACT ANTEPARTUM V653 DIETARY 06-28-2011 [facility] SURVEILLANC [facility]ATION E AND HOSP COUNSELING V851 BODY MASS 06-28-2011 [facility] INDEX [facility] 30645 LATE 05-16-2011 [facility] VOMITING OF TEAM LEAD ASSOCIATES ANTEPARTUM V2881 ENCOUNTER 04-18-2011 [facility] FOR TEAM LEAD ANATOMIC ASSOCIATES SURVEY V220 SUPERVISION 03-21-2011 LAB [place] [address] UNSPECIFIED 02-13-2011 [facility] DENTAL [facility] CARIES INC 5259 UNSPECIFIED 02-13-2011 [facility] DISORDER EMERGENCY TEETH&SUPPO SERVICES RTING STRUCTURES 67178 OTH CURRENT 02-13-2011 [facility] KIRKPATRICK EMERGENCY CLASSIFIABL SERVICES E ELSW ANTPRTM 6164 OTHER 02-12-2011 [place] ABSCESS OF TEAM LEAD VULVA ASSOCIATES 6238 OTHER 02-12-2011 LAB DARLYN SPECIFIED AMERIC NONINFLAMMA HOLDING TORY DISORDER VAGINA 6235 LEUKORRHEA 01-22-2011 PATHOLOGY & NOT CYTOLOGY SPECIFIED LAB INFECTIVE 46440 MILD 01-22-2011 [place] HYPEREMESIS TEAM LEAD GRAVIDARUM ASSOCIATES ANTEPARTUM 5206 DISTURBANCE 10-16-2010 THE IMPLANT S IN TOOTH & ORAL ERUPTION SURGERY C V7284 UNSPECIFIED 10-16-2010 COMBINED PHYSICIANS PRE-OPERATI LA VE EXAMINATION 29386 REFLUX 09-11-2010 FLORES ESOPHAGITIS DON 7821 RASH AND 09-11-2010 FLORES OTHER DON NONSPECIFIC SKIN ERUPTION 46290 OTHER 03-07-2010 FLORES SPECIFIED DON DISORDERS OF URINARY TRACT 7881 DYSURIA 03-07-2010 FLORES DON 3670 HYPERMETROP 02-24-2010 NE IA VISION V259 UNSPECIFIED 02-17-2010 [facility] PCC VE MANAGEMENT 6160 CERVICITIS 01-17-2010 PATHOLOGY & AND CYTOLOGY ENDOCERVICI LAB TIS V7231 ROUTINE 01-17-2010 [facility] OF EXAMINATION SANKET [facility] 42141 SHORTNESS 12-20-2009 [facility] MEDICAL IMAGING ASSOCIATES 9948 ELECTROCUTI 12-20-2009 B[facility] ON&NONFATAL [facility] ELECTRIC PROF SERV CURRENT 4618 OTHER ACUTE 06-27-2009 FLORES, [place] R [address]2020 ABDOMINAL 02-07-2009 FLORES, PAIN RIGHT DON R LOWER QUADRANT V069 NEED PROPH 02-07-2009 [facility] VACCINATION HEALTH W/UNSPEC [facility] COMB [facility] ACCT VACCINE 7061 OTHER ACNE 10-01-2008 [facility] S[facility] V2549 SURVEILLANC 10-01-2008 [facility] [place] 19640 HEMATURIA 07-07-2008 FLORES, UNSPECIFIED DON R 7880 [...] 7011 ACQUIRED 02-11-2008 FLORES, [place] R [address] OTHER ACUTE 02-10-2008 [facility] POSTOPERATI INC VE PAIN 632 MISSED 02-08-2008 PATHOLOGY & CYTOLOGY LAB 03002 INCOMPLETE 02-08-2008 [place] SPONTANEOUS [facility] AB WITHOUT IMAGING MENTION ASSOCIATES COMP 49172 OTHER 01-13-2008 ENDY Lewis SPECIFED RAHUL CHAVEZ [...] OTITIS DON R MEDIA 6253 DYSMENORRHE 11-04-2007 [facility] PROF SERV 6259 UNSPEC 11-04-2007 FLORES, SYMPTOM DON R ASSOC W/FEMALE GENITAL ORGANS 89767 ABDOMINAL 11-04-2007 [place] PAIN, MEDICAL UNSPECIFIED IMAGING SITE ASSOCIATES 15970 CHEST PAIN 08-25-2007 FLORES, UNSPECIFIED DON R Medications Na ND Rx Da Fi Fi Am Da Di Ph RX Ph St me C No te ll ll ou ys ag ar # ys at rm s nt no ma ic us Or Da si cy ia de te s n re d AZ 37 02 10 [address] Ac [place] 00 -1 -[address] 23 EP ti OS 00 4- 5- 00 SI 10 HE ve EC 45 20 20 DE NS 50 11 11 OT 2 PH DO C AR N 20 MA R .6 CY MG OF TA CY BL NT ET HI AN A AZ 37 02 09 [address] Ac IL 00 -1 -[address] 23 EP ti OS 00 4 9 SI 10 HE ve EC 45 20 20 DE NS 50 11 11 OT 2 PH DO C AR N 20 MA R .6 CY MG OF TA CY BL NT ET HI AN A AZ 37 02 07 5 [address] Ac IL 00 -1 -[address] 23 EP ti OS 00 4 SI 10 HE ve EC 45 20 20 DE NS 50 11 11 OT 2 PH DO C AR N 20 MA R .6 CY MG OF TA CY BL NT ET HI AN A AZ 37 02 05 5 [address] Ac IL 00 -1 -[address] 23 EP ti OS 00 4 8 SI 10 HE ve EC 45 20 20 DE NS 50 11 11 OT 2 PH DO C AR N 20 MA R .6 CY MG OF TA CY BL NT ET HI AN A AZ 37 02 04 5 30 30 EA [...] OF ET CY NT HI AN A AZ 37 02 02 5 30 30 EA [...] 0 [address] Ac AZ 17 -1 -[address] 65 EP [...] 20 20 RT 7 70 10 10 HI 5 PH CH AR AE MA L CY S # 10 05 91 CE 68 06 06 0 21 7 WA 70 GA Ac PH 18 -1 -1 .0 L- 74 IN ti AL 00 3 00 MA 51 EY ve EX 12 20 20 RT 9 IN 20 10 10 HI 1 PH CH 50 AR AE 0 [...] [address] Ac AZ 17 -1 -3 .0 TE 15 EP [...] 00 60 30 WA 70 CL Ac AZ 09 -0 -1 .0 L- 11 AR [...] 20 20 RT 9 00 08 08 HI 1 PH CH AR AE MA L CY S #5 91 00 07 08 00 8. 2 WA 44 GA Ac 09 -1 -0 00 L- 69 IN ti 30 5- 1- 0 MA 53 EY ve 89 20 20 RT 5 00 08 08 HI 5 PH CH AR AE MA L [...] 00 20 10 CL 16 No Ac AZ 11 -2 -2 .0 IN 32 t [...] Procedure DOS Code Location Performer Comment INCISION 53595 CALLIE LEDESMA & 3 TRICE TRICE DRAINAGE ABSCESS SIMPLE/SI NGLE IAADIADOO 17579 SANDRA FLORES 3 DON DON STREPTOCO CCUS GROUP A RADIOLOGI 49056 [facility] RAMSEY C [address] [facility] EXAMINATI INC INC ON TIBIA & FIBULA 2 VIEWS APPLICATI 51264 B[facility]IO RAMSEY ON LONG [address] [facility] LEG INC INC SPLINT THIGH ANKLE/TOE S CRTCHS E0114 [facility] UNDARM 3 OTH THAN WOOD PAIR PAD TIP&HNDGR IP RADEX 39454 [facility] RAMSEY ANKLE 3 [facility] COMPLETE INC INC MINIMUM 3 VIEWS ANTIBODY 56403 COMBINED COMBINED CHLAMYDIA 3 PHYSICIAN PHYSICIAN S LA S LA CUL BACT 38464 COMBINED COMBINED XCPT 3 PHYSICIAN PHYSICIAN URINE S LA S LA BLOOD/STO OL AEROBIC ISOL HEPATITIS 32168 [facility]IO RAMSEY B CORE 3 [facility] ANTIBODY INC INC HBCAB TOTAL HEPATITIS 16077 B[facility]IO RAMSEY B SURF 3 [facility] [place] [address] BRAULIO RAMSEY HEPATITIS 3 [facility] B INC INC SURFACE ANTIGEN HEPATITIS 45149 BRAULIO RAMSEY A 3 [facility] ANTIBODY INC INC HAAB ANTIBODY 96929 BRAULIO RAMSEY HERPES 3 [facility] SMPLX INC INC TYPE 1 ANTIBODY 29964 BRAULIO RAMSEY VIRUS NOT 3 [facility] INC INC ELSEWHERE SPECIFIFE D HEPATITIS 58225 B[facility]IO RAMSEY C 3 [facility] ANTIBODY INC INC INFLUENZA 68480 ANA M ANA M VACC 2 FRANSICO FRANSICO IIV3 SPLIT VIRUS PRSRV FREE ID INCISION 39605 [facility] RUSCHMAN & 2 EMERGENCY [place]ANS[place] DRAINAGE PHYS PSC ABSCESS SIMPLE/SI NGLE IADNA 65251 PATHOLOGY PICKLESIM NEISSERIA 2 & ER JR JAIMEE CYTOLOGY GONORRHOE LAB AE AMPLIFIED PROBE TQ CYTP C/V 33694 PATHOLOGY PICKLESIM AUTO THIN 2 & ER JR JAIMEE LYR CYTOLOGY PREPJ SCR LAB MNL RESCR PHYS IADNA 62003 PATHOLOGY PICKLESIM CHLAMYDIA 2 & ER JR JAIMEE CYTOLOGY TRACHOMAT LAB IS AMPLIFIED PROBE TQ LOW 741 [facility] CERVICAL 2 [facility] [place] [address] DEVONTE MALLOY KENNY SURG 2 JIN & PATHOLOGY EDDIE GROSS&TRICE ROSCOPIC EXAM 28485 [facility] DELIVERY 2 OLIVIA OLIVIA ONLY ANESTHESI 83712 YOHANNES WHITE III A 2 DAGO OUSMANE DELIVERY ONLY US PREG 10959 [facility] UTERUS 2 OLIVIA OLIVIA REAL TIME F/U TRNSABDL PER FETUS IADNA 90314 MEDICAL MEDICAL STREPTOCO 2 DIAGNOSTI DIAGNOSTI CCUS C LAB LLC C LAB LLC GROUP B AMPLIFIED [place] T[place] US PREG 25793 [facility]YS UTERUS 1 OLIVIA OLIVIA REAL TIME F/U TRNSABDL PER FETUS SMR PRIM 95809 [facility] SRC WET 1 OLIVIA OLIVIA MOUNT NFCT AGT DIAB G0109 [facility] SELF-MGMT 1 [facility] CON[facility]ATION TRN SRVC HOSP HOSP GROUP SESSION PER 30 MIN GLUCOSE 77425 LAB DARLYN LAB DARLYN TOLERANCE 1 AMERIC AMERIC TEST GTT HOLDINGS HOLDING 3 SPECIMENS GLUCOSE 86610 LAB [facility] LAB DARLYN TOLERANCE 1 AMERIC AMERIC EA ADDL HOLDINGS HOLDING BEYOND 3 SPECIMENS BLOOD 54059 LAB [facility] LAB D[facility] COUNT 1 AMERIC AMERIC COMPLETE HOLDINGS HOLDING AUTOMATED ANTIBODY 80641 LAB [facility] LAB D[facility] SCREEN 1 AMERIC AMERIC RBC EACH HOLDINGS HOLDING SERUM TECHNIQUE GLUCOSE 37076 LAB D[facility] LAB DARLYN POST 1 AMERIC AMERIC GLUCOSE HOLDINGS HOLDING [place]SE [place] PREG 03946 [place] BEL[facility] UTERUS 1 TEAM LEAD OLIVIA AFTER ASSOCIATE TRIMEST S GESTATION ALPHA-FET 53805 LAB COR LAB COR OPROTEIN 1 YSABEL YSABEL [place] [address] LAB COR LAB COR ESTRIOL 1 YSABEL YSABEL HOLDING [place] GONADOTRO 34821 LAB COR LAB COR PIN 1 YSABEL YSABEL CHORIONIC HOLDING [place] [address] LAB COR LAB COR 1 YSABEL YSABEL HOLDING HOLDING [place] US PREG 38420 [place] BELKYS UTERUS 1 TEAM LEAD OLIVIA REAL TIME ASSOCIATE W/[place] [address] LAB D[facility]N LAB DARLYN NON-IMMUN 1 AMERIC AMERIC OLOGIC HOLDING HOLDING OTH/THN CYTOPATHI C IADNA 04196 PATHOLOGY PATHOLOGY NEISSERIA 1 & & CYTOLOGY CYTOLOGY GONORRHOE LAB LAB AE AMPLIFIED PROBE TQ CYTP C/V 97452 PATHOLOGY PATHOLOGY AUTO THIN 1 & & LYR CYTOLOGY CYTOLOGY PREPJ SCR LAB LAB MNL RESCR PHYS US PREG 94956 [place] [facility] UTERUS 1 TEAM LEAD OLIVIA REAL TIME ASSOCIATE W/IMAGE S DCMTN TRANSVAG IADNA 68582 PATHOLOGY PATHOLOGY CHLAMYDIA 1 & & CYTOLOGY CYTOLOGY TRACHOMAT LAB LAB IS AMPLIFIED PROBE TQ DRUG SCR G0434 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 NOT 1 Y Y CHROMATOG CORPORATI CORPORATI RAPHIC; ON OF AM ON OF AM ANY NUMBER PT ENC ORTHOPANT 83911 THE BAUDILIO OGRAM 1 IMPLANT & DON ORAL SURGERY C GONADOTRO 98253 COMBINED COMBINED PIN 1 PHYSICIAN PHYSICIAN GRIFFIN S LA S LA QUANTITAT LUIZ OPHTH 26260 NE [facility] 0 VISION CHAPARRITA Angelo XM&EVAL COMPRHNSV ESTAB PT 1/> REMOVAL 12241 [facility] IMPLANTAB 0 PHYSICIAN SUSY CONTRERAS GROUP CONTRACEP PCC TIVE CAPSULES IADNA 16796 PATHOLOGY PATHOLOGY CHLAMYDIA 0 & & CYTOLOGY CYTOLOGY TRACHOMAT LAB LAB IS AMPLIFIED PROBE TQ IADNA 36694 PATHOLOGY PATHOLOGY NEISSERIA 0 & & CYTOLOGY CYTOLOGY GONORRHOE LAB LAB AE AMPLIFIED PROBE TQ CYTP C/V 32258 PATHOLOGY PATHOLOGY AUTO THIN 0 & & LYR CYTOLOGY CYTOLOGY PREPJ SCR LAB LAB MNL RESCR PHYS ECG 86201 [facility]IO RAMSEY ROUTINE 0 [facility] ECG INC INC W/LEAST 12 LDS TRCG ONLY W/O I&R RADIOLOGI 81028 [place] Carlos ENAMORADO EXAM 0 MEDICAL NASIM CHEST 2 IMAGING VIEWS ASSOCIATE FRONTAL&L S ATERAL ECG 65990 BRAULIO WESTFALL ROUTINE 0 [facility] W/LEAST PROF SERV 12 LDS I&R ONLY OPHTH 28315 [facility] 9 VISION CHAPARRITA M XM&EVAL COMPRHNSV ESTAB PT 1/> IM ADM 03170 [facility] PRQ ID 9 HEALTH CO HEALTH SUBQ/IM [facility] NJXS 1 BANK ACCT VACCINE MPSV4 82054 [facility] VACCINE 9 HEALTH CO HEALTH GROUPS [facility] ACYW-135 BANK ACCT SUBQ USE IM ADM 91051 [facility] BRAULIO PRQ ID 9 [facility] HEALTH SUBQ/IM [facility] NJXS 1 BANK ACCT VACCINE IM ADM 87903 [facility] B[facility]ULIO PRQ ID 8 [facility] HEALTH SUBQ/IM [facility] NJXS 1 BANK ACCT VACCINE URINE 11942 [facility] RAMSEY 8 [facility] TEST INC INC VISUAL COLOR CMPRSN METHS CULTURE 52584 [facility] RAMSEY BACTERIAL 8 [facility] INC INC QUANTTATI VE COLONY COUNT URINE BLOOD 09465 [facility] RAMSEY COUNT 8 [facility] COMPLETE INC INC AUTO&AUTO DIFRNTL WBC URNLS DIP 73595 [facility] RAMSEY 8 [facility] STICK/TAB INC INC LET REAGENT AUTO MICROSCOP Y US PREG 97588 [facility] FEI, UTERUS 8 MEDICAL NASIM REAL TIME IMAGING W/IMAGE ASSOCIATE DCMTN S TRANSVAG ANESTHESI 55441 [facility] ANESTH CJ FORBES OF THE E/MISSED [facility] [place] [address] PATHOLOGY PATHOLOGY SURG 8 & & PATHOLOGY CYTOLOGY CYTOLOGY LAB LAB GROSS&TRICE ROSCOPIC EXAM US PREG 42193 ENDY Lewis HARJOSE CL, UTERUS 8 MARIMARL MD ENDY Lewis REAL TIME W/IMAGE DCMTN TRANSVAG IADNA 64717 [facility] [place], HERPES 8 [place] INC DOROTHY D SOMPLX VIRUS AMPLIFIED PROBE TQ IADNA 23758 [facility] [place], NEISSERIA 8 [place] INC DOROTHY D GONORRHOE AE AMPLIFIED PROBE TQ IADNA 32807 [facility] [place], CHLAMYDIA 8 [place] INC DOROTHY D TRACHOMAT IS AMPLIFIED PROBE TQ CYTP 87741 [facility] [place], CERV/VAG 8 [place] INC DOROTHY D AUTO THIN LAYER PREP MNL SCREEN URINE 09366 [facility] BRAULIO 8 [facility] HEALTH TEST [facility] VISUAL BANK ACCT COLOR CMPRSN METHS GONADOTRO 25705 COMBINED COMBINED PIN 8 PHYSICIAN PHYSICIAN CHORIONIC S LAB S LAB QUANTITAT LUIZ URNLS DIP [address] [facility] STICK/TAB INC INC LET REAGENT AUTO MICROSCOP Y BLOOD 95689 [facility] RAMSEY COUNT [address] [facility] COMPLETE INC INC AUTO&[place] [address] PAULO FEI, ABDOMEN 8 MEDICAL NASIM W/O IMAGING CONTRAST ASSOCIATE MATERIAL S URINE 71943 [facility] RAMSEY 8 [facility] TEST INC INC VISUAL COLOR CMPRSN METHS BASIC 31209 [facility] RAMSEY METABOLIC 8 [facility] PANEL INC INC CALCIUM TOTAL CT PELVIS 22528 PAULO FEI, W/O 8 MEDICAL NASIM CONTRAST IMAGING MATERIAL ASSOCIATE S 3D 88587 B[facility] RAMSEY RENDERING 8 [facility]OS[facility] INC INC W/INTERP& POSTPROC DIFF WORK STATION CULTURE 62403 B[facility]IO RAMSEY BACTERIAL 8 [facility] HOSP INC INC QUANTTATI VE COLONY COUNT URINE RADEX 97829 SANDRA, SANDRA, RIBS UNI 8 DON R DON R W/POSTERO ANT CH MINIMUM 3 VIEWS Encounters Encounter Start End Date Code Location Performer Type Date EMERGENCY 79971 BRI LEDESMA 5 5 PHYSICIAN TRICE DEPARTMEN S, PLLC T VISIT MODERATE SEVERITY EMERGENCY 97094 [facility] 4 4 [facility] DEPARTMEN EMERGENCY T VISIT PHYSI MODERATE SEVERITY EMERGENCY 89322 [facility] 4 4 [facility] DEPARTMEN T VISIT MODERATE SEVERITY EMERGENCY 25586 CALLIE LEDESMA 3 3 TRICE TRICE DEPARTMEN T VISIT HIGH/URGE NT SEVERITY EMERGENCY 44574 SHERYL COLON 3 3 DEPARTMEN T VISIT MODERATE SEVERITY OFFICE 73152 SANDRA FLORES OUTPATIEN 3 3 DON DON T VISIT 15 MINUTES EMERGENCY 46732 MYNOR JAMESON 3 3 EMERGENCY DEPARTMEN SERVICES T VISIT MODERATE SEVERITY EMERGENCY 03613 [facility] 3 3 [facility] DEPARTMEN INC T VISIT LOW/MODER SEVERITY HOSPITAL [facility] - 3 3 [facility] OUTPATIEN INC T EMERGENCY 97268 CALLIE CALLIE 3 3 TRICE TRICE DEPARTMEN T VISIT HIGH/URGE NT SEVERITY EMERGENCY [address] [facility] DEPARTMEN INC T VISIT MODERATE SEVERITY HOSPITAL [facility] - 3 3 [facility] OUTPATIEN INC T OFFICE 36918 DIANA ORTIZ OUTPATIEN 3 3 [place] CARLOTA T VISIT 25 MINUTES HOSPITAL [facility] - 3 3 [facility] OUTPATIEN INC T OFFICE 80806 ANA M VIRAMONTES OUTPATIEN 2 2 [place]ANS[place] FRANSICO T NEW 30 MINUTES EMERGENCY 96859 [facility] 2 2 EMERGENCY [place] DEPARTMEN PHYS PSC T VISIT HIGH/URGE NT SEVERITY OFFICE 32358 [facility] OUTPATIEN 2 2 OLIVIA OLIVIA T VISIT 15 MINUTES OFFICE 68670 SARAH SINHA OUTPATIEN 2 2 T VISIT 15 MINUTES OFFICE 81355 [facility] OUTPATIEN 2 2 OLIVIA OLIVIA T VISIT 15 MINUTES HOSPITAL [facility] - 2 2 [facility] INPATIENT HOSP OFFICE 43232 [facility] OUTPATIEN 2 2 OLIVIA OLIVIA T VISIT 15 MINUTES OFFICE 00085 [facility] OUTPATIEN 2 2 OLIVIA OLIVIA T VISIT 15 MINUTES OFFICE 08120 MARIA L Ko OUTPATIEN 2 2 T VISIT 15 MINUTES OFFICE 53121 [facility] OUTPATIEN 2 2 OLIVIA OLIVIA T VISIT 15 MINUTES OFFICE 99749 [facility] 1 1 OLIVIA OLIVIA T VISIT 15 MINUTES OFFICE 13135 [facility] 1 1 OLIVIA OLIVIA T VISIT 15 MINUTES OFFICE 30217 [facility] 1 1 [facility] OLIVIA T VISIT 15 MINUTES [facility]OSP[facility] - 1 1 CONGREGATION OUTPATIEN HOSP T OFFICE 14621 SARAH SMITH RAN OUTPATIEN 1 1 T VISIT 15 MINUTES OFFICE 66456 [facility] BENITO OUTPATIEN 1 1 TEAM LEAD DEN T VISIT ASSOCIATE 15 S MINUTES OFFICE 89063 [facility]EN[facility]O OUTPATIEN 1 1 TEAM LEAD DEN T VISIT ASSOCIATE 15 S MINUTES OFFICE 02030 [facility]EN[facility]O OUTPATIEN 1 1 TEAM LEAD DEN T VISIT ASSOCIATE 15 S MINUTES OFFICE 38893 [facility] BENITO OUTPATIEN 1 1 TEAM LEAD DEN T VISIT ASSOCIATE 15 S MINUTES EMERGENCY 62859 MYNOR LEDESMA 1 1 EMERGENCY TRICE DEPARTMEN SERVICES T VISIT HIGH/URGE NT SEVERITY EMERGENCY 75027 [facility] 1 1 [facility] DEPARTMEN INC T VISIT LIMITED/M INOR [facility] - 1 1 [facility] OUTPATIEN INC T OFFICE 00576 AF[facility] SLATER OUTPATIEN 1 1 TEAM LEAD T VISIT ASSOCIATE 15 S MINUTES OFFICE 30383 [facility] RIZVI OUTPATIEN 1 1 TEAM LEAD OLIVIA T NEW 45 ASSOCIATE MINUTES S OFFICE 52091 THE BAUDILIO OUTPATIEN 1 1 IMPLANT & DON T NEW 20 ORAL MINUTES SURGERY C OFFICE 25013 SANDRA FLORES OUTPATIEN 1 1 DON DON T VISIT 15 MINUTES OFFICE 87107 SANDRA FLORES OUTPATIEN 0 0 DON DON T VISIT 15 MINUTES PERIODIC 09108 WOMEN'S ORTIZ, PREVENTIV 0 0 HEALTH REID J E MED EST [facility]INIC OF PATIENT [facility] - 0 0 [facility] OUTPATIEN INC T EMERGENCY 92178 [facility] 0 0 [facility] DEPARTMEN INC T VISIT LOW/MODER SEVERITY EMERGENCY 69839 MYNOR LEDESMA, 0 0 EMERGENCY [facility] T VISIT MODERATE ASSOCIATE SEVERITY S EMERGENCY 18250 MYNOR LEDESMA, DEPT [address] [facility] VISIT SERVICES HIGH SEVERITY& ASSOCIATE THREAT S [facility] - 0 0 [facility] OUTPATIEN INC T EMERGENCY 78021 [facility] 0 0 [facility] DEPARTMEN INC T VISIT LOW/MODER SEVERITY OFFICE 03314 SANDRA FLORES OUTPATIEN 9 9 DON R DON R T VISIT 15 MINUTES OFFICE 58914 SANDRA FLORES OUTPATIEN 9 9 DON R DON R T VISIT 15 MINUTES OFFICE 55186 [facility] OUTFRANCISEN 9 9 [facility] 10 BANK ACCT MINUTES OFFICE 26556 [facility] 9 9 HEALTH REID J T 30 [facility] OFFICE 75813 [facility] OUTPATIEN 9 9 [facility] 10 BANK ACCT MINUTES OFFICE 18537 [facility] OUTPATIEN 8 8 [facility] 10 BANK ACCT MINUTES OFFICE 92821 SANDRA FLORES OUTPATIEN 8 8 DON R DON R T VISIT 25 MINUTES OFFICE 20397 TIM B[facility] 8 8 RAHUL Lewis T VISIT 15 MINUTES HOSPITAL [facility] - 8 8 [facility] OUTPATIEN INC T EMERGENCY 42018 [facility] 8 8 [facility] DEPARTMEN INC T VISIT LIMITED/M INOR PROB OFFICE 03904 SANDRA FLORES OUTPATIEN 8 8 DON R DON R T VISIT 15 MINUTES OFFICE 31249 TIM BEC[facility] 8 8 RAHUL Lewis T VISIT 15 MINUTES OFFICE 21012 SANDRA FLORES OUTPATIEN 8 8 DON R DON R T VISIT 15 MINUTES [facility]OSPITAL [facility] - 8 8 [facility] INC T EMERGENCY [address] [facility] [address] [facility] DEPARTMEN INC T VISIT HIGH/URGE NT SEVERITY OFFICE 80130 TIM [place] 8 8 RAHUL SCHUMACHER R T VISIT 15 MINUTES OFFICE 06312 ENDY KAY OUTPATIALEXIS 8 8 RAHUL Lewis T NEW 60 MINUTES OFFICE 01763 [facility]IO [facility] 8 8 [facility] VIS[facility] 15 BANK ACCT MINUTES OFFICE 61140 [facility] 8 [facility] T VISIT [facility]IN[facility] OF 15 MINUTES [facility] 22680 BRAULIO LEO, 8 8 [facility] T VISIT PROF SERV MODERATE SEVERITY [facility]OSP[facility] BRAULIO - 8 8 [facility] T OFFICE 97561 SANDRA FLORES OUTPATIEN 8 8 DON R DON R T VISIT 15 MINUTES OFFICE 55030 SANDRA FLORES OUTPATIEN 8 8 DON R DON R T VISIT 15 MINUTES OFFICE 10287 SANDRA FLORES OUTPATIEN 8 8 DON R DON R T VISIT 15 MINUTES
--- OUTSIDE RECORDS SUMMARY | 2017-05-03 11:04 | External Medical Summary Rpt ---
Author Author , ИВАН OATES Address Unknown Phone [email or web address] Immunization Name Date Rout CVX Reac Dose Comm Prov Is Faci e tion ent ider Refu lity Give sed n Meni 07-1 32 999 Hist H149 No H149 peggy 3-20 oric occa 09 al l Info MPSV rmat 4 ion - Sour ce Unsp ecif ied HPV4 07-1 62 999 Hist H149 No [...]
--- OUTSIDE RECORDS SUMMARY | 2017-05-03 11:04 | External Medical Summary Rpt ---
Author Author , ИВАН OATES Address Unknown Phone [email or web address] Immunization Name Date Rout CVX Reac Dose [...]
== END 2017-03-28 18:11 | disposition home or self-care (01) | DRG 690 ==
LOC: ER 00:58 → ICU 02:39
PROVIDERS: Emergency Medicine
DX: N39.0 Urinary tract infection, site not specified (principal); B96.20 Unspecified Escherichia coli [E. coli] as the cause of diseases classified elsewhere
CPT/HCPCS: G0432

== ENCOUNTER 2017-03-29 08:25 | Outpatient (CLI) | payer SELFPAY ==
[~2017-03-29 08:25] MED LIST changes: +INVANZ 1 GM1 GM IM
[2017-03-29 09:30] VITALS: BP 98/53
== END 2017-03-29 11:30 | disposition home or self-care (01) ==
LOC: COP 08:25
DX: A41.51 Sepsis due to Escherichia coli [E. coli] (principal)
CPT/HCPCS: J1335